=== PATIENT | male | born 1935 | race Caucasian/White ===

== ENCOUNTER → 2018-04-20 10:00 | Outpatient (CLI) | payer MEDICARE, SELFPAY ==
--- NOTE | 2018-04-20 10:07 | RAD_ITS ---
STUDY: X-RAY - LUMBAR SPINE REASON FOR EXAM: Male, 83 years old. Chronic low back pain. The pain radiates down both lower extremities. TECHNIQUE: 5 view(s) of the lumbar spine were obtained including oblique views. COMPARISON: None FINDINGS: There is straightening of the normal lumbar lordosis. There is a mild levoscoliosis of the lumbar spine. There is a normal alignment of the vertebrae. There is multilevel endplate spondylosis of the lumbar vertebrae. There is multi-level degenerative disc disease with multi-level disc space narrowing. There is atherosclerotic calcification of the abdominal aorta without a demonstrated aneurysm. RAD/L/S Spine Min 4 Views IMPRESSION: Degenerative changes of the spine, as detailed above. Straightening of the normal lumbar lordosis. Electronically Signed: Rodrigo Rivero MD at 11:02 EST Tel [phone], Service support ,
== END ==
PROVIDERS: Family Provider Nurse Practitioner; PCP Nurse Practitioner; Referring Provider Nurse Practitioner; Visit Provider Nurse Practitioner
DX: M51.16 Intervertebral disc disorders with radiculopathy, lumbar region (principal); M47.896 Other spondylosis, lumbar region; M48.061 Spinal stenosis, lumbar region without neurogenic claudication
CPT/HCPCS: 72110

== ENCOUNTER 2018-04-22 10:34 | Outpatient (RCR) | payer MEDICARE, SELFPAY ==
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
--- NOTE | 2018-08-05 16:20 | HP.PT.NRP ---
HP - Discharge Summary (1) - Patient Information UZAIR GIRON was seen in my office for initial evaluation on 04/22/18. The following Plan of Care was established for this patient: Initial Frequency: 2-3x /Week Initial Duration: 4-6 Weeks - Anticipated Interventions Patient/Client Instruction: Educate patient on: Condition, Plan of Care, Risk Factors, Benefits of Fitness Program For the Purpose of:: To improve self management Therapeutic Exercise to Include: Strength training, Body mechanics, Postural training, Flexibilty training, Gait and locomotor training, Active ROM, Dynamic Lumbar Stabilization For the Purpose of:: To decrease pain, To increase ROM, To improve muscle performance and motor function, To increase tolerance to activity/condition/position, To improve ability of physical actions for home/community/work/leisure, To improve gait and locomotor functions This patient was last seen in our office 04/22/18. Pertinent comments regarding their Physical therapy will appear below: This patient has not returned to Physical Therapy and is appropriate to return to MD for further follow-up as needed. At this point I will be discontinuing this patient from physical therapy. I would be happy to see this patient again in the future if found appropriate by the physician. Thank you! Keshia Estevez, PT, Cert MDT
== END 2018-04-22 19:00 | disposition home or self-care (01) ==
LOC: PT 10:34
PROVIDERS: Family Provider Nurse Practitioner; PCP Nurse Practitioner; Referring Provider Nurse Practitioner Gerontology; Visit Provider Nurse Practitioner Gerontology
DX: M54.31 Sciatica, right side (principal); M54.9 Dorsalgia, unspecified
CPT/HCPCS: 97162

== ENCOUNTER → 2018-07-19 11:49 | Outpatient (CLI) | payer MEDICARE, SELFPAY ==
[2013-10-22 17:37] VITALS: BMI 27.9
--- NOTE | 2018-07-19 11:56 | RAD_ITS ---
STUDY: X-RAY CHEST REASON FOR EXAM: Male, 83 years old. Dyspnea. Shortness of breath. TECHNIQUE: PA and lateral views of the chest. COMPARISON: None. FINDINGS: Mild deviation of the trachea towards the left side of the midline. This may represent changes secondary to enlarged right lobe of the thyroid. Small bilateral pleural effusions left greater than right with bibasilar atelectasis and/or infiltrates. Follow-up is recommended. Mild vascular congestion. Normal size heart. Normal mediastinum and kiarra. Normal visualized pulmonary arteries. Normal visualized aortic arch and descending thoracic aorta. There are diffuse degenerative changes of the visualized thoracic spine. Normal visualized ribs, clavicles, and shoulders. There is no demonstrated abnormality of the visualized soft tissue structures of the upper abdomen. RAD/Chest PA and Lateral IMPRESSION: Small bilateral pleural effusions with bibasilar infiltration and/or atelectasis worse on the left side. Mild vascular congestion. Follow-up is recommended. Electronically Signed: Rodrigo Rivero MD at 13:23 EST , Service support ,
== END ==
PROVIDERS: Family Provider Nurse Practitioner; PCP Nurse Practitioner; Referring Provider Internal Medicine; Visit Provider Internal Medicine
DX: J90 Pleural effusion, not elsewhere classified (principal); R91.8 Other nonspecific abnormal finding of lung field; R06.02 Shortness of breath
CPT/HCPCS: 71046

== ENCOUNTER → 2018-07-25 08:40 | Outpatient (CLI) | payer MEDICARE, SELFPAY ==
[2013-10-22 17:37] VITALS: BMI 27.9
--- NOTE | 2018-07-25 08:44 | ECHOD_ITS ---
Reason For Study: SOB Procedure This was a 2D Doppler, Color Flow transthoracic echocardiogram. Myocardial strain analysis was performed in this exam to aid in the assessment of cardiac function. Exam performed in department. Left Ventricle Normal LV size. Sigmoid septum. Left ventricular systolic function is normal. The estimated ejection fraction is 60 %. Stage 1 diastolic dysfunction. No regional wall motion abnormalities noted. Right Ventricle Normal RV size. Normal systolic function. Atria Normal left atrium. Normal right atrium. Hypermobile atrial septum. Mitral Valve Normal mitral valve. Tricuspid Valve Normal tricuspid valve. Aortic Valve Trisinus/trileaflet aortic valve. Mild focal aortic valve calcification. Pulmonic Valve Normal pulmonic valve. Great Vessels Normal aortic root. The pulmonary artery is normal size. Normal inferior vena cava. Pericardium/Pleural No pericardial effusion. Medication Performed a rapid injection of agitated mix of 9 cc saline and 1cc air to assess for atrial septal defect. MMode/2D Measurements & Calculations LVIDd: 3.8 cm IVSd: 1.5 cm Ao root diam: 3.2 cm LVIDs: 2.6 cm LVPWd: 1.1 cm RVDd: 4.0 cm FS: 32.2 % LAV(MOD-bp): 42.4 ml LVAd ap4: 22.7 cm2 SV(MOD-sp4): 39.2 ml LAV(MOD-bp) Indexed: 21.8 ml/m2 EDV(MOD-sp4): 54.5 ml LAV(MOD-sp2): 49.2 ml EDV(sp4-el): 54.8 ml LAV(MOD-sp4): 34.8 ml LVAs ap4: 10.3 cm2 ESV(MOD-sp4): 15.3 ml ESV(sp4-el): 13.9 ml EF(MOD-sp4): 71.9 % EF(sp4-el): 74.6 % SV(sp4-el): 40.9 ml LA A4 area: 16.1 cm2 LA dimension(2D): 3.4 cm RA A4 area: 13.6 cm2 Doppler Measurements & Calculations MV E max chas: 66.9 cm/sec Lat Peak E' Chas: 5.9 cm/sec Med Peak E' Chas: 4.3 cm/sec MV A max chas: 104.6 cm/sec E/E' lat: 11.3 E/E' med: 15.5 MV E/A: 0.64 Ao V2 max: 172.9 cm/sec LV V1 max: 129.1 cm/sec PA V2 max: 98.5 cm/sec Ao max P.0 mmHg LV V1 max P.7 mmHg Ao V2 mean: 136.3 cm/sec Ao mean P.9 mmHg Ao V2 VTI: 35.5 cm PI end-d chas: 135.2 cm/sec TR max chas: 297.1 cm/sec TR max P.3 mmHg Interpretation Summary Hypermobile atrial septum. Normal LV size. Sigmoid septum. Left ventricular systolic function is normal. The estimated ejection fraction is 60 %. Stage 1 diastolic dysfunction. The global longitudinal strain is normal. The global longitudinal strain = -20.2 % (normal). Ordering Physician: Whit Hodges Referring Physician: Whit Hodges Performed By: Sudha Drake, ANDREW, RVT
--- NOTE | 2018-07-25 09:35 | RAD_ITS ---
STUDY: X-RAY CHEST REASON FOR EXAM: Male, 83 years old. Increasing shortness of breath. TECHNIQUE: PA and lateral views of the chest. COMPARISON: Comparison is made with prior study dated July 19, 2018. FINDINGS: The previously seen indentation along the right side of the trachea is not seen at this time. This may have been positional in nature. Stable left pleural effusion with underlying infiltration and/or atelectasis. Stable small right pleural effusion with underlying infiltration and/or atelectasis. Normal size heart. Normal mediastinum and kiarra. Normal visualized pulmonary arteries. There is atherosclerotic tortuosity of the aortic arch and descending thoracic aorta. There are diffuse degenerative changes of the visualized thoracic spine. Normal visualized ribs, clavicles, and shoulders. There is no demonstrated abnormality of the visualized soft tissue structures of the upper abdomen. RAD/Chest PA and Lateral IMPRESSION: Stable bilateral pleural effusions with underlying infiltration and/or atelectasis worse on the left side. Electronically Signed: Rodrigo Rivero MD at 10:19 EST , Service support ,
== END ==
PROVIDERS: Family Provider Nurse Practitioner; PCP Nurse Practitioner; Referring Provider Internal Medicine; Visit Provider Internal Medicine
DX: R06.02 Shortness of breath (principal)
CPT/HCPCS: 71046; 93306; A4216

== ENCOUNTER → 2018-08-16 11:53 | Outpatient (CLI) | payer MEDICARE, SELFPAY ==
--- NOTE | 2018-08-16 12:30 | RAD_ITS ---
STUDY: X-RAY CHEST REASON FOR EXAM: Male, 83 years old. Status post right thoracentesis. TECHNIQUE: Portable inspiration and expiration views. COMPARISON: Comparison is made with prior study dated July 25, 2018. FINDINGS: The patient is status post right thoracentesis. There is no evidence of pneumothorax. Mild residual blunting of the right phrenic angle with increased markings at the right base suggestive of atelectasis. Small left pleural effusion with underlying infiltration. RAD/Chest Insp/Exp 2 View IMPRESSION: Status post right thoracentesis. There is no evidence of pneumothorax. Electronically Signed: Rodrigo Rivero, at 13:45 EST , Service support ,
--- NOTE | 2018-08-16 12:31 | US_ITS ---
PROCEDURE: ULTRASOUND GUIDED THORACENTESIS. DATE: August 16, 2018.. INDICATION: Male, 83 years old. Right pleural effusion. PHYSICIAN: Rodrigo Rivero M.D. PROCEDURE: The risks, benefits, and alternatives to the procedure were explained to the patient. The specific risks of bleeding, infection, and pneumothorax requiring chest tube insertion were discussed and accepted. Written informed consent was obtained. Ultrasonographic evaluation of the right lower pleural space was carried out. An adequate pocket was identified. The patient was placed in the sitting, upright position. The overlying skin was prepped and draped in sterile fashion. 1% lidocaine was administered subcutaneously for local anesthesia. Under ultrasound guidance, a 5 Salvadorean thoracentesis needle/catheter system was advanced into the right posterior lower pleural fluid collection. Approximately 950 mL of thick nafisa-colored fluid was drained. The catheter was removed, and a sterile dressing was applied. The patient tolerated the procedure well. A chest x-ray was ordered. US/Thoracentesis W US IMPRESSION: Ultrasound-guided right thoracentesis. Electronically Signed: Rodrigo Rivero, at 14:09 EST , Service support ,
[2018-08-16 12:37] LABS: International Normalized Ratio 1.2; Prothrombin Time (Protime)PT. 14.6 SECONDS (11.7-14.9)
[2018-08-16 14:49] VITALS: BP 113/40; BP 113/58; BP 114/47; BP 139/61; PULSE 71; PULSE 75; PULSE 80; PULSE 81; RESP 16; RESP 18; O2SAT 94; O2SAT 95
== END ==
PROVIDERS: Family Provider Nurse Practitioner; PCP Nurse Practitioner; Referring Provider Internal Medicine Hematology & Oncology; Visit Provider Internal Medicine Hematology & Oncology
DX: J90 Pleural effusion, not elsewhere classified (principal); C85.90 Non-Hodgkin lymphoma, unspecified, unspecified site
CPT/HCPCS: 32555; 36415; 71046; 85610

== ENCOUNTER 2019-02-28 15:29 | Inpatient (IN) | payer MEDICARE, SELFPAY ==
[2019-02-28 15:29] VITALS: BP 125/68; PULSE 91; RESP 16; TEMP 37.7; O2SAT 94; BMI 27.1
--- NOTE | 2019-02-28 15:36 | RAD_ITS ---
STUDY: X-RAY - LEFT WRIST REASON FOR EXAM: Male, 83 years old. Cellulitis. Pain. TECHNIQUE: 3 view(s) of the wrist were obtained. COMPARISON: None. FINDINGS: There is generalized osteopenia. Normal visualized distal radius and ulna. There is degenerative arthrosis of the radiocarpal articulation. Normal distal radioulnar articulation. Normal carpal bones. There is degenerative arthrosis of the carpal articulations. There is degenerative arthrosis of the carpometacarpal articulation of the thumb. Normal second through fifth carpometacarpal articulations. There is a healed fracture of the third metacarpal. Otherwise normal visualized metacarpal bones. The soft tissue structures are unremarkable. There is generalized soft tissue swelling over the wrist and base of the hand. RAD/Wrist min 3 Views IMPRESSION: 1. Degenerative changes without evidence of acute fracture, dislocation or destructive osseous pathology. 2. Diffuse soft tissue swelling over the wrist and base of the hand. 3. Generalized osteopenia. 4. Healed fracture of the third metacarpal. Electronically Signed: Magno Martinez DO at 16:21 EDT Tel [phone], Service support ,
--- NOTE | 2019-02-28 15:37 | ED.DCSUM_ITS ---
History of Present Illness Chief Complaint: Cellulitis Informant: Patient Onset: Days Context: Gradual Onset Timing: Continuous Current Severity: Moderate Maximum Severity: Moderate Narrative: The patient presents to the emergency department with cellulitis of his left arm. The patient had a mechanical fall on . He was wearing a watch on his left wrist. He fell in the grass and suffered an abrasion to the wrist. Over the past 24 hours, the area has gotten more swollen, red, and more painful. He does not think he had a fever. He was actually seen at his primary care office and sent over for further evaluation. The patient does have a history of lymphoma and is on Velcade and Rituxan. He does follow with Dr. Juares. He does get treatment 3 times a month. He denies any other systemic symptoms. He has not taken anything for it. When he fell, he did not strike his head or lose consciousness. Prior similar symptoms: No Recent Illness/Hospitalization: No Past Medical History - Allergies and Home Meds Allergies/Adverse Reactions: Allergies No Known Allergies Allergy (Verified 10/22/13 17:38) Primary Care Physician: Jessica Collins NP-C [Primary Care Provider] - Prior records reviewed: Yes Past Medical History: - - Lymphoma, MGUS Smoking Status: Unknown if ever smoked Review of Systems General: Denies: Chills, Fever, Sweats Eyes: Denies: Visual changes - bilaterally, Diplopia ENT: Denies: Rhinorrhea, Sore throat Cardiovascular: Denies: Chest pain, Palpitations Respiratory: Denies: Dyspnea, Cough, Dyspnea on exertion Gastrointestinal: Denies: Abdominal pain, Nausea, Vomiting, Diarrhea, Melena, Hematochezia Genitourinary: Denies: Dysuria, Hematuria, Frequency Musculoskeletal: Denies: Back pain, Extremity Pain Skin: Denies: Rash, Wounds Neurological: Denies: Headache, Weakness, Numbness Physical Exam Vital Signs/Narrative: Vital Signs Temp Pulse Resp BP Pulse Ox 02/28/19 15:29 100 F H 91 16 125/68 H 94 Inital Vital Signs reviewed: Yes General: Well nourished, Well developed, No Acute Distress Head: Normocephalic, Atraumatic Eyes: Perrl, EOMI ENT: Moist mucous membranes, No rhinorrhea Neck: Supple, Nontender Cardiovascular: Regular rate, Regular rhythm, No murmurs Respiratory: No distress, CTA bilaterally, Chest nontender Abdomen: Soft, Nontender, Nondistended, Normal bowel sounds Back: Nontender, Normal Inspection Extremities: Tenderness, Edema - Patient has edema, erythema, and cellulitis on the dorsum of the left wrist with some skin breakdown. There is lymphangitic streak into the axilla. There is no crepitus. Skin: Normal color, No rash Neurological: Alert, Oriented x3, Cranial nerves II-XII grossly intact, Normal Strength, Normal Sensation Psychological: Normal affect, Normal Mood Diagnostic/Tx/Re-eval Clinical Impression(s) from Imaging Studies Wrist X-Ray 02/28/19 15:36 IMPRESSION: 1. Degenerative changes without evidence of acute fracture, dislocation or destructive osseous pathology. 2. Diffuse soft tissue swelling over the wrist and base of the hand. 3. Generalized osteopenia. 4. Healed fracture of the third metacarpal. Electronically Signed: Magno Martinez DO at 16:21 EDT Tel [phone], Service support , Abnormal Lab Results 02/28/19 02/28/19 02/28/19 15:44 15:44 15:44 WBC 16.3 H RBC 4.31 L Hgb 12.8 L Hct 41.0 MCV 95.1 H MCH 29.7 MCHC 31.2 L RDW Std Deviation 52.5 H RDW Coeff of So 14.8 H Plt Count 182 MPV 10.5 Immature Gran % (Auto) 0.400 Neut % (Auto) 81.1 H Lymph % (Auto) 8.7 L Victoria % (Auto) 9.5 Eos % (Auto) 0.1 Baso % (Auto) 0.2 Absolute Neuts (auto) 13.2 H Absolute Lymphs (auto) 1.42 Nucleated RBC % 0 PT 15.6 H INR 1.3 Sodium 134 L Potassium 4.2 Chloride 102 Carbon Dioxide 29.0 Anion Gap 3 L BUN 21 H Creatinine 1.52 H Estim Creat Clear Calc 38.11 Est GFR (MDRD) Af Amer 57 L Est GFR (MDRD) Non-Af 47 L BUN/Creatinine Ratio 13.8 Glucose 108 H Lactic Acid Calcium 8.7 Total Bilirubin 1.20 H AST 10 L ALT 19 Alkaline Phosphatase 52 Total Protein 7.4 Albumin 2.8 L Globulin 4.6 H Albumin/Globulin Ratio 0.6 L 02/28/19 15:44 WBC RBC Hgb Hct MCV MCH MCHC RDW Std Deviation RDW Coeff of So Plt Count MPV Immature Gran % (Auto) Neut % (Auto) Lymph % (Auto) Victoria % (Auto) Eos % (Auto) Baso % (Auto) Absolute Neuts (auto) Absolute Lymphs (auto) Nucleated RBC % PT INR Sodium Potassium Chloride Carbon Dioxide Anion Gap BUN Creatinine Estim Creat Clear Calc Est GFR (MDRD) Af Amer Est GFR (MDRD) Non-Af BUN/Creatinine Ratio Glucose Lactic Acid Cancelled Calcium Total Bilirubin AST ALT Alkaline Phosphatase Total Protein Albumin Globulin Albumin/Globulin Ratio - Medical Decision Making The patient presents with cellulitis of the dorsum of the left wrist with lymphangitic streaking. He does have a history of immunosuppression and is on chemotherapy for his lymphoma. Metabolic work-up was pursued. Patient does have a leukocytosis and a T-max of 100. However, he is not tachycardic or tachypneic. Blood cultures were obtained. The patient will be started on broad-spectrum antibiotics. Even his symptoms and lymphangitic spread, I do feel that he is going to benefit from admission. The patient was discussed with the hospitalist. Impression 1. Left hand and wrist cellulitis with lymphangitic streak ED Disposition - Plan for ED Patient: Referrals: Jessica Collins, [employer]-C [Primary Care Provider] -
[2019-02-28] MEDS: 0.9% Normal Saline 1,000 ML 1000 ML IV (15:52)
[2019-02-28 16:05] LABS: Absolute Lymphocyte Count 1.42 X10^3/uL (0.83-4.51); Absolute Neutrophil Count 13.2 X10^3/uL (2.0-7.7); Basophil# 0.03 X10^3/uL; Basophil% 0.2 % (0-1); Eosinophil# 0.02 X10^3/uL; Eosinophils% 0.1 % (0-5); Hemoglobin 12.8 g/dL (13.0-16.5); Lymphocyte # 1.42 X10^3/ul (4.0); Lymphocyte % 8.7 % (19-41); Mean Corp Hgb Conc 31.2 g/dL (32-36); Mean Corpuscular Hgb 29.7 pg (27.0-32.0); Mean Corpuscular Volume 95.1 fL (80-94); Mean Platelet Vol. 10.5 fl (6.2-12.0); Monocyte# 1.54 X10^3/uL; Monocyte% 9.5 % (0-10); NRBC Flagged by Analyzer 0 % (0-5); Neutrophil # 13.19 X10^3/uL (2.7-7.7); Neutrophil % 81.1 % (47-70); POSITIVE DIFFERENTIAL YES; Platelet Count 182 K/mm3 (150-450); RBC Distribution Width CV 14.8 % (11.6-14.6); RBC Distribution Width SD 52.5 fl (35.1-43.9); Red Blood Count 4.31 M/mm3 (4.6-6.2); White Blood Count 16.3 K/mm3 (4.4-11.0)
[2019-02-28 16:09] LABS: Differential Indicated SCAN CRITERIA MET
--- NOTE | 2019-02-28 16:09 | NURSING ---
NEEDS REDRAW ON LACTIC ACID. THEY WILL REPRINT LABELS
[2019-02-28 16:12] LABS: International Normalized Ratio 1.3; Prothrombin Time (Protime)PT. 15.6 SECONDS (11.7-14.9)
[2019-02-28 16:20] LABS: ALB/GLOB Ratio 0.6 RATIO (0.9-2.4); AST(SGOT) 10 U/L (15-37); Alanine Aminotransfer ALT/SGPT 19 U/L (16-61); Albumin, Serum 2.8 g/dL (3.2-5.0); Alkaline Phosphatase 52 U/L (45-117); Anion Gap 3 (5-15); BUN 21 mg/dL (7-18); BUN/Creat Ratio 13.8 RATIO (10-20); Calcium,Total 8.7 mg/dL (8.5-10.1); Chloride 102 mmol/L (98-107); Creatinine, Serum 1.52 mg/dL (0.70-1.30); EST Glomerular Filtration Rate 47 mL/min (>60); Est Glom Filt Rate - Afr Amer 57 mL/min (>60); Estimated Creatinine Clearance 38.11 ml/min; Globulin 4.6 g/dL (2.2-4.2); Glucose 108 mg/dL (74-106); Potassium 4.2 mmol/L (3.5-5.1); Protein, Total 7.4 g/dL (6.4-8.2); Sodium Level 134 mmol/L (136-145)
[2019-02-28 16:23] VITALS: BMI 27.2
[2019-02-28] MEDS: Ceftriaxone 1 GM/50 ML BAG IV (16:37)
[2019-02-28 16:38] LABS: Differential Comment SCANNED
--- NOTE | 2019-02-28 16:38 | NURSING ---
MED SURG CELLULITIS LT ARM JOÃO OBS
--- NOTE | 2019-02-28 16:53 | HP.PCM_ITS ---
Problem List (1) Lymphoma Status: Acute (2) Cellulitis of arm, left Status: Acute History of Present Illness Date of Admission: 02/28/19 Chief Complaint: Right arm redness and swelling The patient is a 83 year old M with a history of lymphoma presents after a fall on . He was outside and fell on his left side without loss of consciousness, the fall was mechanical, and he landed on his left wrist and was wearing a watch at the time. The watch caused an abrasion but he did not think anything of it, and he treated it locally. On Wednesday he noticed some redness and then today he noticed some significant swelling with spreading of the redness up into his left armpit. He went to his PCP who recommended he come into the ER. In the ER he was found to have a leukocytosis of 16 as well as a temperature of 100, without any signs of sepsis. Currently lactate is pending. An x-ray of the left wrist was negative for any fracture or signs of osteomyelitis. He was given a dose of Rocephin and vancomycin in the ER. Past Medical History Allergies No Known Allergies Allergy (Verified 10/22/13 17:38) Home Medications: Ambulatory Orders Medication Instructions Recorded Acyclovir [Zovirax] 200 po.syringe PO BID 02/28/19 Cholecalciferol (Vitamin D3) 2,000 unit PO DAILY 02/28/19 [Vitamin D3] Dexamethasone 20 mg PO PRN 02/28/19 Finasteride 5 mg PO DAILY 02/28/19 Furosemide [Lasix] 40 mg PO DAILY 02/28/19 Losartan Potassium 100 mg PO DAILY 02/28/19 Melatonin 10 mg PO QHS PRN PRN 02/28/19 Tamsulosin HCl 0.4 mg PO DAILY 02/28/19 Surgical History: - - Back surgery Smoking Status: Former smoker Tobacco Use: Cigarettes Alcohol: None Drugs: None - *Family History Paternal History Items: Cancer Review of Systems Constitutional: Denies: Chills, Fever, Weight Change HEENT: Denies: Head Aches, Sinus Congestion, Sinus Drainage Cardiovascular: Denies: Chest Pain, Palpitations Respiratory: Denies: Cough, Shortness of breath at rest, Sputum production Gastrointestinal: Denies: Abdominal Pain, Nausea, Vomiting Genitourinary: Denies: Dysuria Musculoskeletal: Denies: Joint Pain, Joint Tenderness Skin: Reports: Wounds - 2 wounds on his left wrist with no purulent drainage but surrounding erythema with streaking up into his left axilla. Denies: Rash Neurological: Denies: Numbness, Tingling, Focal weakness Psychiatric: Denies: Anxiety, Depression Hematologic/ Lymphatic: Denies: Easy Bruising, Easy Bleeding VTE Information - Inpt Only VTE Present on Admission: No Patient Problems: Active and Suspected Problems Lymphoma (Acute) Cellulitis of arm, left (Acute) - Physical Exam General: Alert, Oriented x3, Cooperative, No apparent distress HEENT: Atraumatic, PERRLA, EOMI, Normocephalic Oral: Moist Mucosa Neck: Supple, No JVD Lungs: Clear to auscultation, Normal air movement, No rhonchi, No wheeze, No rales Cardiovascular: Regular rate, Regular Rhythm, Normal S1, Normal S2, No murmurs Abdomen: Soft, Non Tender, Non-Distended, No Hepato-splenomegaly Extremities: No edema, Capillary Refill Less than 3 Seconds Skin: Ulcer/ Wound - 2 wounds on his left dorsal wrist with surrounding erythema and swelling. There appears to be spread of the erythema up into his left axilla Neurological: Neuro grossly intact, Sensory exam intact to light touch and pain Psych/Mental Status: Normal Affect, Appropriate Vital Signs Temp Pulse Resp BP Pulse Ox 100 F H 91 16 125/68 H 94 02/28/19 15:29 02/28/19 15:29 02/28/19 15:29 02/28/19 15:29 02/28/19 15:29 Weight: 184 lb Body Mass Index (BMI) 27.1 Intake and Output for Last 24 Hours 02/26/19 02/27/19 02/28/19 23:59 23:59 23:59 Intake Total 766.67 / 766.67 Balance 766.67 / 766.67 Laboratory Tests Past 24 Hrs 02/28/19 02/28/19 02/28/19 15:44 15:44 15:44 WBC 16.3 H RBC 4.31 L Hgb 12.8 L Hct 41.0 MCV 95.1 H MCH 29.7 MCHC 31.2 L RDW Std Deviation 52.5 H RDW Coeff of So 14.8 H Plt Count 182 MPV 10.5 Immature Gran % (Auto) 0.400 Neut % (Auto) 81.1 H Lymph % (Auto) 8.7 L [place] % (Auto) 9.5 Eos % (Auto) 0.1 Baso % (Auto) 0.2 Absolute Neuts (auto) 13.2 H Absolute Lymphs (auto) 1.42 Nucleated RBC % 0 Differential Comment SCANNED Diff Path Review October foll PT 15.6 H INR 1.3 Sodium 134 L Potassium 4.2 Chloride 102 Carbon Dioxide 29.0 Anion Gap 3 L BUN 21 H Creatinine 1.52 H Estim Creat Clear Calc 38.11 Est GFR (MDRD) Af Amer 57 L Est GFR (MDRD) Non-Af 47 L BUN/Creatinine Ratio 13.8 Glucose 108 H Lactic Acid Calcium 8.7 Total Bilirubin 1.20 H AST 10 L ALT 19 Alkaline Phosphatase 52 Total Protein 7.4 Albumin 2.8 L Globulin 4.6 H Albumin/Globulin Ratio 0.6 L 02/28/19 02/28/19 15:44 16:20 WBC RBC Hgb Hct MCV MCH MCHC RDW Std Deviation RDW Coeff of So Plt Count MPV Immature Gran % (Auto) Neut % (Auto) Lymph % (Auto) [place] % (Auto) Eos % (Auto) Baso % (Auto) Absolute Neuts (auto) Absolute Lymphs (auto) Nucleated RBC % Differential Comment Diff Path Review PT INR Sodium Potassium Chloride Carbon Dioxide Anion Gap BUN Creatinine Estim Creat Clear Calc Est GFR (MDRD) Af Amer Est GFR (MDRD) Non-Af BUN/Creatinine Ratio Glucose Lactic Acid Cancelled Pending Calcium Total Bilirubin AST ALT Alkaline Phosphatase Total Protein Albumin Globulin Albumin/Globulin Ratio Assessment/Plan All Active Problems Lymphoma (Acute) Cellulitis of arm, left (Acute) 1. Cellulitis of the left arm/AWILDA -He received vancomycin and Rocephin in the ER -We will proceed with gentle IV fluids at 75 as well as Ancef 2 g IV 3 times daily -His baseline creatinine function from labs on January 20 was 1.22, and currently he is 1.52 -We will continue to monitor, blood cultures are pending 2. History of lymphoma -Currently receiving treatment at the [facility] -We will continue to monitor blood counts and continue with antibiotics -Continue with his twice daily acyclovir 3. Hypertension -Continue with losartan -Pressures a little bit elevated in the ER this is likely secondary to discomfort in his acute illness we will monitor -We will hold his Lasix for ankle edema while receiving IV fluids 4. BPH -Stable -Continue with finasteride and Flomax DVT: Heparin Code Visit OBSV E&M: 94327 Initial observation care L3
[2019-02-28 17:06] LABS: Lactic Acid 1.3 mmol/L (0.4-2.0)
[2019-02-28 17:17] VITALS: BMI 27.3
[2019-02-28 17:21] VITALS: BP 144/56; PULSE 77; RESP 18; TEMP 38.1; O2SAT 94
[2019-02-28 20:20] VITALS: BP 136/63; PULSE 81; RESP 16; TEMP 39; O2SAT 93
[2019-02-28] MEDS: Acetaminophen 325 MG Tablet 650 MG PO (20:39)
[2019-02-28] MEDS: Cefazolin 2 GM in 0.9% Normal Saline 100 ML IV (21:26)
[2019-02-28] MEDS: Heparin Injection (Vial) 5,000 UNIT/ML VIAL 5000 UNIT SC (21:29)
[2019-02-28] MEDS: Acyclovir 200 MG Capsule PO (21:30)
[2019-02-28 23:10] VITALS: TEMP 37.1
[2019-03-01] MEDS: 0.9% Normal Saline 1,000 ML 75 ML IV (01:57)
[2019-03-01 02:55] VITALS: BP 145/75; PULSE 77; RESP 16; TEMP 37.4; O2SAT 93
--- NOTE | 2019-03-01 04:29 | PCM.PN.BLA ---
Progress Note With preliminary blood cultures showing gram-negative rods will change antibiotic from cefazolin to Zosyn renally dosed.
[2019-03-01] MEDS: Acetaminophen 325 MG Tablet 650 MG PO ×2 (05:40→15:16)
[2019-03-01 05:44] LABS: Absolute Lymphocyte Count 1.03 X10^3/uL (0.83-4.51); Absolute Neutrophil Count 10.1 X10^3/uL (2.0-7.7); Basophil# 0.03 X10^3/uL; Basophil% 0.2 % (0-1); Eosinophil# 0.05 X10^3/uL; Eosinophils% 0.4 % (0-5); Hematocrit 37.3 % (40-54); Hemoglobin 11.9 g/dL (13.0-16.5); Lymphocyte # 1.03 X10^3/ul (4.0); Lymphocyte % 8.2 % (19-41); Mean Corp Hgb Conc 31.9 g/dL (32-36); Mean Corpuscular Hgb 30.4 pg (27.0-32.0); Mean Corpuscular Volume 95.4 fL (80-94); Mean Platelet Vol. 10.6 fl (6.2-12.0); Monocyte# 1.29 X10^3/uL; Monocyte% 10.2 % (0-10); NRBC Flagged by Analyzer 0 % (0-5); Neutrophil # 10.14 X10^3/uL (2.7-7.7); Neutrophil % 80.5 % (47-70); Platelet Count 167 K/mm3 (150-450); RBC Distribution Width CV 14.9 % (11.6-14.6); RBC Distribution Width SD 53.1 fl (35.1-43.9); Red Blood Count 3.91 M/mm3 (4.6-6.2); White Blood Count 12.6 K/mm3 (4.4-11.0)
[2019-03-01] MEDS: Piperacil/Tazobactam 3.375 GM Q8 PREMIX IV (05:44)
[2019-03-01 06:01] LABS: Anion Gap 8 (5-15); BUN 18 mg/dL (7-18); Calcium,Total 8.3 mg/dL (8.5-10.1); Chloride 108 mmol/L (98-107); EST Glomerular Filtration Rate 62 mL/min (>60); Est Glom Filt Rate - Afr Amer 75 mL/min (>60); Estimated Creatinine Clearance 48.28 ml/min; Glucose 98 mg/dL (74-106); Potassium 3.9 mmol/L (3.5-5.1); Sodium Level 141 mmol/L (136-145)
[2019-03-01 06:59] VITALS: TEMP 37.4
[2019-03-01] MEDS: Tamsulosin HCl 0.4 MG Capsule PO (08:00)
--- NOTE | 2019-03-01 09:16 | NURSING ---
wound photo: left wrist
[2019-03-01 09:45] VITALS: BP 109/64; PULSE 84; RESP 18; TEMP 36.7; O2SAT 95
--- NOTE | 2019-03-01 09:47 | CASEMGMT ---
Social Work Note Per family sociologist questions, pt hasn't completed HCPOA or LW and denied wanting information. Maria Dolores Hatfield VP MARKETING, CITY MANAGER
--- NOTE | 2019-03-01 09:47 | CASEMGMT ---
As per admitting RN, pt has no LW/POA and declined any information in regard to advance directives. LATRICIA Major
[2019-03-01] MEDS: Finasteride 5 MG Tablet PO (09:52)
[2019-03-01] MEDS: Losartan Potassium 100 MG Tablet PO (09:52)
[2019-03-01] MEDS: Acyclovir 200 MG Capsule PO ×2 (09:52→21:42)
[2019-03-01] MEDS: Heparin Injection (Vial) 5,000 UNIT/ML VIAL 5000 UNIT SC ×2 (09:54→21:42)
[2019-03-01 11:03] VITALS: PULSE 80
--- NOTE | 2019-03-01 11:15 | CASEMGMT ---
RN CM SLUBBER MACHINE OPERATOR CM to room to meet with patient for initial transition planning/care coordination assessment. RADHA TRAN introduced self and role at [facility]. Pt voices understanding and consents to assessment at this time. Pt resting in bed in no distress at this time. Pt is A/O at this time and answers all questions appropriately. Care providers, pharmacy, and demographics verified/updated at this time. PCP: Jessica Collins Specialists: [facility], Equipment Service Lead in [place]--states does not remember the doctor's name Preferred Pharmacy: [facility] Insurance: [employer] Prescription Benefit: Yes Living Will/HPOA: does not have LW or HCPOA . Interested in more information but states does not want to talk with SW at this time to complete paperwork. Provided information on advanced directives and given Social Service rac card with number to call if chooses in the future to utilize [facility] social work for advanced directive completion. Educated patient that, if patient so chooses, can come back to [facility] and meet with a SW as an outpatient to complete health care advanced directives. Patient expresses understanding. LNOK: Son, Jet Unger. States he does not want to add his information to demographics/contact list d/t He has cancer and he's going through so much right now himself. Living Arrangements: Lives with his girlfriend/significant other, Genesis Núñez. States he is independent with ADL's but she does the meals, laundry, and bills. Transportation: Pt states drives self and states no transportation concerns at this time. States Genesis drives also. DME: Denies using any DME and denies needs. HHC/SNF: No history of either. Denies needs and no needs identified. States has been to [facility] in the past but does not feel that he needs OP therapy at this time either. He was made aware, if in the future, he decides he would like OP therapy, to discuss this with his PCP. Pt voices understanding. Pt wishes to return home and states has no concerns with going home at time of discharge. 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 CM to follow for any discharge planning/needs. Pt voices no further concerns/needs at this time. Advised pt to ask for CM if any further questions/concerns/needs arise. Voices understanding. PLAN: Home w/support of significant other and discharge plans in place. Lester BSN RN CM
--- NOTE | 2019-03-01 12:21 | PCM.PROGNOTE ---
<Milena Joseph - Last Filed: 03/01/19 12:42> Patient Problems: Active and Suspected Problems Cellulitis of arm, left (Acute) Subjective: Patient seen and examined. Denies left upper extremity pain. Continues to have redness, warmth. Denies other current symptoms. - Physical Exam General: Alert, Oriented x3, Cooperative HEENT: Atraumatic, PERRLA, EOMI, Normocephalic Neck: Supple, No JVD, Negative Carotid Bruits Lungs: Clear to auscultation, Normal air movement Cardiovascular: Regular rate, Regular Rhythm, Normal S1, Normal S2, No murmurs Abdomen: Bowel Sounds Present, Soft, Non Tender, Non-Distended Extremities: No clubbing, No cyanosis, Capillary Refill Less than 3 Seconds, Edema - LUE Skin: - - Left upper extremity redness and warmth extending from hand to mid bicep area, abrasions left wrist/forearm area. No evidence of abscess or hematoma. Musculoskeletal: No Tenderness to Palpation of Joints or Extremities Neurological: Cranial nerves II-XII grossly intact, Neuro grossly intact Psych/Mental Status: Normal Affect, Appropriate Vital Signs Temp Pulse Resp BP Pulse Ox 98.0 F 80 18 109/64 95 03/01/19 09:45 03/01/19 11:03 03/01/19 09:45 03/01/19 09:45 03/01/19 09:45 Oxygen Delivery Method Room Air Weight: 185 lb 0.014 oz Body Mass Index (BMI) 27.3 Intake and Output for Last 24 Hours 02/27/19 02/28/19 03/01/19 23:59 23:59 23:59 Intake Total 1202.92 / 1452.92 877.08 / 877.08 Balance 1202.92 / 1452.92 877.08 / 877.08 Microbiology Past 72 Hours 02/28/19 15:44 Blood Culture - Preliminary Blood Culture (Wb) - Anticubital Right 02/28/19 15:49 Blood Culture - Preliminary Blood Culture (Wb) - Right Hand Laboratory Tests Past 24 Hrs 02/28/19 02/28/19 02/28/19 15:44 15:44 15:44 WBC 16.3 H RBC 4.31 L Hgb 12.8 L Hct 41.0 MCV 95.1 H MCH 29.7 MCHC 31.2 L RDW Std Deviation 52.5 H RDW Coeff of So 14.8 H Plt Count 182 MPV 10.5 Immature Gran % (Auto) 0.400 Neut % (Auto) 81.1 H Lymph % (Auto) 8.7 L [place] % (Auto) 9.5 Eos % (Auto) 0.1 Baso % (Auto) 0.2 Absolute Neuts (auto) 13.2 H Absolute Lymphs (auto) 1.42 Nucleated RBC % 0 Differential Comment SCANNED Diff Path Review May foll PT 15.6 H INR 1.3 Sodium 134 L Potassium 4.2 Chloride 102 Carbon Dioxide 29.0 Anion Gap 3 L BUN 21 H Creatinine 1.52 H Estim Creat Clear Calc 38.11 Est GFR (MDRD) Af Amer 57 L Est GFR (MDRD) Non-Af 47 L BUN/Creatinine Ratio 13.8 Glucose 108 H Lactic Acid Calcium 8.7 Total Bilirubin 1.20 H AST 10 L ALT 19 Alkaline Phosphatase 52 Total Protein 7.4 Albumin 2.8 L Globulin 4.6 H Albumin/Globulin Ratio 0.6 L 02/28/19 02/28/19 03/01/19 15:44 16:20 05:16 WBC 12.6 H RBC 3.91 L Hgb 11.9 L Hct 37.3 L MCV 95.4 H MCH 30.4 MCHC 31.9 L RDW Std Deviation 53.1 H RDW Coeff of So 14.9 H Plt Count 167 MPV 10.6 Immature Gran % (Auto) 0.500 Neut % (Auto) 80.5 H Lymph % (Auto) 8.2 L [place] % (Auto) 10.2 H Eos % (Auto) 0.4 Baso % (Auto) 0.2 Absolute Neuts (auto) 10.1 H Absolute Lymphs (auto) 1.03 Nucleated RBC % 0 Differential Comment Diff Path Review PT INR Sodium Potassium Chloride Carbon Dioxide Anion Gap BUN Creatinine Estim Creat Clear Calc Est GFR (MDRD) Af Amer Est GFR (MDRD) Non-Af BUN/Creatinine Ratio Glucose Lactic Acid Cancelled 1.3 Calcium Total Bilirubin AST ALT Alkaline Phosphatase Total Protein Albumin Globulin Albumin/Globulin Ratio 03/01/19 05:16 WBC RBC Hgb Hct MCV MCH MCHC RDW Std Deviation RDW Coeff of So Plt Count MPV Immature Gran % (Auto) Neut % (Auto) Lymph % (Auto) [place] % (Auto) Eos % (Auto) Baso % (Auto) Absolute Neuts (auto) Absolute Lymphs (auto) Nucleated RBC % Differential Comment Diff Path Review PT INR Sodium 141 Potassium 3.9 Chloride 108 H Carbon Dioxide 25.0 Anion Gap 8 BUN 18 Creatinine 1.20 Estim Creat Clear Calc 48.28 Est GFR (MDRD) Af Amer 75 Est GFR (MDRD) Non-Af 62 BUN/Creatinine Ratio 15.0 Glucose 98 Lactic Acid Calcium 8.3 L Total Bilirubin AST ALT Alkaline Phosphatase Total Protein Albumin Globulin Albumin/Globulin Ratio Medical Necessity - Tobacco Use Smoking Status: Former smoker Tobacco Use: Cigarettes Assessment/Plan All Active Problems Cellulitis of arm, left (Acute) 1. Acute sepsis secondary to left upper extremity cellulitis with associated GNR bacteremia-wound RN consult. IV Zosyn. ID consult. Repeat blood cultures in a.m. PRN pain regimen. 2. Acute kidney injury-resolved with IV fluids. 3. Recent mechanical fall, prior to admission, resulting in left wrist abrasions/cellulitis- PT/OT. Fall precautions. 4. Lymphoma-following with Dr. Barraza. Alden. 5. Hypertension-stable, continue home losartan regimen. Lasix on hold. 6. BPH-continue home Flomax, finasteride regimen. DVT prophylaxis-heparin subcu This patient was seen by GEORGIE Gill under the supervision of Dr. Bacon. <Cele Bacon E - Last Filed: 03/01/19 13:04> - Physical Exam Vital Signs Temp Pulse Resp BP Pulse Ox 98.0 F 80 18 109/64 95 03/01/19 09:45 03/01/19 11:03 03/01/19 09:45 03/01/19 09:45 03/01/19 09:45 Oxygen Delivery Method Room Air Weight: 185 lb 0.014 oz Body Mass Index (BMI) 27.3 Intake and Output for Last 24 Hours 02/27/19 02/28/19 03/01/19 23:59 23:59 23:59 Intake Total 1202.92 / 1452.92 877.08 / 877.08 Balance 1202.92 / 1452.92 877.08 / 877.08 Microbiology Past 72 Hours 02/28/19 15:44 Blood Culture - Preliminary Blood Culture (Wb) - Anticubital Right 02/28/19 15:49 Blood Culture - Preliminary Blood Culture (Wb) - Right Hand Laboratory Tests Past 24 Hrs 02/28/19 02/28/19 02/28/19 15:44 15:44 15:44 WBC 16.3 H RBC 4.31 L Hgb 12.8 L Hct 41.0 MCV 95.1 H MCH 29.7 MCHC 31.2 L RDW Std Deviation 52.5 H RDW Coeff of So 14.8 H Plt Count 182 MPV 10.5 Immature Gran % (Auto) 0.400 Neut % (Auto) 81.1 H Lymph % (Auto) 8.7 L [place] % (Auto) 9.5 Eos % (Auto) 0.1 Baso % (Auto) 0.2 Absolute Neuts (auto) 13.2 H Absolute Lymphs (auto) 1.42 Nucleated RBC % 0 Differential Comment SCANNED Diff Path Review May foll PT 15.6 H INR 1.3 Sodium 134 L Potassium 4.2 Chloride 102 Carbon Dioxide 29.0 Anion Gap 3 L BUN 21 H Creatinine 1.52 H Estim Creat Clear Calc 38.11 Est GFR (MDRD) Af Amer 57 L Est GFR (MDRD) Non-Af 47 L BUN/Creatinine Ratio 13.8 Glucose 108 H Lactic Acid Calcium 8.7 Total Bilirubin 1.20 H AST 10 L ALT 19 Alkaline Phosphatase 52 Total Protein 7.4 Albumin 2.8 L Globulin 4.6 H Albumin/Globulin Ratio 0.6 L 02/28/19 02/28/19 03/01/19 15:44 16:20 05:16 WBC 12.6 H RBC 3.91 L Hgb 11.9 L Hct 37.3 L MCV 95.4 H MCH 30.4 MCHC 31.9 L RDW Std Deviation 53.1 H RDW Coeff of So 14.9 H Plt Count 167 MPV 10.6 Immature Gran % (Auto) 0.500 Neut % (Auto) 80.5 H Lymph % (Auto) 8.2 L [place] % (Auto) 10.2 H Eos % (Auto) 0.4 Baso % (Auto) 0.2 Absolute Neuts (auto) 10.1 H Absolute Lymphs (auto) 1.03 Nucleated RBC % 0 Differential Comment Diff Path Review PT INR Sodium Potassium Chloride Carbon Dioxide Anion Gap BUN Creatinine Estim Creat Clear Calc Est GFR (MDRD) Af Amer Est GFR (MDRD) Non-Af BUN/Creatinine Ratio Glucose Lactic Acid Cancelled 1.3 Calcium Total Bilirubin AST ALT Alkaline Phosphatase Total Protein Albumin Globulin Albumin/Globulin Ratio 03/01/19 05:16 WBC RBC Hgb Hct MCV MCH MCHC RDW Std Deviation RDW Coeff of So Plt Count MPV Immature Gran % (Auto) Neut % (Auto) Lymph % (Auto) [place] % (Auto) Eos % (Auto) Baso % (Auto) Absolute Neuts (auto) Absolute Lymphs (auto) Nucleated RBC % Differential Comment Diff Path Review PT INR Sodium 141 Potassium 3.9 Chloride 108 H Carbon Dioxide 25.0 Anion Gap 8 BUN 18 Creatinine 1.20 Estim Creat Clear Calc 48.28 Est GFR (MDRD) Af Amer 75 Est GFR (MDRD) Non-Af 62 BUN/Creatinine Ratio 15.0 Glucose 98 Lactic Acid Calcium 8.3 L Total Bilirubin AST ALT Alkaline Phosphatase Total Protein Albumin Globulin Albumin/Globulin Ratio Assessment/Plan Hospitalist note: I am seeing this patient in conjunction with Milena Joseph. I independently seen and examined the patient. Progress note above, laboratory data and imaging studies reviewed and I concur with the above treatment plan. Patient denies any symptoms today. Denied left upper extremity pain. Denies fever chills. Denies chest pain or shortness of breath. Maximum temperature overnight was 99.4. Other vital signs are stable. - Physical Exam General: Alert, Oriented x3, Cooperative, No apparent distress. HEENT: Atraumatic, PERRLA, EOMI. Neck: Supple, No JVD, Negative Carotid Bruits, Trachea Midline, Thyroid Normal. Lungs: Clear to auscultation, Normal air movement, No rhonchi, No wheeze, No rales. Cardiovascular: Regular rate, Regular Rhythm, Normal S1, Normal S2, PMI Normal. Abdomen: Bowel Sounds Present, Soft, Non Tender, Non-Distended, No Hepato-splenomegaly. Extremities: No clubbing, No cyanosis, No edema. Left forearm: Swelling and erythema around mid left forearm extending down to the left wrist, hot to palpation. Skin: No rashes, No breakdown Neurological: Cranial nerves are intact, neuro grossly intact Vital Signs are stable. Assessment and plan: #1 acute left forearm/wrist cellulitis/sepsis: Patient is on IV Zosyn. Maximum temperature overnight was 99.4 Fahrenheit, other vital signs are stable. White blood cell count is trending down. Blood culture revealed gram-negative rods on 2 bottles. Plan to continue same treatment. #2 gram-negative bacteremia: Probable source is the left forearm cellulitis as patient had a skin abrasion and then he started having cellulitis. He is on IV Zosyn as above, plan as above. #3 acute kidney injury: Secondary to infection and sepsis. Patient is on IV fluids. On admission, creatinine 1.52, came down to 1.2 today, improving. #4 other chronic medical problems: Stable, continue current medications as above. This note was generated with [employer] dictation software. It may contain incorrect words, spelling, and punctuation that were not noted in checking the note before signing. Code Visit Inpatient E&M: 78762 Subs Hosp L2
[2019-03-01 14:00] LABS: Pathologist Review Reviewed
--- NOTE | 2019-03-01 15:04 | PCM.HP.ID ---
Problem List (1) Bacteremia due to Gram-negative bacteria Status: Acute Reason for Consult: (+) bcx Consulted by: Dr. Bacon History of Present Illness: The patient is a 83 year old M with lymphoma, on chemo, next round to start in next 1-2 weeks, presented with LUE redness, pain, serous drainage after fall on 02/23/19. Arm got cut by his watch. He cleaned it off, did not seek medical care. Arm worsened, developed fever and chills. Came to ED, given vanc/ceftriaxone, changed to cefazolin, then to zosyn. Bcx x2 with GNR. Fever to 102.2. Feeling better today, able to move arm better. Full ROS performed and neg except as noted above. - Medical History Past Medical History (Chronic Problems): Chronic Problems Benign prostatic hyperplasia (Chronic) Hypertension (Chronic) Lymphoma (Chronic) Allergies/Adverse Reactions: Allergies No Known Allergies Allergy (Verified 10/22/13 17:38) Home Medications: Ambulatory Orders Medication Instructions Recorded Acyclovir [Zovirax] 200 po.syringe PO BID 02/28/19 Cholecalciferol (Vitamin D3) 2,000 unit PO DAILY 02/28/19 [Vitamin D3] Dexamethasone 20 mg PO PRN PRN 02/28/19 Finasteride 5 mg PO DAILY 02/28/19 Furosemide [Lasix] 40 mg PO DAILY 02/28/19 Losartan Potassium 100 mg PO DAILY 02/28/19 Melatonin 10 mg PO QHS PRN PRN 02/28/19 Tamsulosin HCl 0.4 mg PO DAILY 02/28/19 - Social History SMOKING STATUS:: Former smoker Vital Signs Temp Pulse Resp BP Pulse Ox 98.0 F 80 18 109/64 95 03/01/19 09:45 03/01/19 11:03 03/01/19 09:45 03/01/19 09:45 03/01/19 09:45 Oxygen Delivery Method Room Air Weight: 83.915 kg Body Mass Index (BMI) 27.3 Microbiology Past 72 Hours 02/28/19 15:44 Blood Culture - Preliminary Blood Culture (Wb) - Anticubital Right 02/28/19 15:49 Blood Culture - Preliminary Blood Culture (Wb) - Right Hand Laboratory Tests Past 24 Hrs 02/28/19 02/28/19 02/28/19 15:44 15:44 15:44 WBC 16.3 H RBC 4.31 L Hgb 12.8 L Hct 41.0 MCV 95.1 H MCH 29.7 MCHC 31.2 L RDW Std Deviation 52.5 H RDW Coeff of So 14.8 H Plt Count 182 MPV 10.5 Immature Gran % (Auto) 0.400 Neut % (Auto) 81.1 H Lymph % (Auto) 8.7 L [place] % (Auto) 9.5 Eos % (Auto) 0.1 Baso % (Auto) 0.2 Absolute Neuts (auto) 13.2 H Absolute Lymphs (auto) 1.42 Nucleated RBC % 0 Differential Comment SCANNED Diff Path Review Reviewed PT 15.6 H INR 1.3 Sodium 134 L Potassium 4.2 Chloride 102 Carbon Dioxide 29.0 Anion Gap 3 L BUN 21 H Creatinine 1.52 H Estim Creat Clear Calc 38.11 Est GFR (MDRD) Af Amer 57 L Est GFR (MDRD) Non-Af 47 L BUN/Creatinine Ratio 13.8 Glucose 108 H Lactic Acid Calcium 8.7 Total Bilirubin 1.20 H AST 10 L ALT 19 Alkaline Phosphatase 52 Total Protein 7.4 Albumin 2.8 L Globulin 4.6 H Albumin/Globulin Ratio 0.6 L 02/28/19 02/28/19 03/01/19 15:44 16:20 05:16 WBC 12.6 H RBC 3.91 L Hgb 11.9 L Hct 37.3 L MCV 95.4 H MCH 30.4 MCHC 31.9 L RDW Std Deviation 53.1 H RDW Coeff of So 14.9 H Plt Count 167 MPV 10.6 Immature Gran % (Auto) 0.500 Neut % (Auto) 80.5 H Lymph % (Auto) 8.2 L [place] % (Auto) 10.2 H Eos % (Auto) 0.4 Baso % (Auto) 0.2 Absolute Neuts (auto) 10.1 H Absolute Lymphs (auto) 1.03 Nucleated RBC % 0 Differential Comment Diff Path Review PT INR Sodium Potassium Chloride Carbon Dioxide Anion Gap BUN Creatinine Estim Creat Clear Calc Est GFR (MDRD) Af Amer Est GFR (MDRD) Non-Af BUN/Creatinine Ratio Glucose Lactic Acid Cancelled 1.3 Calcium Total Bilirubin AST ALT Alkaline Phosphatase Total Protein Albumin Globulin Albumin/Globulin Ratio 03/01/19 05:16 WBC RBC Hgb Hct MCV MCH MCHC RDW Std Deviation RDW Coeff of So Plt Count MPV Immature Gran % (Auto) Neut % (Auto) Lymph % (Auto) [place] % (Auto) Eos % (Auto) Baso % (Auto) Absolute Neuts (auto) Absolute Lymphs (auto) Nucleated RBC % Differential Comment Diff Path Review PT INR Sodium 141 Potassium 3.9 Chloride 108 H Carbon Dioxide 25.0 Anion Gap 8 BUN 18 Creatinine 1.20 Estim Creat Clear Calc 48.28 Est GFR (MDRD) Af Amer 75 Est GFR (MDRD) Non-Af 62 BUN/Creatinine Ratio 15.0 Glucose 98 Lactic Acid Calcium 8.3 L Total Bilirubin AST ALT Alkaline Phosphatase Total Protein Albumin Globulin Albumin/Globulin Ratio - Other Studies Radiology: [] reviewed Other Studies: [] Route of nutrition/ use of supplements: [] Nutritional Intake: [] IV Site: [] Valentino Catheter: [] - Physical Exam General: Alert, Oriented x3, Cooperative, No apparent distress HEENT: Atraumatic, PERRLA, EOMI Neck: Supple, No Nodes Lungs: Clear to auscultation, Normal air movement Cardiovascular: Regular rate, Regular Rhythm Abdomen: Soft, Non Tender, Non-Distended Extremities: - - Some L forearm swelling Skin: Ulcer/ Wound - reviewed photos L forearm IV Site: Peripheral, without redness Neurological: Cranial nerves II-XII grossly intact - Assessment/Plan Antibiotics: [] Assessment/Plan: [] Active and Suspected Problems Cellulitis of arm, left (Acute) sepsis due to GNR bacteremia from LUE infection - cont zosyn. Wbc and fever improved. Arm feeling better. Will follow, thank you, d/w primary team.
[2019-03-01 15:11] VITALS: BP 101/55; PULSE 85; RESP 18; TEMP 38.3; O2SAT 93
--- NOTE | 2019-03-01 15:33 | CHAPLAIN ---
attempts made but patient was busy and then sleeping; left a calling card
[2019-03-01 17:00] VITALS: TEMP 37.4
[2019-03-02 02:16] VITALS: BP 119/59; PULSE 67; RESP 16; TEMP 37.7; O2SAT 94
[2019-03-02] MEDS: 0.9% Normal Saline 1,000 ML 75 ML IV ×2 (03:20→11:02)
[2019-03-02 05:43] LABS: Hematocrit 34.6 % (40-54); Hemoglobin 11.1 g/dL (13.0-16.5); Mean Corp Hgb Conc 32.1 g/dL (32-36); Mean Corpuscular Hgb 30.4 pg (27.0-32.0); Mean Corpuscular Volume 94.8 fL (80-94); Mean Platelet Vol. 10.4 fl (6.2-12.0); Platelet Count 163 K/mm3 (150-450); RBC Distribution Width CV 14.8 % (11.6-14.6); RBC Distribution Width SD 52.3 fl (35.1-43.9); Red Blood Count 3.65 M/mm3 (4.6-6.2); White Blood Count 7.2 K/mm3 (4.4-11.0)
[2019-03-02 09:00] VITALS: BP 148/83; PULSE 75; RESP 16; TEMP 37; O2SAT 96
--- NOTE | 2019-03-02 10:32 | PCM.PN.ID ---
Patient Problems: Active and Suspected Problems Bacteremia due to Gram-negative bacteria (Acute) Cellulitis of arm, left (Acute) Subjective: Feeling better, arm less sore and swollen. No fever, no n/v/d. - Physical Exam General: Alert, Cooperative, No apparent distress Lungs: Clear to auscultation, Normal air movement Cardiovascular: Regular rate, Regular Rhythm Abdomen: Soft, Non Tender, Non-Distended Skin: Ulcer/ Wound - L forearm less red and swollen Vital Signs Temp Pulse Resp BP Pulse Ox 99.9 F H 67 16 119/59 L 94 03/02/19 02:16 03/02/19 02:16 03/02/19 02:16 03/02/19 02:16 03/02/19 02:16 Oxygen Delivery Method Room Air Weight: 83.915 kg Body Mass Index (BMI) 27.3 Intake and Output for Last 24 Hours 02/28/19 03/01/19 03/02/19 23:59 23:59 23:59 Intake Total 1202.92 / 1452.92 1525.83 / 1525.83 565.83 / 565.83 Balance 1202.92 / 1452.92 1525.83 / 1525.83 565.83 / 565.83 Microbiology Past 72 Hours 02/28/19 15:49 Blood Culture - Preliminary Blood Culture (Wb) - Right Hand Gram negative lizbet 02/28/19 15:44 Blood Culture - Preliminary Blood Culture (Wb) - Anticubital Right Gram negative lizbet Laboratory Tests Past 24 Hrs 02/28/19 03/02/19 03/02/19 15:44 05:14 08:30 WBC 7.2 RBC 3.65 L Hgb 11.1 L Hct 34.6 L MCV 94.8 H MCH 30.4 MCHC 32.1 RDW Std Deviation 52.3 H RDW Coeff of So 14.8 H Plt Count 163 MPV 10.4 Diff Path Review Reviewed S.aureus Protein A PCR Pending MRSA (PCR) Pending Medical Necessity - Tobacco Use Smoking Status: Former smoker Tobacco Use: Cigarettes Route of nutrition/ use of supplements: [] Nutritional Intake: [] IV Site: [] Valentino Catheter: [] - Assessment/Plan Antibiotics: [] Assessment/Plan: [] Active and Suspected Problems Cellulitis of arm, left (Acute) sepsis due to GNR bacteremia from LUE infection - cont zosyn. Wbc and fever improved. Arm feeling better. Will follow
[2019-03-02] MEDS: Heparin Injection (Vial) 5,000 UNIT/ML VIAL 5000 UNIT SC ×2 (10:37→22:25)
[2019-03-02] MEDS: Losartan Potassium 100 MG Tablet PO (10:37)
[2019-03-02] MEDS: Tamsulosin HCl 0.4 MG Capsule PO (10:37)
[2019-03-02] MEDS: Acyclovir 200 MG Capsule PO ×2 (10:38→22:31)
[2019-03-02 10:39] LABS: M R Staph aureus DNA By PCR Negative (Negative); Probe Check PASS; Specimen Processing Control PASS; Staph aureus DNA By PCR NEGATIVE (Negative)
[2019-03-02] MEDS: Finasteride 5 MG Tablet PO (10:39)
--- NOTE | 2019-03-02 14:12 | PCM.PROGNOTE ---
<Jose Edgar - Last Filed: 03/02/19 14:12> Patient Problems: Active and Suspected Problems Bacteremia due to Gram-negative bacteria (Acute) Cellulitis of arm, left (Acute) Subjective: Pt overall improving. Feels some fatigue. Denies chills/sweats. Fever 100.9 yesterday afternoon. + Blood cultures. Pt fell and his watch drove into his skin. No cough/sob. No N/V/D. No MAYERS/dizziness/LH. - Physical Exam General: Alert, Oriented x3, Cooperative HEENT: Atraumatic, PERRLA, EOMI, Normocephalic Neck: Supple, No JVD, Negative Carotid Bruits Lungs: Clear to auscultation, Normal air movement Cardiovascular: Regular rate, No murmurs Abdomen: Bowel Sounds Present, Soft, Non Tender Extremities: No edema, Capillary Refill Less than 3 Seconds Skin: No rashes, No breakdown, - - erythema improved. Swelling decreased. no purulent drainage. Musculoskeletal: No Tenderness to Palpation of Joints or Extremities Neurological: Cranial nerves II-XII grossly intact Psych/Mental Status: Normal Affect, Appropriate, Alert and oriented to time, place, person, mood and affect Vital Signs Temp Pulse Resp BP Pulse Ox 98.6 F 75 16 148/83 H 96 03/02/19 09:00 03/02/19 09:00 03/02/19 09:00 03/02/19 09:00 03/02/19 09:00 Oxygen Delivery Method Room Air Weight: 185 lb 0.014 oz Body Mass Index (BMI) 27.3 Intake and Output for Last 24 Hours 02/28/19 03/01/19 03/02/19 23:59 23:59 23:59 Intake Total 1202.92 / 1452.92 1525.83 / 1525.83 617.08 / 617.08 Balance 1202.92 / 1452.92 1525.83 / 1525.83 617.08 / 617.08 Microbiology Past 72 Hours 03/02/19 08:30 Gram Stain - Final Wound - Wrist 02/28/19 15:49 Blood Culture - Preliminary Blood Culture (Wb) - Right Hand Gram negative lizbet 02/28/19 15:44 Blood Culture - Preliminary Blood Culture (Wb) - Anticubital Right Gram negative lizbet Laboratory Tests Past 24 Hrs 03/02/19 03/02/19 05:14 08:30 WBC 7.2 RBC 3.65 L Hgb 11.1 L Hct 34.6 L MCV 94.8 H MCH 30.4 MCHC 32.1 RDW Std Deviation 52.3 H RDW Coeff of So 14.8 H Plt Count 163 MPV 10.4 S.aureus Protein A PCR NEGATIVE MRSA (PCR) Negative Medical Necessity - Tobacco Use Smoking Status: Former smoker Tobacco Use: Cigarettes Assessment/Plan All Active Problems Bacteremia due to Gram-negative bacteria (Acute) Cellulitis of arm, left (Acute) 1. Sepsis, Bacteremia, cellulitis LLE - GNR on BlCx x2. ID following. Continue Zosyn. Repeat blood cultures today. Wound culture sent. MSSA/MRSA screen negative. Leukocytosis resolved. Wound care following. 2. AWILDA 2/2 sepsis - resolved. 3. Mechanical fall leading to injury - PTOT 4. Hx Lymphoma - pt of Dr. Barraza. 5. HTN - stable 6. BPH - flomax DVT ppx: heparin DC planning: PTOT. likely home no needs. plan to f/u wound center This patient was seen by Jose Edgar PA-C under the supervision of Dr. Bacon. <Cele Bacon E - Last Filed: 03/02/19 14:24> - Physical Exam Vital Signs Temp Pulse Resp BP Pulse Ox 98.6 F 75 16 148/83 H 96 03/02/19 09:00 03/02/19 09:00 03/02/19 09:00 03/02/19 09:00 03/02/19 09:00 Oxygen Delivery Method Room Air Weight: 185 lb 0.014 oz Body Mass Index (BMI) 27.3 Intake and Output for Last 24 Hours 02/28/19 03/01/19 03/02/19 23:59 23:59 23:59 Intake Total 1202.92 / 1452.92 1525.83 / 1525.83 617.08 / 617.08 Balance 1202.92 / 1452.92 1525.83 / 1525.83 617.08 / 617.08 Microbiology Past 72 Hours 03/02/19 08:30 Gram Stain - Final Wound - Wrist 02/28/19 15:49 Blood Culture - Preliminary Blood Culture (Wb) - Right Hand Gram negative lizbet 02/28/19 15:44 Blood Culture - Preliminary Blood Culture (Wb) - Anticubital Right Gram negative lizbet Laboratory Tests Past 24 Hrs 03/02/19 03/02/19 05:14 08:30 WBC 7.2 RBC 3.65 L Hgb 11.1 L Hct 34.6 L MCV 94.8 H MCH 30.4 MCHC 32.1 RDW Std Deviation 52.3 H RDW Coeff of So 14.8 H Plt Count 163 MPV 10.4 S.aureus Protein A PCR NEGATIVE MRSA (PCR) Negative Assessment/Plan Hospitalist note: I am seeing this patient in conjunction with Jose Edgar. I independently seen and examined the patient. Progress note above and laboratory data reviewed and I concur with the above treatment plan. Left hand and forearm swelling and erythema is improving, denies any pain. He has been having spikes of low-grade fever, other vital signs are stable. - Physical Exam General: Alert, Oriented x3, Cooperative, No apparent distress. HEENT: Atraumatic, PERRLA, EOMI. Neck: Supple, No JVD, Negative Carotid Bruits, Trachea Midline, Thyroid Normal. Lungs: Clear to auscultation, Normal air movement, No rhonchi, No wheeze, No rales. Cardiovascular: Regular rate, Regular Rhythm, Normal S1, Normal S2, PMI Normal. Abdomen: Bowel Sounds Present, Soft, Non Tender, Non-Distended, No Hepato-splenomegaly. Extremities: No clubbing, No cyanosis, No edema. Left forearm: Swelling and erythema around mid left forearm extending down to the left wrist, hot to palpation, improving. Skin: No rashes, No breakdown Neurological: Cranial nerves are intact, neuro grossly intact Vital Signs are stable. Assessment and plan: #1 acute left forearm/wrist cellulitis/sepsis: Remained on IV Zosyn. Maximum temperature overnight was 100.9 Fahrenheit, other vital signs are stable. White blood cell count is back to normal. Blood culture revealed gram-negative rods on 2 bottles. Infectious disease on the case. Plan to continue same treatment. #2 gram-negative bacteremia: Probable source is the left forearm cellulitis as patient had a skin abrasion and then he started having cellulitis. He is on IV Zosyn as above, infectious disease consulted. Plan to repeat blood culture. #3 acute kidney injury: Secondary to infection and sepsis. On admission, creatinine 1.52, came down to 1.2 today, improved. #4 other chronic medical problems: Stable, continue current medications as above. This note was generated with [employer] dictation software. It may contain incorrect words, spelling, and punctuation that were not noted in checking the note before signing. Code Visit Inpatient E&M: 13999 Subs Hosp L2
--- NOTE | 2019-03-02 14:58 | CHAPLAIN ---
Type of Pastoral Visit _x__ Initial Visit ___ Follow-up Visit ___ On-call Visit ___ General Patient Visit ___ Spiritual Assessment ___ Family Conference ___ Bereavement ___ Rapid Response ___ Code Blue ___ Other (describe below) Pastoral Care Referral From _x__ Patient ___ Family ___ Nurse ___ Physician ___ Clinical Nutritionist ___ Shoe Repair Supervisor ___ Other (describe below) Sacrament/Intervention _x__ Active listening ___ Anointing ___ Buddhist ___ Bereavement ___ Communion _x__ Awa exploration ___ _x__ Life review _x__ Prayer ___ Reconciliation ___ Sacrament of Sick _x__ Supportive presence ___ Wedding ___ Other (describe below) Pastoral Comments patient discussed his congregation situation and hopes/regrets;
[2019-03-02 15:00] VITALS: BP 124/71; PULSE 78; RESP 18; TEMP 36.8; O2SAT 96
[2019-03-02 21:00] VITALS: BP 137/82; PULSE 85; RESP 16; TEMP 37.6; O2SAT 92
[2019-03-03 02:48] VITALS: BP 127/63; PULSE 66; RESP 16; TEMP 37.2; O2SAT 94
[2019-03-03 07:40] LABS: Absolute Lymphocyte Count 0.87 X10^3/uL (0.83-4.51); Basophil# 0.03 X10^3/uL; Basophil% 0.6 % (0-1); Eosinophil# 0.21 X10^3/uL; Eosinophils% 4.4 % (0-5); Hematocrit 37.9 % (40-54); Hemoglobin 11.9 g/dL (13.0-16.5); Lymphocyte # 0.87 X10^3/ul (4.0); Lymphocyte % 18.4 % (19-41); Mean Corp Hgb Conc 31.4 g/dL (32-36); Mean Corpuscular Volume 95.5 fL (80-94); Mean Platelet Vol. 10.9 fl (6.2-12.0); Monocyte# 0.65 X10^3/uL; Monocyte% 13.7 % (0-10); NRBC Flagged by Analyzer 0 % (0-5); Neutrophil # 2.95 X10^3/uL (2.7-7.7); Neutrophil % 62.5 % (47-70); Platelet Count 236 K/mm3 (150-450); RBC Distribution Width CV 14.6 % (11.6-14.6); RBC Distribution Width SD 52.2 fl (35.1-43.9); Red Blood Count 3.97 M/mm3 (4.6-6.2); White Blood Count 4.7 K/mm3 (4.4-11.0)
[2019-03-03 07:51] LABS: Anion Gap 8 (5-15); BUN 20 mg/dL (7-18); BUN/Creat Ratio 16.5 RATIO (10-20); Calcium,Total 8.9 mg/dL (8.5-10.1); Chloride 110 mmol/L (98-107); Creatinine, Serum 1.21 mg/dL (0.70-1.30); EST Glomerular Filtration Rate 61 mL/min (>60); Est Glom Filt Rate - Afr Amer 74 mL/min (>60); Estimated Creatinine Clearance 47.88 ml/min; Glucose 83 mg/dL (74-106); Potassium 3.9 mmol/L (3.5-5.1); Sodium Level 142 mmol/L (136-145)
[2019-03-03 08:00] VITALS: PULSE 68; RESP 14; O2SAT 95
[2019-03-03 08:17] VITALS: BP 136/88; PULSE 68; RESP 14; TEMP 36.6; O2SAT 95
[2019-03-03] MEDS: Tamsulosin HCl 0.4 MG Capsule PO (08:27)
[2019-03-03] MEDS: Losartan Potassium 100 MG Tablet PO (10:08)
[2019-03-03] MEDS: Heparin Injection (Vial) 5,000 UNIT/ML VIAL 5000 UNIT SC (10:10)
[2019-03-03] MEDS: Finasteride 5 MG Tablet PO (10:11)
[2019-03-03] MEDS: Acyclovir 200 MG Capsule PO (10:12)
--- NOTE | 2019-03-03 10:54 | DCINST_ITS ---
- Discharge Diagnoses Current Active Problems: Current Active and Chronic Problems Bacteremia due to Gram-negative bacteria (Acute) Benign prostatic hyperplasia (Chronic) Hypertension (Chronic) Lymphoma (Chronic) Cellulitis of arm, left (Acute) You will use the following diet at home:: Cardiac Your food should be the consistency of: Regular Your liquids should be the consistency of: Regular/Thin Discharge Activity: Return to Normal Activity Allergies/Adverse Reactions: Allergies No Known Allergies Allergy (Verified 10/22/13 17:38) Medications to take at Discharge Acyclovir [Zovirax] 200 po.syringe PO BID 02/28/19 Cholecalciferol (Vitamin D3) [Vitamin D3] 2,000 unit PO DAILY 02/28/19 Dexamethasone 20 mg PO PRN PRN 02/28/19 Finasteride 5 mg PO DAILY 02/28/19 Furosemide [Lasix] 40 mg PO DAILY 02/28/19 Losartan Potassium 100 mg PO DAILY 02/28/19 Melatonin 10 mg PO QHS PRN PRN 02/28/19 Tamsulosin HCl 0.4 mg PO DAILY 02/28/19 Acetaminophen [Tylenol Tablet] 650 mg PO Q6H PRN PRN tablet 03/03/19 Ciprofloxacin [Cipro] 500 mg PO BID #20 tab 03/03/19 The following prescriptions were given: Ciprofloxacin [Cipro] 500 mg PO BID #20 tab Transmission Status: Pending to [facility] Primary Care Physician: Jessica Collins NP-C [Primary Care Provider] - Please follow up with your Primary Care Physician in: 1-2 weeks Test Results: Test results from this visit will be discussed in further detail at your follow- up appointment, if applicable. Proposed Discharge Date: 03/03/19
--- NOTE | 2019-03-03 11:10 | PN.ID_ITS ---
Patient Problems: Active and Suspected Problems Bacteremia due to Gram-negative bacteria (Acute) Cellulitis of arm, left (Acute) Subjective: Feeling good, no fever, wrist much less sore - Physical Exam General: Alert, Cooperative, No apparent distress Lungs: Clear to auscultation, Normal air movement Cardiovascular: Regular rate, Regular Rhythm Abdomen: Soft, Non Tender, Non-Distended Skin: Ulcer/ Wound - much improved L wrist pain and swelling and redness Vital Signs Temp Pulse Resp BP Pulse Ox 98 F 68 14 136/88 H 95 03/03/19 08:17 03/03/19 08:17 03/03/19 08:17 03/03/19 08:17 03/03/19 08:17 Oxygen Delivery Method Room Air Weight: 83.915 kg Body Mass Index (BMI) 27.3 Intake and Output for Last 24 Hours 03/01/19 03/02/19 03/03/19 23:59 23:59 23:59 Intake Total 1525.83 / 1525.83 929.58 / 929.58 450 / 450 Balance 1525.83 / 1525.83 929.58 / 929.58 450 / 450 Microbiology Past 72 Hours 02/28/19 15:49 Blood Culture - Final Blood Culture (Wb) - Right Hand Gram negative lizbet 02/28/19 15:44 Blood Culture - Final Blood Culture (Wb) - Anticubital Right Enterobacter cloacae complex 03/02/19 08:30 Gram Stain - Final Wound - Wrist Laboratory Tests Past 24 Hrs 03/03/19 03/03/19 06:08 06:08 WBC 4.7 RBC 3.97 L Hgb 11.9 L Hct 37.9 L MCV 95.5 H MCH 30.0 MCHC 31.4 L RDW Std Deviation 52.2 H RDW Coeff of So 14.6 Plt Count 236 MPV 10.9 Immature Gran % (Auto) 0.400 Neut % (Auto) 62.5 Lymph % (Auto) 18.4 L [place] % (Auto) 13.7 H Eos % (Auto) 4.4 Baso % (Auto) 0.6 Absolute Neuts (auto) 3.0 Absolute Lymphs (auto) 0.87 Nucleated RBC % 0 Sodium 142 Potassium 3.9 Chloride 110 H Carbon Dioxide 24.0 Anion Gap 8 BUN 20 H Creatinine 1.21 Estim Creat Clear Calc 47.88 Est GFR (MDRD) Af Amer 74 Est GFR (MDRD) Non-Af 61 BUN/Creatinine Ratio 16.5 Glucose 83 Calcium 8.9 Medical Necessity - Tobacco Use Smoking Status: Former smoker Tobacco Use: Cigarettes Route of nutrition/ use of supplements: [] Nutritional Intake: [] IV Site: [] Valentino Catheter: [] - Assessment/Plan Antibiotics: [] Assessment/Plan: [] Active and Suspected Problems Cellulitis of arm, left (Acute) sepsis due to enterobacter bacteremia from LUE infection - On zosyn. Wbc and fever improved. Arm feeling better. Ok for d/c home on cipro for 7-10 more days. Will follow. ID followup prn, d/w primary team.
--- NOTE | 2019-03-03 13:00 | DS.PCM_ITS ---
<Jose Edgar - Last Filed: 03/03/19 13:00> Discharge Date and Diagnosis Date of Admission: 02/28/19 Date of Discharge: 03/03/19 - Primary Discharge Diagnosis Active and Suspected Problems Bacteremia due to Enterococcus cloacae Cellulitis of arm, left (Acute) AWILDA 2/2 sepsis Lymphoma HTN BPH - Secondary Discharge Diagnosis Chronic Problems Benign prostatic hyperplasia (Chronic) Hypertension (Chronic) Lymphoma (Chronic) Hospital Course and Treatment Imaging Results: IMAGING: RAD/Wrist min 3 Views IMPRESSION: 1. Degenerative changes without evidence of acute fracture, dislocation or destructive osseous pathology. 2. Diffuse soft tissue swelling over the wrist and base of the hand. 3. Generalized osteopenia. 4. Healed fracture of the third metacarpal. Consultations 02/28/19 17:16 Consult: Onc/Wound/staffing account manager Routine Comment: Reason for Consult:: Left wrist wound Operations: None Procedures: None Summary of Care Provided: Hospital Course: The patient is a 83 year old M with pmhx of lymphoma, htn, and bph, who presented to the ER with c/o right hand redness and swelling. This occurred after a mechanical fall onto his wrist. He was wearing a watch it dug into his skin leaving a wound. After this it became red and swollen surrounding the wound, and with erythema spreading up the arm. His hand became swollen and his ROM was limited. In the ER he had fever and leukocytosis. He was given vanc and rocephin initially and transitioned to cefazolin and vancomycin. He was admitted to the med surge unit. His blood cultures were positive with Enterococcus cloacae, which was resistant to cefazolin. Wound culture also shows GNR at this time. Xray did not suggest underlying osteomyelitis. ID was consulted. Repeat cultures were drawn. MRSA/MSSA screen was negative. His fever/leukocytosis/and AWILDA resolved. His erythema, swelling, and ROM responded very well to abx. He was transitioned to PO cipro. As he has had 4 days of therapy here, he will have 10 more days of cipro. He was discharged home in stable condition. He will need to follow up with his PCP in 1-2 weeks. Repeat blood culture is pending at this time. This patient was seen by Jose Edagr PA-C under the supervision of Dr. Bacon. [] - Physical Exam General: Alert, Oriented x3, Cooperative HEENT: Atraumatic, PERRLA, EOMI, Normocephalic Neck: Supple, No JVD, Negative Carotid Bruits Lungs: Clear to auscultation, Normal air movement Cardiovascular: Regular rate, No murmurs Abdomen: Bowel Sounds Present, Soft, Non Tender Extremities: No edema, Capillary Refill Less than 3 Seconds, - - ROM improved. erythema improved. nontender today. Skin: No rashes, No breakdown Musculoskeletal: No Tenderness to Palpation of Joints or Extremities Neurological: Cranial nerves II-XII grossly intact Psych/Mental Status: Normal Affect, Appropriate, Alert and oriented to time, place, person, mood and affect Vital Signs Temp Pulse Resp BP Pulse Ox 98 F 68 14 136/88 H 95 03/03/19 08:17 03/03/19 08:17 03/03/19 08:17 03/03/19 08:17 03/03/19 08:17 Oxygen Delivery Method Room Air Weight: 185 lb 0.014 oz Body Mass Index (BMI) 27.3 Intake and Output for Last 24 Hours 03/01/19 03/02/19 03/03/19 23:59 23:59 23:59 Intake Total 1525.83 / 1525.83 929.58 / 929.58 1000 / 1000 Balance 1525.83 / 1525.83 929.58 / 929.58 1000 / 1000 Microbiology Past 72 Hours 03/02/19 08:30 Gram Stain - Final Wound - Wrist Wound Culture - Preliminary Gram negative lizbet 02/28/19 15:49 Blood Culture - Final Blood Culture (Wb) - Right Hand Gram negative lizbet 02/28/19 15:44 Blood Culture - Final Blood Culture (Wb) - Anticubital Right Enterobacter cloacae complex Laboratory Tests Past 24 Hrs 03/03/19 03/03/19 06:08 06:08 WBC 4.7 RBC 3.97 L Hgb 11.9 L Hct 37.9 L MCV 95.5 H MCH 30.0 MCHC 31.4 L RDW Std Deviation 52.2 H RDW Coeff of So 14.6 Plt Count 236 MPV 10.9 Immature Gran % (Auto) 0.400 Neut % (Auto) 62.5 Lymph % (Auto) 18.4 L [place] % (Auto) 13.7 H Eos % (Auto) 4.4 Baso % (Auto) 0.6 Absolute Neuts (auto) 3.0 Absolute Lymphs (auto) 0.87 Nucleated RBC % 0 Sodium 142 Potassium 3.9 Chloride 110 H Carbon Dioxide 24.0 Anion Gap 8 BUN 20 H Creatinine 1.21 Estim Creat Clear Calc 47.88 Est GFR (MDRD) Af Amer 74 Est GFR (MDRD) Non-Af 61 BUN/Creatinine Ratio 16.5 Glucose 83 Calcium 8.9 Discharge Diet: Low fat/ Low Cholesterol, 2000 mg Sodium Diet Discharge Activity: Return to Normal Activity Home Medications: Medications to take at Discharge Acyclovir [Zovirax] 200 po.syringe PO BID 02/28/19 Cholecalciferol (Vitamin D3) [Vitamin D3] 2,000 unit PO DAILY 02/28/19 Dexamethasone 20 mg PO PRN PRN 02/28/19 Finasteride 5 mg PO DAILY 02/28/19 Furosemide [Lasix] 40 mg PO DAILY 02/28/19 Losartan Potassium 100 mg PO DAILY 02/28/19 Melatonin 10 mg PO QHS PRN PRN 02/28/19 Tamsulosin HCl 0.4 mg PO DAILY 02/28/19 Acetaminophen [Tylenol Tablet] 650 mg PO Q6H PRN PRN tab 03/03/19 Ciprofloxacin [Cipro] 500 mg PO BID #20 tab 03/03/19 Following Prescrptions Were Given to Patient: Ciprofloxacin [Cipro] 500 mg PO BID #20 tab Transmission Status: Received by [email or web address][id number] Primary Care Physician: Jessica Collins NP-C [Primary Care Provider] - Please follow up with your Primary Care Physician in: 1-2 weeks Disposition: Home Minutes spent on discharge:: 35 Patient Condition:: Stable Medical Necessity - Tobacco Use Smoking Status: Former smoker Tobacco Use: Cigarettes Meaningful Use Info Meaningful Use Diagnoses (Choose all that apply): None applicable <Cele Bacon E - Last Filed: 03/03/19 14:49> Discharge Date and Diagnosis - Secondary Discharge Diagnosis Chronic Problems Benign prostatic hyperplasia (Chronic) Hypertension (Chronic) Lymphoma (Chronic) Hospital Course and Treatment Consultations 02/28/19 17:16 Consult: Onc/Wound/staffing account manager Routine Comment: Reason for Consult:: Left wrist wound Summary of Care Provided: Hospitalist note: Discharge summary above reviewed and I concur with the above discharge and treatment plan. Patient admitted for left forearm swelling and erythema after patient had skin abrasion due to mechanical fall few days before this presentation. He was found to have acute left forearm cellulitis with sepsis. X-ray of the left wrist revealed soft tissue swelling without evidence of acute fractures, revealed healed fracture of the third metacarpal. Patient was treated with IV Zosyn. He did have fever during this hospital stay and his white blood cell count was elevated but with IV antibiotic therapy, and return back to normal. His blood culture revealed gram-negative rods consistent with bacteremia and source is the left forearm cellulitis. With IV Zosyn, swelling and erythema of the left forearm improved. Patient remained afebrile for 24 hours and his white blood cell count returned back to normal. Repeat blood culture was done and was negative up to the time of discharge and finding was pending. Infectious disease consulted and recommended to continue IV Zosyn while in the hospital. Patient discharged home in a stable medical condition, discharged on ciprofloxacin 500 mg p.o. twice daily for 10 days of treatment to complete total of 14 days of treatment, recommended from with PCP in 1 to 2 weeks. - Physical Exam General: Alert, Oriented x3, Cooperative, No apparent distress. HEENT: Atraumatic, PERRLA, EOMI. Neck: Supple, No JVD, Negative Carotid Bruits, Trachea Midline, Thyroid Normal. Lungs: Clear to auscultation, Normal air movement, No rhonchi, No wheeze, No rales. Cardiovascular: Regular rate, Regular Rhythm, Normal S1, Normal S2, PMI Normal. Abdomen: Bowel Sounds Present, Soft, Non Tender, Non-Distended, No Hepato- splenomegaly. Extremities: No clubbing, No cyanosis, No edema. Erythema and swelling of the right forearm improved. Skin: No rashes, No breakdown Neurological: Neuro grossly intact Vital Signs are stable. This note was generated with [employer] dictation software. It may contain incorrect words, spelling, and punctuation that were not noted in checking the note before signing. - Physical Exam Vital Signs Temp Pulse Resp BP Pulse Ox 98.5 F 72 16 139/73 H 93 03/03/19 14:01 03/03/19 14:01 03/03/19 14:01 03/03/19 14:01 03/03/19 14:01 Oxygen Delivery Method Room Air Weight: 185 lb 0.014 oz Body Mass Index (BMI) 27.3 Intake and Output for Last 24 Hours 03/01/19 03/02/19 03/03/19 23:59 23:59 23:59 Intake Total 1525.83 / 1525.83 929.58 / 929.58 1000 / 1000 Balance 1525.83 / 1525.83 929.58 / 929.58 1000 / 1000 Microbiology Past 72 Hours 03/02/19 08:30 Gram Stain - Final Wound - Wrist Wound Culture - Preliminary Gram negative lizbet 02/28/19 15:49 Blood Culture - Final Blood Culture (Wb) - Right Hand Gram negative lizbet 02/28/19 15:44 Blood Culture - Final Blood Culture (Wb) - Anticubital Right Enterobacter cloacae complex Laboratory Tests Past 24 Hrs 03/03/19 03/03/19 06:08 06:08 WBC 4.7 RBC 3.97 L Hgb 11.9 L Hct 37.9 L MCV 95.5 H MCH 30.0 MCHC 31.4 L RDW Std Deviation 52.2 H RDW Coeff of So 14.6 Plt Count 236 MPV 10.9 Immature Gran % (Auto) 0.400 Neut % (Auto) 62.5 Lymph % (Auto) 18.4 L [place] % (Auto) 13.7 H Eos % (Auto) 4.4 Baso % (Auto) 0.6 Absolute Neuts (auto) 3.0 Absolute Lymphs (auto) 0.87 Nucleated RBC % 0 Sodium 142 Potassium 3.9 Chloride 110 H Carbon Dioxide 24.0 Anion Gap 8 BUN 20 H Creatinine 1.21 Estim Creat Clear Calc 47.88 Est GFR (MDRD) Af Amer 74 Est GFR (MDRD) Non-Af 61 BUN/Creatinine Ratio 16.5 Glucose 83 Calcium 8.9 Disposition: Home Minutes spent on discharge:: 32 Patient Condition:: Stable Meaningful Use Info Meaningful Use Diagnoses (Choose all that apply): None applicable Code Visit Inpatient E&M: 46959 Disch Hosp
[2019-03-03 14:01] VITALS: BP 139/73; PULSE 72; RESP 16; TEMP 36.9; O2SAT 93
--- NOTE | 2019-03-07 13:41 | CASEMGMT ---
Case Management DC F/u Call: DC Date: 03/03/19 DC Diagnosis: Bacteremia due to Enterococcus cloacae, Cellulitis of arm, left (Acute), AWILDA 2/2 sepsis, Lymphoma, HTN, BPH DC Disposition: Home LACE/Strata: 04/16 Called patient home number listed on Demographics, no answer and Voice Msg was not identifiable to patient. Therefore, no VM was left. SARA Daniels
== END 2019-03-03 14:25 | disposition home or self-care (01) | DRG 872 ==
LOC: ED 15:54 → MS3 17:00
PROVIDERS: Nurse Practitioner Family; Physician Assistant; Admitting Provider Family Medicine; Emergency Provider Emergency Medicine; Family Provider Nurse Practitioner; PCP Nurse Practitioner; Referring Provider Family Medicine; Visit Provider Hospitalist
DX: A41.59 Other Gram-negative sepsis (principal); L03.114 Cellulitis of left upper limb; C85.90 Non-Hodgkin lymphoma, unspecified, unspecified site; N17.9 Acute kidney failure, unspecified; B95.2 Enterococcus as the cause of diseases classified elsewhere; I10 Essential (primary) hypertension; N40.0 Benign prostatic hyperplasia without lower urinary tract symptoms; S60.812A Abrasion of left wrist, initial encounter; W18.30XA Fall on same level, unspecified, initial encounter; Z79.899 Other long term (current) drug therapy; Z87.891 Personal history of nicotine dependence
CPT/HCPCS: 36415; 73110; 80048; 80053; 83605; 85025; 85027; 85610; 87040; 87070; 87077; 87186; 87205; 87640; 97802; 99285; J7030; A4216

== ENCOUNTER 2020-01-17 15:33 | Emergency (ER) | payer MEDICARE, SELFPAY ==
[2020-01-17 15:35] VITALS: BP 146/65; PULSE 42; RESP 24; TEMP 36.8; O2SAT 94; BMI 31.8
[2020-01-17 15:43] VITALS: O2SAT 95
--- NOTE | 2020-01-17 16:08 | CT_ITS ---
STUDY: CT BRAIN WITHOUT CONTRAST REASON FOR EXAM: Male, 84 years old. FALL YESTERDAY, HEAD AND NECK PAIN RADIATION DOSAGE (If Supplied By Facility): CTDIvol = ( 44.99 ) mGy, DLP = ( 796.11 ) mGycm TECHNIQUE: Transaxial CT imaging of the brain was performed without administration of intravenous contrast material. Individualized dose optimization techniques were used for this CT. COMPARISON: No relevant priors. FINDINGS: Normal soft tissue structures. There is a fracture through the visualized C1 anterior arch right and midline. There is mild cerebral atrophy with widening of the extra-axial spaces and ventricular dilatation. There are areas of decreased attenuation within the white matter tracts of the supratentorial brain, consistent with microvascular disease changes. Normal basal ganglia and thalami. Normal brainstem. Normal cerebellum. There is no intracranial hemorrhage. There are no findings of an acute ischemic infarction. Normal visualized paranasal sinuses. CT/Brain/Head without Contrast IMPRESSION: Chronic involutional changes of the brain. Small vessel ischemia. Fracture of the visualized C1 anterior arch right of midline, please note there is a separate dedicated CT report of the cervical spine. Electronically Signed: Kait Simmons MD at 17:09 EDT Tel , Service support ,
--- NOTE | 2020-01-17 16:09 | EKG12_ITS ---
Test Reason : LEXX Blood Pressure : / mmHG Vent. Rate : 040 BPM Atrial Rate : 040 BPM P-R Int : 448 ms QRS Dur : 146 ms QT Int : 470 ms P-R-T Axes : 040 -08 003 degrees QTc Int : 383 ms Marked sinus bradycardia with 1st degree A-V block Right bundle branch block Inferior infarct , age undetermined Abnormal ECG Confirmed by JOCELYNN SIMMONS, RENEA ([id number]), finance effectiveness manager CHRISTA HUSSEIN ([id number]) on 01/22/2020 9:28:46 AM Referred By: NOLAN Confirmed By:MICHAEL CABEZAS MD
--- NOTE | 2020-01-17 16:10 | CT_ITS ---
STUDY: CT CERVICAL SPINE WITHOUT CONTRAST REASON FOR EXAM: Male, 84 years old. FALL YESTERDAY, HEAD AND NECK PAIN RADIATION DOSAGE (If Supplied By Facility): CTDIvol = ( 26.11 ) mGy, DLP = ( 598.31 ) mGycm TECHNIQUE: High resolution transaxial imaging was performed without contrast material. Sagittal and coronal images were reconstructed. Individualized dose optimization techniques were used for this CT. COMPARISON: None FINDINGS: There is a acute fracture through the anterior arch of C1 right midline. There are degenerative changes of the anterior atlantoaxial articulation. There is an indeterminate lucency within the odontoid extending through the medial lateral masses (image 8 series 601). There is multilevel facet hypertrophy. C2-3: Normal endplates. Normal disc height and morphology. Normal central canal and intervertebral neuroforamina. C3-4: There is a posterior disc osteophyte and facet hypertrophy associated with stenosis of the central canal and bilateral narrowing of the intervertebral neuroforamina. C4-5: There is a posterior disc osteophyte and facet hypertrophy associated with stenosis of the central canal and bilateral narrowing of the intervertebral neuroforamina. C5-6: There is a posterior disc osteophyte and facet hypertrophy associated with stenosis of the central canal and bilateral narrowing of the intervertebral neuroforamina. C6-7: There is a posterior disc osteophyte and facet hypertrophy associated with stenosis of the central canal and bilateral narrowing of the intervertebral neuroforamina. C7-T1: There is a posterior disc osteophyte and facet hypertrophy associated with bilateral narrowing of the intervertebral neuroforamina. There are prominent prevertebral soft tissues anterior to the odontoid. There are bilateral pleural effusions within the visualized lungs. CT/Spine Cervical without Contras IMPRESSION: C1 anterior arch fracture right of midline. Indeterminate lucency within the odontoid concerning for a type III fracture. Bilateral pleural effusions. Multilevel degenerative changes. Electronically Signed: Kait Simmons MD at 17:23 EDT Tel , Service support ,
--- NOTE | 2020-01-17 16:12 | ED.DCSUM_ITS ---
History of Present Illness Chief Complaint: Fall Informant: Patient, Family Onset: Yesterday Current Severity: Moderate Maximum Severity: Moderate Narrative: Patient presents with a fall that occurred late last night. He got up out of bed. states he told her that he was not quite awake yet and stood up quickly, falling to the ground. He did not lose consciousness. Today he is complaining of head and neck pain. He went to PCPs office where he was noted to be bradycardic and was sent to the ER by EMS. Patient's blood pressure is adequate with systolic pressures in the 140s. Heart rate is around 40. states patient was ill late last week. He had a Covid test as an outpatient that was negative. He had T-max of 101 and developed diarrhea last Wednesday. Symptoms resolved within 24 hours. His oncologist felt he likely had a URI and started him on Augmentin 2 days ago. - Past Medical History (1) Benign prostatic hyperplasia Status: Chronic (2) Hypertension Status: Chronic (3) Lymphoma Status: Chronic Past Medical History - Allergies and Home Meds Allergies/Adverse Reactions: Allergies No Known Allergies Allergy (Verified 01/17/20 15:40) Primary Care Physician: Jessica Collins NP-C [Primary Care Provider] - Prior records reviewed: Yes Surgical History: - - Back surgery Lives: Spouse/ Significant Other Smoking Status: Former smoker - Family History Paternal Family History: Reports: Cancer Review of Systems General: Reports: Fever - Resolved x4 days Eyes: Denies: Visual changes - bilaterally ENT: Denies: Bilateral ear pain Cardiovascular: Denies: Chest pain Respiratory: Denies: Dyspnea, Cough Gastrointestinal: Reports: Diarrhea - Resolved 4 days ago. Denies: Abdominal pain Musculoskeletal: Reports: Neck pain. Denies: Swelling, Extremity Pain Neurological: Reports: Headache Hematologic: Denies: Easy bruising, Easy bleeding Allergy: Denies: Uticaria Physical Exam Vital Signs/Narrative: Vital Signs Temp Pulse Resp BP Pulse Ox 01/17/20 15:43 95 01/17/20 15:35 98.2 F 42 L 24 H 146/65 H 94 Inital Vital Signs reviewed: Yes General: Well nourished, Well developed Head: Normocephalic ENT: Moist mucous membranes Neck: Supple Cardiovascular: Bradycardia Respiratory: No distress, CTA bilaterally Abdomen: Soft, Nontender, Normal bowel sounds Extremities: Nontender Skin: Normal color Neurological: Alert, Oriented x3 Psychological: Normal affect Diagnostic/Tx/Re-eval 01/17/20 16:08 Brain/Head without Contrast [CT] Stat 01/17/20 16:10 CT Cervical [Spine Cervical without Contras] [CT] Stat Laboratory Results 01/17/20 01/17/20 01/17/20 15:19 15:19 16:30 WBC 9.8 RBC 4.31 L Hgb 13.3 Hct 40.0 MCV 92.8 MCH 30.9 MCHC 33.3 RDW Std Deviation 49.8 H RDW Coeff of So 14.5 Plt Count 241 MPV 12.6 H Immature Gran % (Auto) 1.700 H Neut % (Auto) 70.2 H Lymph % (Auto) 7.1 L [place] % (Auto) 19.8 H Eos % (Auto) 0.7 Baso % (Auto) 0.5 Absolute Neuts (auto) 6.8 Absolute Lymphs (auto) 0.69 L Nucleated RBC % 0 Sodium 132 L Potassium 4.2 Chloride 99 Carbon Dioxide 28.0 Anion Gap 5 BUN 45 H Creatinine 1.72 H Estim Creat Clear Calc 33.11 Est GFR (MDRD) Af Amer 49 L Est GFR (MDRD) Non-Af 41 L BUN/Creatinine Ratio 26.2 H Glucose 98 Calcium 8.4 L Total Bilirubin 0.70 Direct Bilirubin 0.22 AST 50 H ALT 44 Alkaline Phosphatase 77 Troponin I 16.400 H* Total Protein 6.7 Albumin 2.6 L Globulin 4.1 Urine Color Yellow Urine Clarity Clear Urine pH 5.0 Ur Specific [place] 1.015 Urine Protein 15 H Urine Glucose (UA) Normal Urine Ketones Negative Urine Occult Blood Negative Urine Nitrite Negative Urine Bilirubin Negative Urine Urobilinogen Normal Ur Leukocyte Esterase Negative Urine RBC 0 SEEN Urine WBC 0 SEEN Ur Squamous Epith Cells 0 SEEN Urine Bacteria 0 SEEN Urine Mucus 0 SEEN - EKG Initial EKG Interpretation: Sinus Bradycardia - Sinus bradycardia at [address] elevation is noted in the inferior leads, however Q waves are already noted. There are no old studies available for comparison. Right bundle branch block is noted. - Medical Decision Making Patient was sent for a head and neck CT. I was called from CT that patient had evidence of an anterior C1 fracture. I went to the CT scanner and placed a c- collar on the patient. Patient was carefully moved back to the bed. Test results are discussed with and she would prefer [facility] for transfer. - Critical Care Time Critical care time (excluding procedures): 30-74 minutes ED Disposition - Plan for ED Patient: Disposition: [facility] Diagnosis: C1 cervical fracture, Myocardial infarction, Bradycardia Referrals: Jessica Collins, PRODUCTION PLANNING MANAGER-C [Primary Care Provider] -
--- NOTE | 2020-01-17 16:16 | NURSING ---
NO OLD EKGS
[2020-01-17] MEDS: 0.9% Normal Saline 1,000 ML 150 ML IV (16:17)
[2020-01-17 16:31] LABS: Absolute Lymphocyte Count 0.69 X10^3/uL (0.83-4.51); Absolute Neutrophil Count 6.8 X10^3/uL (2.0-7.7); Basophil# 0.05 X10^3/uL; Basophil% 0.5 % (0-1); Eosinophil# 0.07 X10^3/uL; Eosinophils% 0.7 % (0-5); Hemoglobin 13.3 g/dL (13.0-16.5); Lymphocyte # 0.69 X10^3/ul (4.0); Lymphocyte % 7.1 % (19-41); Mean Corp Hgb Conc 33.3 g/dL (32-36); Mean Corpuscular Hgb 30.9 pg (27.0-32.0); Mean Corpuscular Volume 92.8 fL (80-94); Mean Platelet Vol. 12.6 fl (6.2-12.0); Monocyte# 1.93 X10^3/uL; Monocyte% 19.8 % (0-10); NRBC Flagged by Analyzer 0 % (0-5); Neutrophil # 6.84 X10^3/uL (2.7-7.7); Neutrophil % 70.2 % (47-70); POSITIVE DIFFERENTIAL YES; Platelet Count 241 K/mm3 (150-450); RBC Distribution Width CV 14.5 % (11.6-14.6); RBC Distribution Width SD 49.8 fl (35.1-43.9); Red Blood Count 4.31 M/mm3 (4.6-6.2); White Blood Count 9.8 K/mm3 (4.4-11.0)
[2020-01-17 16:36] LABS: Bacteria 0 SEEN /hpf (None Seen); Mucous, Urine 0 SEEN /hpf (<or=2+); Red Blood Cells-Urine 0 SEEN /hpf (0-5); Squamous Epithelial Cells - UA 0 SEEN /hpf (0-5); White Blood Cells 0 SEEN /hpf (0-5)
[2020-01-17 16:42] LABS: Differential Indicated SCAN CRITERIA MET
[2020-01-17 16:48] LABS: Color, Urine Yellow (Yellow); Glucose, Dipstick Normal (Normal); Ketone-Dipstick Negative (Negative); Leukocyte Esterase-Dipstick Negative /ul (Negative); Nitrite-Dipstick Negative (Negative); Occult Blood-Urine Negative /ul (Negative); Protein-Dipstick 15 mg/dl (Negative); Specific Gravity, Urine 1.015 (1.002-1.030); Urine Bilirubin Dipstick Negative (Negative); Urine Clarity Clear (Clear); Urine Urobilinogen Normal (Normal)
[2020-01-17 16:51] LABS: AST(SGOT) 50 U/L (15-37); Alanine Aminotransfer ALT/SGPT 44 U/L (16-61); Albumin, Serum 2.6 g/dL (3.2-5.0); Alkaline Phosphatase 77 U/L (45-117); Anion Gap 5 (5-15); BUN 45 mg/dL (7-18); BUN/Creat Ratio 26.2 RATIO (10-20); Bilirubin, Direct 0.22 mg/dL (0.00-0.30); Calcium,Total 8.4 mg/dL (8.5-10.1); Chloride 99 mmol/L (98-107); Creatinine, Serum 1.72 mg/dL (0.70-1.30); EST Glomerular Filtration Rate 41 mL/min (>60); Est Glom Filt Rate - Afr Amer 49 mL/min (>60); Estimated Creatinine Clearance 33.11 ml/min; Globulin 4.1 g/dL (2.2-4.2); Glucose 98 mg/dL (74-106); Potassium 4.2 mmol/L (3.5-5.1); Protein, Total 6.7 g/dL (6.4-8.2); Sodium Level 132 mmol/L (136-145)
[2020-01-17 17:06] VITALS: BP 138/64; PULSE 41; RESP 23; O2SAT 92
[2020-01-17 17:06] LABS: Platelet Estimate ADEQUATE (ADEQ); Red Cell Morphology NORM C+C NORMAL (NORM C&C)
--- NOTE | 2020-01-17 17:17 | NURSING ---
CALLED PHYSICANS FOR TRANSPORT TO [facility].
== END 2020-01-17 17:47 | disposition short-term general hospital (02) ==
PROVIDERS: Emergency Provider Emergency Medicine; PCP Nurse Practitioner
DX: S12.090A Other displaced fracture of first cervical vertebra, initial encounter for closed fracture (principal); W18.39XA Other fall on same level, initial encounter; Y93.89 Activity, other specified; Y92.009 Unspecified place in unspecified non-institutional (private) residence as the place of occurrence of the external cause; I21.9 Acute myocardial infarction, unspecified; R00.1 Bradycardia, unspecified; I10 Essential (primary) hypertension; N40.0 Benign prostatic hyperplasia without lower urinary tract symptoms; Z79.899 Other long term (current) drug therapy; Z87.891 Personal history of nicotine dependence
CPT/HCPCS: 70450; 72125; 80048; 80076; 81001; 84484; 85025; 93005; 96360; 96361; 99285; J7030; A4216

== ENCOUNTER → 2020-03-22 12:50 | Outpatient (CLI) | payer MEDICARE, SELFPAY ==
--- NOTE | 2020-03-22 12:56 | CR.HP_ITS ---
CR - History & Physical - General Arrival date:: 03/22/20 Arrival time:: 13:01 Date of Referral:: 02/12/20 Date of CR Evaluation:: 03/22/20 Referring Physician: DR. JUDY JO MD @ [facility] - History of Present Cardiac Event Onset Date: Enter Onset Date of cardiac illnesses in Comment field below Current stable Angina Pectoris:: No Acute Myocardial Infarction within 12 months:: Yes - STEMI, MULTI VESSEL CORONARY DISEASE PTCA or coronary stenting:: Yes - 01/26/2020 X 3 STENTS - Medications Home Medications: Ambulatory Orders Medication Instructions Recorded Acyclovir [Zovirax] 200 po.syringe PO BID 02/28/19 Cholecalciferol (Vitamin D3) 2,000 unit PO DAILY 02/28/19 [Vitamin D3] Finasteride 5 mg PO DAILY 02/28/19 Furosemide [Lasix] 20 mg PO DAILY 02/28/19 Losartan Potassium 100 mg PO DAILY 02/28/19 Melatonin 10 mg PO QHS PRN PRN 02/28/19 Tamsulosin HCl 0.4 mg PO DAILY 02/28/19 Acetaminophen [Tylenol Tablet] 650 mg PO Q6H PRN PRN tab 03/03/19 Metoprolol Succinate 50 mg PO DAILY 01/17/20 Atorvastatin Calcium [Lipitor] 10 mg PO QHS 03/22/20 Ticagrelor [Brilinta] 90 mg PO BID 03/22/20 - Allergies Allergies/Adverse Reactions: Allergies No Known Allergies Allergy (Verified 01/17/20 15:40) - Sleep Disorder Evaluation Hx of Sleep Apnea: Yes Do you snore loudly (louder than talking or can be heard through closed doors)?: No Do you often feel tired/ fatigued/ sleepy during daytime?: Yes Has anyone observed you stop breathing during sleep?: No History of Hypertension (for STOP score): Yes STOP Results: Positive Advanced Directives - Advanced Directives Power of Slate Splitter: Yes Living Will: Yes Advance Directives Information Provided: No Advance Directives on File: No DNR Order?:: No - MOLST See MOLST form: No Past Medical History - Covid-19 Screening Fever: No Unexplained muscle aches: No Current respiratory symptoms: No Upper respiratory infections symptoms: No Gastro-intestinal symptoms: No Fpr-Wlpr-Hdwrbf symptoms: No Has tested positive for COVID-19 in last 30 days: No Had contact w/person w/symptoms or Covid-19 (+) last 14 days: No Has High Risk Exposures ID'd by Health dept/Inf Control team: No 65 years or older:: Yes Lives in Assisted Living facility:: No Has a chronic lung disease or moderate to severe asthma:: No Has a serious heart condition:: Yes Immunocompromised:: No Severely obese (Body Mass Index of 40 or higher):: No Diabetic:: No Has chronic kidney disease undergoing dialysis:: No - Past Medical Illness Medical History: Past Medical History (Last Updated 03/22/20 @ 13:10 by Lele Galeano, COLLECT ON DELIVERY CLERK, DIETARY SUPERVISOR, BS) Acute kidney failure N17.9 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 Hydronephrosis N13.30 Kidney lesion, [place], left N28.9 Lesion of left [place] kidney N28.9 Pleural effusion J90 Trauma T14.90XA C-1 CERVICAL FRACTURE [place] 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 Hypertension I10 - Past Surgical History Surgical History: - - Back surgery YEARS AGO, BIOPSY OF KIDNEY Social History - Smoking History Smoking Status: Never smoker - Alcohol Use Alcohol Usage: Yes - ONLY ON A SPECIAL OCCASION - Substance Abuse Hx Substance Use: No - Occupation Occupation (List type of work in comments):: Retired - Hobbies, Recreation, Social Activities Hobbies: Other - SHOW TRUCKS, Recreational Activities: I am able to engage in most, but not all activities Social Environment - Status Marital Status: - Current Living Arrangements Living Environment:: Spouse - Children How many children do you have?: 1 - SON SURVIVING Do any of your children live nearby?: Yes - Safety Do you feel safe in your surroundings?: Yes - Assistance Do you need any assistance at home?: NO Review of Systems - Review of Systems Hints: Right click = Denies ([place]). Left click = Reports ([place]) Review of Present Symptoms: Reports: Fatigue, Appetite - Normal - EATING LESS, TRYING TO WATCH PORTIONS TO CONTROL WEIGHT., Appetite - Special Diet - LOW SODIUM, LOW FAT CARDIAC DIET.. Denies: Shortness of Breath at Rest, Shortness of Breath with Exertion, Angina, Dizziness/Lightheadedness, Sleep - Normal - SLEEPING ALOT MORE THAN NORMAL - Pain Is Patient Pain Free?: Yes Pain Location: none Pain Level: 0/10 Risk Factor Assessment - Chief Complaint Chief Complaint: 84 MALE OF SANDRO WYATT @ [facility] WHO PRESENTST O CARDIAC REHAB TODAY FOLLOWING RECENT STEMI & PCI INTERVENTION WITH 3 STENTS IN JANUARY. - Vital Signs Temperature: 97.4 F Respiratory Rate: 18 Pulse Ox: 94 Blood Pressure: 127/58 - Pulse Pulse Rate: 81 - Hypertension Blood Pressure Sitting - Right Arm: 127/58 - Blood Cholesterol/Lipids Total Cholesterol (mg/dL) Goal = less than 200 mg/dL: 0 - NOT AVAILABLE FROM PHYSICIAN - Obesity Height: 5 ft 9 in Weight:: 174 lb 14.4 oz Weight in Pounds: 174.9 lbs Weight Source: Standing Scale Body Mass Index (BMI): 25.8 - Physical Inactivity Physical Inactivity: None - Risk Stratification Risk Guidelines: Lowest Risk: Risk Factor for Smoking, Risk Factor for Dyslipidemia, Risk Factor for Diabetes, Risk Factor for Obesity, Risk Factor for Hypertension, Risk Factor for Depression, Moderate Risk: Risk Factor for Sedentary Lifestyle - For Smoking Smoking Risk Guidelines: Smoking Low Risk: None or quit greater than 6 months ago. Smoking Moderate Risk: Smoker or quit 6 months or less ago. Smoking High Risk: Smoker - For Dyslipidemia Dyslipidemia Risk Guidelines: Low Risk: Moderate Risk: High Risk: 15-25% fat 25.1-29% fat >/= 30% fat. <7% sat fat 7-9% sat fat >9% sat fat. <150 mg chol 150-299 mg chol >/= 300 mg chol. LDL <100 LDL 100-129 LDL >/= 130. Chol/HDL ratio <5.0 Chol/HDL ratio 5.0-6.0 Chol/HDL ratio >6.0. Triglycerides <100 Triglycerides 100- 149 Triglycerides >/= 150 - For Diabetes Mellitus Diabetes Risk Guidelines: Diabetes Low Risk: HgA1c <6.5% and/or FBG <120. Diabetes Moderate Risk: HgA1c 6.6-7.9% and/or FBG 120-180. Diabetes High Risk: HgA1c >/= 8% and/or FBG >180 - For Obesity/Overweight Obesity/Overweight Risk Guidelines: Obesity Low Risk: BMI <25.0. Obesity Moderate Risk: BMI 25-29.9. Obesity High Risk: BMI >/= 30.0 - For Hypertension Hypertension Risk Guidelines: Hypertension Low Risk: Systolic <120 and Diastolic <80. Hypertension Moderate Risk: Systolic 120-139 and Carrie stolic 80-89. Hypertension High Risk: Systolic >/= 140 and Diastolic >/= 90 - For Sedentary Lifestyle Sedentary Lifestyle Risk Guidelines: Sedentary Lifestyle Low Risk: >/= 1,500 kcal/week. Sedentary Lifestyle Moderate Risk: 700-1,499 kcal/week. Sedentary Lifestyle High Risk: < 700 kcal/week - For Depression Depression Risk Guidelines: Depression Low Risk: Not clinically depressed. Depression Moderate Risk: Mildly depressed. Depression High Risk: Clinically depressed Motivation - Motivation to Participate On a scale of 1 to 10, how prepared are you to commit to attending program?: 5 What do you see as barriers to successfully being able to complete the program?: NOT A ROUTINE EXERCISE PERSON; GENERALLY A [id number] What do you see as the benefits of succesfully completing the program? In other words, what do you hope to get out of participating in the program?: HELP ME REGAIN SOME LEVEL OF PHYSICAL FITNESS, AND LESSEN THE FATIGUE Are there issues you are dealing with that will interfere with completing the program?: NO Do you have a spouse or signficant other, family or friends who will help support you to complete the program?: YES
--- NOTE | 2020-03-22 12:56 | CR.ITP_ITS ---
Diagnosis - General Information Admitting Diagnosis: STEMI, S/P PCI W/CORONARY STENTING Secondary Diagnosis: FALL TRAUMA W/C-1 CERVICAL FRACTURE Personal Learning Style:: Written Barriers to Learning: Hearing Impairment, Vision Impairment Stage of change r/t lifestyle modifications:: Action Gave educational material for:: Treating Heart Disease, Emotions & Heart Disease, Stress Management & Relaxation, Sleep Disorders & Heart Disease, How The Heart Works, What it means to have Heart Disease, How Coronary Artery Disease is Diagnosed, Heart Procedures, What Heart Medications Do, Risk Factors & Modifications, Living an Active Life, Nutrition - Education/Goals Individual Counseling: Initial Assessment: Abnormal Cholesterol Levels, High Blood Pressure Cardiac Rehabilitation Goals: 1. Maintain the individual as the primary focus of care. 2. To improve the patient's quality of life. 3. Identification of cardiac risk factors and provide cardiac risk factor management. 4. Enhance the psychosocial status of the patient. 5. Reconditioning enough to allow the patient to resume customary activities. 6. Control symptoms of cardiac disease Personal Goals: Initial Assessment: Improve energy level, Get back to work, or to resume activities faster, Improve knowledge of cardiac disease, Improve muscl e strength and endurance, Improve diet and eating habits (eat healthier), Control risk factors (learn risk factor modification) Scale for measuring improvement of personal goals: Enter appropriate number in Comments. 2 = Unchanged. 3 = Slightly Better. 4 = Moderate Improvement. 5 = Met my Goal - Diagnosis & Disease Process Outcomes/Goals: Pt IDs own risk factors & lifestyle modifications by Session 10, Verbalizes symptoms of angina & response by session 3., Pt independently manages Plan/Interventions: Assist Pt to ID & engage in lifestyle modification to reduce CVD risk, Instruct on individual risk factors, Review symptoms of angina & emergency actions, Review secondary diagnosis & identify educational needs. - Safety Referral to Physical Therapy: No Referral to [facility] Case Management: No Fall Risk Assessed:: Yes Assistive Devices:: None Exercise - Initial Assessment - Visit Date of Eval: 03/22/20 Session #:: 0 - PRE-CARDIAC REHAB Mets: Pre-: >5 METS for 30 minutes by discharge - Physician Prescribed Exercise Modalities: Treadmill, Airdyne, NuStep Frequency: 3x/week for 12 weeks [36 sessions] Intensity: 60-80% of age predicted maximum heart rate reserve Current METSs:: 2.5 Target Heart Rate:: 90-117 Resting Blood Pressure: 127/58 - Outcomes & Goals Goals:: Verbalizes understanding of THR, RPE & goal METS by session 6, Documents in home exercise log/reports 30 min aerobic 5 day/wk by DC, Demonstrates accurate pulse taking by DC - Intervention & Plan Exercise Program Goals: Instruct on personal THR & RPE, Instruct on MET level & personal MET goal, Show patient to take own pulse /validate performance until accurate, Instruct on home exercise - Physical Activity Home Exercise Physical Activity - Home Exercise: Safe Exercise, Warm-up, Self-monitoring, Cool-Down, Home Exercise > 30 min Daily, Sitting Time <3 hours/daily - Outcomes & Goals Outcomes/Goals: Demonstrates correct Warm-up/exercise Cool-Down (S3) if = 2.5 METs, Verbalizes symptoms of exercise intolerance by Session 3 (S3), Demonstrate safe equipment use (S3) & follows exercise prescrition (6) - Intervention & Plan Plan/Intervention: Instruct warm-up & cool-down if exercising at > 2 METs, Instruct on symptoms of exercise intolerance & actions to take, Instruct & monitor on saf, Assess intial functional capacity & safety risk Nutrition - Initial Assessment - Program Goals Nutrition Program Goals: LDL <100 optimal. 100 - 129 Near optimal. 130 - 159 Borderline High. 160 - 189 High. Total Cholesterol <200 desirable. 200 - 239 Borderline High. >/= 240 High. HDL < 40 Low >/=60 High. Triglycerides <150 desirable. <199 optimal. VlDL 5 - 40. HgbA1C <7%. BMI <25 Patient has diagnosis of Hyperlipidemia (ICD E78)?: Yes - Visit Date of Assessment:: 03/22/20 Session #:: 0 - NO LIPID PROFILE AVAILABLE TO [facility] FROM PHYSICIAN - Cholesterol/Lipids Determine presence & major risk factors that modify LDL goal: Hypertension or h ypertensive medication, Age men > 45 years; women >/= 55 years Outcomes/Goals: Pt IDs own risk factors & lifestyle modifications by Session 10, Verbalizes symptoms of angina & response by session 3., Pt independently manages Intervention/Plan: Instruct on personal lipid levels & lipid goals/NCEP guidelines, Instruct on cholesterol - Diabetes (Other Core Measures) Diabetes Type: Not Applicable - Weight Mgt (Other Care) Not Applicable: Yes Height: 5 ft 9 in Weight:: 174 lb 14.4 oz BMI: 25.8 Diagnosis Overweight/Obesity BMI> 30% ICD-10 E66: No Diagnosis High BMI/Morbid Obesity BMI> 35% ICD-10 Z68: No Outcomes/Goals: Pt sets, maintains & shows weight loss goal & trend during rehab Intervention/Plan: Instruct on ideal BMI & set weight loss goal w/patient - Healthy Eating Habits Will attend diet classes:: Yes Outcomes/Goals:: Consume diet rich in vegs,fruits,whole grain/high fiber,fish,lean meat, Limit sat/trans fats,cholesterol & added salts & sugars Intervention/Plan:: Assess current eating habits - Education Gave educational materials for:: Healthy eating Medical - Initial Assessment - Visit Date of Eval: 03/22/20 Session #:: 0 - PRE-CARDIAC REHAB - Medication Compliance Preventative Medication(s):: Aspirin, Ticagrelor/P2Y12 inhibitor, Statin/lipid, Beta angie H/O mental health issues: depression, anxiety, or addiction?: No Doesn?t believe in the benefits of treatment?: No Believes medications are unnecessary or harmful?: No Has a concern about medication side effects?: No Expresses concern over the cost of medications?: No Outcomes/Goals: Verbalizes medications,desired effect & common side effects @ DC, Pt self-reports following medication regimen, Keeps card in wallet w/medications listed by DC Interventions/plans: Instruct on medication effects & side effects, Review medication list w/patient every two weeks, Instruct importance of taking meds as ordered & assist problem solving - Tobacco Use Tobacco Use: Non-smoker - Hypertension Hypertension Diagnosis:: Hypertension ICD-10 I10 Resting Blood Pressure:: 127/58 [place] [employer] Hypertension Guidelines: [place] [employer] Hypertension Guidelines. Normal BP Less than 120/80. Elevated BP 120/80. Hypertension Stage 1: BP 130-139/80-89. Hypertesnion Stage 2: BP 140 or higher/90 or higher. Hypertension Crisis: BP higher than 180/120 Outcomes/Goals: Able to verbalize/achieve optimal blood pressure <130/80, Incorporates diet changes & exercise for blood pressure control by DC Interventions/plan: Instruct on optimal blood pressure, hypertension & medications, Instruct on effects of sodium, alcohol, stress, exercise &hypertension - Tobacco Cessation Referral Smoking Cessation Referral:: No Individual Education/Counseling:: No Education Schedule Given:: Yes Psychosocial - Initial Assess - VIsit Date of Eval: 03/22/20 Session #:: 0 - PRE-CARDIAC REHAB Not Applicable: Yes History of previous Mental disease:: No - Target Goals Target Goals: Assess presence or absence of depression. Using a valid screening tool, maximizes coping skills. Positive support system - Psychosocial Test Tool Used:: Ben Padilla QOL Cardiac, PHQ-9 Questionnaire phq-9 Severity: Severity. 1-4 Minimal Depression. 5-9 Mild Depression. 10-14 Moderate Depression. 15-19 Moderately Sever Depression. 20-27 Severe Depression. Rule: - Referral to Behavioral Health PS - Interventions: Yes Attend Stress Management Classes, No Referral to Behavioral Health if PHQ-9 score >9:, No Referral to [facility], No Referral to Physician if PHQ-9 if score is 5-9: - Outcomes/Goals: See list Psychosocial Outcomes/Goals:: ID's personal stressors & 2 strategies to manage stress by discharge - Intervention/Plan: See List Interventions/Plan:: Assess stressors,coping strategies & signs of derpression on admission, Instruct/assist pt to develop coping & personal stress Mgt strategies, Instruct patient to recognize signs & symptoms of depression, Instruct patient to recog Patient Health Questionnaire Initial Assessment 1. Little interest or pleasure in doing things: Not at all 2. Feeling down, depressed, or hopeless: Not at all 3. Trouble falling or staying asleep, or sleeping too much: More than half the days 4. Feeling tired or having little energy: More than half the days 5. Poor appetite or overeating: Not at all 6. Feeling bad about yourself -- or that you are a failure or have let yourself or your family down: Not at all 7. Trouble concentrating on things, such as reading the newspaper or watching television: Not at all 8. Moving or speaking so slowly that other people could have noticed. Or the opp osite - being so fidgety or restless that you have been moving around a lot more than usual: Not at all 9. Thoughts that you would be better off , or of hurting yourself in some way: Not at all How difficult have these problems made it for you to do your work, take care of things at home, or get along with other people?: Not difficult at all Total Score: 4 BRANDIE-Q SV Test - Statements CAD is a disease of the arteries in the heart: True Examples of risk factors for heart disease: True Angina is chest pain or discomfort: I Don't Know The benefits of resistance training include: True Eating more meat and dairy products: True Anti-platelet medications such as aspirin are important: True The only effective way to manage stress: I Don't Know An exercise warm-up slowly increases heart rate: True Prepared, processed foods usually have high sodium: I Don't Know Depression is common after a heart attack: True The statin medications lower cholesterol: True To control blood pressure, lower the amount of sodium: True If someone gets chest discomfort during walking: True Transfats are partially hydrogenated vegetable oils: True Sleep apnea that is not treated increases the risk: False To control cholesterol, one should become a vegetarian: True Someone knows if he/she is exercising at the right level: True Diabetes cannot be prevented with exercise & health eating: False Stress is a large risk for heart attack: True A diet that can help lower blood pressure is rich in: True - Total Score Total Correct Responses: 13 Self-Efficacy Initial Assessment We would like to know how confident you are in doing certain activities. Please select your confidence level for:: Select your confidence level for the following using the scale 1-10 where 1 is not at all confident and 10 is totally confident. Your score is the average of all 6 responses. Fatigue: How confident are you that you can keep the fatigue caused by your disease from interfering with the things you want to do? Select Number: 8 Physical Discomfort or Pain: How confident are you that you can keep the physical discomfort or pain of your disease from interfering with the things you want to do? Select Number: 8 Emotional Distress: How confident are you that you can keep the emotional distress caused by your disease from interfering with the things you want to do? Select Number: 6 Other Symptoms or Health Problems: How confident are you that you can keep other symptoms or health problems from interfering with the things you want to do? Select Number: 5 Different Tasks and Activities: How confident are you that you can do the different tasks and activities needed to manage your health condition so as to reduce your need to see a doctor? Select Number: 7 Medication: How confident are you that you can do things other than just taking medication to reduce how much your illness affects your everyday life? Select Number: 6 Total Score:: 6 Nutrition Survey - Nutrition Survey Instructions Scoring Instructions: Scoring is as follows: Yes = 1 points. No = 0 point. Patient score that is >/=12 is considered to be at potential nutritional risk and could benefit from a referral to a registered dietitian. - Nutrition Survey Initial Have you lost >10 lbs over the past 2 months without trying?: No Are you following a special diet at home for diabetes, low fat, or low salt?: Yes Are you interested in meeting with a dietitian for help understanding your diet?: Yes Do you eat less than 3 meals a day?: Yes Do you eat fatty meats (camacho, sausage, ribs, etc), fried foods, desserts, large amounts of salad dressings, margarine, butter, or cheese most days?: Yes Do you have food allergies? [Enter types in comment field]: No Do you eat in restaurants more than 3 times a week?: Yes Do you season food with salt, seasoning salt, or garlic salt?: No Do you used canned, boxed, frozen meals, or soups, seasoning packets?: No Total Score:: 5
[2020-03-22 13:21] VITALS: BP 127/58; BMI 25.8
[2020-03-22 13:34] VITALS: BP 127/58; PULSE 81; RESP 18; TEMP 36.3; O2SAT 94; BMI 25.8
== END ==
PROVIDERS: PCP Nurse Practitioner
DX: I10 Essential (primary) hypertension (principal); N17.9 Acute kidney failure, unspecified

== ENCOUNTER 2020-04-12 10:15 | Outpatient (RCR) | payer MEDICARE, SELFPAY ==
[2020-03-22 13:21] VITALS: BMI 25.8
[2020-03-22 13:34] VITALS: BMI 25.8
== END 2020-04-13 23:59 ==
LOC: CR 10:15
PROVIDERS: PCP Nurse Practitioner
DX: Z95.5 Presence of coronary angioplasty implant and graft (principal)
CPT/HCPCS: 93798

== ENCOUNTER 2020-05-13 10:15 | Outpatient (RCR) | payer MEDICARE, SELFPAY ==
[2020-03-22 13:21] VITALS: BMI 25.8
[2020-03-22 13:34] VITALS: BMI 25.8
--- NOTE | 2020-04-24 08:18 | CR.ITP_ITS ---
Exercise - 30-day Assessment - Visit Date of Eval: 04/24/20 Session #:: 13 - Physician Prescribed Exercise Modalities: Treadmill, Airdyne, NuStep, SciFit Frequency: 3x/week for 12 weeks [36 sessions] Intensity: 60-80% of age predicted maximum heart rate reserve Current METSs:: 3.0; LOW LEVEL @ THIS TIME DUE TO FALL RISK AND CERVICAL FRACTURE Target Heart Rate:: 100 Current RPE:: 11-13 Maximum Excercise HR:: 103 Resting Blood Pressure: 118/72 Maximum Exercise Blood Pressure: 134/72 EKG Type: NSR to sinus tach, BBB with rare PVCs, ventricular bigeminy - Outcomes & Goals Goals:: Verbalizes understanding of THR, RPE & goal METS by session 6, Documents in home exercise log/reports 30 min aerobic 5 day/wk by DC, Demonstrates accurate pulse taking by DC - Intervention & Plan Exercise Program Goals: Instruct on personal THR & RPE, Instruct on MET level & personal MET goal, Show patient to take own pulse /validate performance until accurate, Instruct on home exercise - 30-day Reassessments 30 day Reassessments:: Progressing - Outcomes & Goals Outcomes/Goals: Demonstrates correct Warm-up/exercise Cool-Down (S3) if = 2.5 METs, Verbalizes symptoms of exercise intolerance by Session 3 (S3), Demonstrate safe equipment use (S3) & follows exercise prescrition (6) - Intervention & Plan Plan/Intervention: Instruct warm-up & cool-down if exercising at > 2 METs, Instruct on symptoms of exercise intolerance & actions to take, Instruct & monitor on saf, Assess intial functional capacity & safety risk - 30-day Reassessments 30 day Reassessments:: Progressing Nutrition - 30-Day Assessment - Program Goals Nutrition Program Goals: LDL <100 optimal. 100 - 129 Near optimal. 130 - 159 Borderline High. 160 - 189 High. Total Cholesterol <200 desirable. 200 - 239 Borderline High. >/= 240 High. HDL < 40 Low >/=60 High. Triglycerides <150 desirable. <199 optimal. VlDL 5 - 40. HgbA1C <7%. BMI <25 Patient has diagnosis of Hyperlipidemia (ICD E78)?: Yes - Visit Date of Assessment:: 04/24/20 Session #:: 13 - Cholesterol/Lipids Triglycerides (mg/dL): 0 - unavailable Determine presence & major risk factors that modify LDL goal: Hypertension or hypertensive medication, Low HDL cholesterol <40 mg/dL*, Family history of premature CHD in Male < 55 years: female <65 yearsFa, Age men > 45 years; women >/= 55 years Outcomes/Goals: Pt IDs own risk factors & lifestyle modifications by Session 10, Verbalizes symptoms of angina & response by session 3., Pt independently manages Intervention/Plan: Instruct on personal lipid levels & lipid goals/NCEP guidelines, Instruct on cholesterol Referral to dietitian:: Yes - Medical Nutrition Therapy 30-day Reassessments:: Progressing - Diabetes (Other Core Measures) Diabetes Type: Not Applicable - Weight Mgt (Other Care) Not Applicable: Yes Height: 5 ft 9 in Weight:: 176 lb BMI: 25.9 Diagnosis Overweight/Obesity BMI> 30% ICD-10 E66: No Diagnosis High BMI/Morbid Obesity BMI> 35% ICD-10 Z68: No Outcomes/Goals: Pt sets, maintains & shows weight loss goal & trend during rehab Intervention/Plan: Instruct on ideal BMI & set weight loss goal w/patient, Assist pt to ID & incorporate diet changes for weight loss by S9, Encourage goal of using 250-300dcal per session for weight loss 30 day Reassessments:: Progressing - Healthy Eating Habits Will attend diet classes:: Yes Outcomes/Goals:: Consume diet rich in vegs,fruits,whole grain/high fiber,fish,lean meat, Limit sat/trans fats,cholesterol & added salts & sugars Intervention/Plan:: Assess current eating habits 30-day Reassessments:: Progressing Medical- 30-Day Assessment - Visit Date of Eval: 04/24/20 Session #:: 13 - Medication Compliance Preventative Medication(s):: Aspirin, Ticagrelor/P2Y12 inhibitor, Statin/lipid, Beta angie H/O mental health issues: depression, anxiety, or addiction?: No Doesn?t believe in the benefits of treatment?: No Believes medications are unnecessary or harmful?: No Has a concern about medication side effects?: No Expresses concern over the cost of medications?: No Outcomes/Goals: Verbalizes medications,desired effect & common side effects @ DC, Pt self-reports following medication regimen, Keeps card in wallet w/medications listed by DC Interventions/plans: Instruct on medication effects & side effects, Review medication list w/patient every two weeks, Instruct importance of taking meds as ordered & assist problem solving 30-day Reassessments:: Progressing - Tobacco Use Tobacco Use: Non-smoker - Hypertension Hypertension Diagnosis:: Hypertension ICD-10 I10 Resting Blood Pressure:: 118/62 [place] [employer] Hypertension Guidelines: [place] [employer] Hypertension Guidelines. Normal BP Less than 120/80. Elevated BP 120/80. Hypertension Stage 1: BP 130-139/80-89. Hypertesnion Stage 2: BP 140 or higher/90 or higher. Hypertension Crisis: BP higher than 180/120 Peak Exercise Blood Pressure:: 138/72 Outcomes/Goals: Able to verbalize/achieve optimal blood pressure <130/80, Incorporates diet changes & exercise for blood pressure control by DC Interventions/plan: Instruct on optimal blood pressure, hypertension & medications, Instruct on effects of sodium, alcohol, stress, exercise &hypertension 30 day Reassessments:: Progressing - Tobacco Cessation Referral Smoking Cessation Referral:: No Individual Education/Counseling:: No Education Schedule Given:: Yes Psychosocial - 30-Day Assess - VIsit Date of Eval: 04/24/20 Session #:: 13 Not Applicable: Yes History of previous Mental disease:: No - Target Goals Target Goals: Assess presence or absence of depression. Using a valid screening tool, maximizes coping skills. Positive support system - Psychosocial Test Tool Used:: PHQ-9 Questionnaire phq-9 Severity: Severity. 1-4 Minimal Depression. 5-9 Mild Depression. 10-14 Moderate Depression. 15-19 Moderately Sever Depression. 20-27 Severe Depression. Rule: - Referral to Behavioral Health PS - Interventions: Yes Attend Stress Management Classes, No Referral to Behavioral Health if PHQ-9 score >9:, No Referral to [facility], No Referral to Physician if PHQ-9 if score is 5-9: - Outcomes/Goals: See list Psychosocial Outcomes/Goals:: ID's personal stressors & 2 strategies to manage stress by discharge - Intervention/Plan: See List Interventions/Plan:: Assess stressors,coping strategies & signs of derpression on admission, Instruct/assist pt to develop coping & personal stress Mgt strategies, Instruct patient to recognize signs & symptoms of depression, Instruct patient to recog - 30-day Reassessments: 30 day Reassessments:: Progressing Patient Health Questionnaire 30-Day Re-eval Assessment 1. Little interest or pleasure in doing things: Not at all 2. Feeling down, depressed, or hopeless: Not at all 3. Trouble falling or staying asleep, or sleeping too much: Several days 4. Feeling tired or having little energy: Several days 5. Poor appetite or overeating: Not at all 6. Feeling bad about yourself -- or that you are a failure or have let yourself or your family down: Not at all 7. Trouble concentrating on things, such as reading the newspaper or watching television: Not at all 8. Moving or speaking so slowly that other people could have noticed. Or the opposite - being so fidgety or restless that you have been moving around a lot more than usual: Not at all 9. Thoughts that you would be better off , or of hurting yourself in some way: Not at all How difficult have these problems made it for you to do your work, take care of things at home, or get along with other people?: Not difficult at all Total Score: 2 Self-Efficacy 30-Day Re-eval Assessment We would like to know how confident you are in doing certain activities. Please select your confidence level for:: Select your confidence level for the following using the scale 1-10 where 1 is not at all confident and 10 is totally confident. Your score is the average of all 6 responses. Fatigue: How confident are you that you can keep the fatigue caused by your disease from interfering with the things you want to do? Select Number: 9 Physical Discomfort or Pain: How confident are you that you can keep the physical discomfort or pain of your disease from interfering with the things you want to do? Select Number: 9 Emotional Distress: How confident are you that you can keep the emotional distress caused by your disease from interfering with the things you want to do? Select Number: 8 Other Symptoms or Health Problems: How confident are you that you can keep other symptoms or health problems from interfering with the things you want to do? Select Number: 7 Different Tasks and Activities: How confident are you that you can do the different tasks and activities needed to manage your health condition so as to reduce your need to see a doctor? Select Number: 8 Medication: How confident are you that you can do things other than just taking medication to reduce how much your illness affects your everyday life? Select Number: 7 Total Score:: 8
[2020-04-24 08:26] VITALS: BP 118/62; BP 118/72; BP 138/72; BMI 25.9
== END 2020-05-13 23:59 ==
LOC: CR 10:15
PROVIDERS: PCP Nurse Practitioner
DX: Z95.5 Presence of coronary angioplasty implant and graft (principal)
CPT/HCPCS: 93798

== ENCOUNTER 2020-06-12 10:15 | Outpatient (RCR) | payer MEDICARE, SELFPAY ==
[2020-03-22 13:34] VITALS: BMI 25.8
[2020-04-24 08:26] VITALS: BMI 25.9
[2020-05-14 00:35] VITALS: BP 118/62; BP 118/72; BP 138/72
--- NOTE | 2020-05-22 08:37 | CR.ITP_ITS ---
Exercise - 60-day Assessment - Visit Date of Eval: 05/22/20 Session #:: 23 - Physician Prescribed Exercise Modalities: Airdyne, NuStep, SciFit Frequency: 3x/week for 12 weeks [36 sessions] Intensity: 60-80% of age predicted maximum heart rate reserve Current METSs:: 3 Target Heart Rate:: 100 Current RPE:: 11-13 Maximum Excercise HR:: 106 Resting Blood Pressure: 110/70 Maximum Exercise Blood Pressure: 148/78 EKG Type: NSR to sinus tachy with BBB rare PVC's rare PAC's - Outcomes & Goals Goals:: Verbalizes understanding of THR, RPE & goal METS by session 6, Documents in home exercise log/reports 30 min aerobic 5 day/wk by DC, Demonstrates accurate pulse taking by DC, Other additional outcome/goals: see below - Intervention & Plan Exercise Program Goals: Instruct on personal THR & RPE, Instruct on MET level & personal MET goal, Show patient to take own pulse /validate performance until accurate, Instruct on home exercise, Other additional plan/int - 30-day Reassessments 30 day Reassessments:: Progressing - Physical Activity Home Exercise Physical Activity - Home Exercise: Safe Exercise, Warm-up, Self-monitoring, Cool-Down, Home Exercise > 30 min Daily, Sitting Time <3 hours/daily - Outcomes & Goals Outcomes/Goals: Demonstrates correct Warm-up/exercise Cool-Down (S3) if = 2.5 METs, Verbalizes symptoms of exercise intolerance by Session 3 (S3), Demonstrate safe equipment use (S3) & follows exercise prescrition (6), Other: See below - Intervention & Plan Plan/Intervention: Instruct warm-up & cool-down if exercising at > 2 METs, Instruct on symptoms of exercise intolerance & actions to take, Instruct & monitor on saf, Assess intial functional capacity & safety risk, Other See below - 30-day Reassessments 30 day Reassessments:: Progressing Nutrition - 60-Day Assessment - Program Goals Nutrition Program Goals: LDL <100 optimal. 100 - 129 Near optimal. 130 - 159 Borderline High. 160 - 189 High. Total Cholesterol <200 desirable. 200 - 239 Borderline High. >/= 240 High. HDL < 40 Low >/=60 High. Triglycerides <150 desirable. <199 optimal. VlDL 5 - 40. HgbA1C <7%. BMI <25 Patient has diagnosis of Hyperlipidemia (ICD E78)?: Yes - Visit Date of Assessment:: 05/22/20 Session #:: 23 - Cholesterol/Lipids Determine presence & major risk factors that modify LDL goal: Hypertension or hypertensive medication, Low HDL cholesterol <40 mg/dL*, Family history of premature CHD in Male < 55 years: female <65 yearsFa, Age men > 45 years; women >/= 55 years Outcomes/Goals: Pt IDs own risk factors & lifestyle modifications by Session 10, Verbalizes symptoms of angina & response by session 3., Pt independently manages, Other Additional Outcomes/Goals: Intervention/Plan: Advocate for lipid panel cholesterol medication if applicable, Instruct on personal lipid levels & lipid goals/NCEP guidelines, Instruct on cholesterol, Other additional plan/int Referral to dietitian:: Yes - medical nutritional therapy 30-day Reassessments:: Progressing - Diabetes (Other Core Measures) Diabetes Type: Not Applicable - Weight Mgt (Other Care) Height: 5 ft 9 in Weight:: 79.605 kg BMI: 25.9 Diagnosis Overweight/Obesity BMI> 30% ICD-10 E66: No Diagnosis High BMI/Morbid Obesity BMI> 35% ICD-10 Z68: No Outcomes/Goals: Pt sets, maintains & shows weight loss goal & trend during rehab, Other additional outcomes/goals Intervention/Plan: Instruct on ideal BMI & set weight loss goal w/patient, Assist pt to ID & incorporate diet changes for weight loss by S9, Refer to Structured Weight Loss program as appropriate, Encourage goal of using 250- 300dcal per session for weight loss, Other additional plan/interventions 30 day Reassessments:: Progressing - Healthy Eating Habits Will attend diet classes:: Yes Outcomes/Goals:: Consume diet rich in vegs,fruits,whole grain/high fiber,fish,lean meat, Limit sat/trans fats,cholesterol & added salts & sugars, Other additional outcome/goals: Intervention/Plan:: Assess current eating habits, Other Additional plan/interventions 30-day Reassessments:: Progressing - Education Gave educational materials for:: Signs & symptoms of hypoglycemia, Signs & symptoms of hyperglycemia, Relate diabetes to coronary artery disease, Healthy eating Medical- 60-Day Assessment - Visit Date of Eval: 05/22/20 Session #:: 23 - Medication Compliance Preventative Medication(s):: Aspirin, Ticagrelor/P2Y12 inhibitor, Statin/lipid, Beta angie H/O mental health issues: depression, anxiety, or addiction?: No Doesn?t believe in the benefits of treatment?: No Believes medications are unnecessary or harmful?: No Has a concern about medication side effects?: No Expresses concern over the cost of medications?: No Outcomes/Goals: Verbalizes medications,desired effect & common side effects @ DC, Pt self-reports following medication regimen, Keeps card in wallet w/medications listed by DC, Other additional outcome/goals: Interventions/plans: Instruct on medication effects & side effects, Review medication list w/patient every two weeks, Instruct importance of taking meds as ordered & assist problem solving, Other additional 30-day Reassessments:: Progressing - Tobacco Use Tobacco Use: Non-smoker Do you use smokeless tobacco?: No - Hypertension Hypertension Diagnosis:: Hypertension ICD-10 I10 Resting Blood Pressure:: 110/70 [place] [employer] Hypertension Guidelines: [place] [employer] Hypertension Guidelines. Normal BP Less than 120/80. Elevated BP 120/80. Hypertension Stage 1: BP 130-139/80-89. Hypertesnion Stage 2: BP 140 or higher/90 or higher. Hypertension Crisis: BP higher than 180/120 Outcomes/Goals: Able to verbalize/achieve optimal blood pressure <130/80, Incorporates diet changes & exercise for blood pressure control by DC, Other additional outcomes/goals Interventions/plan: Instruct on optimal blood pressure, hypertension & medications, Instruct on effects of sodium, alcohol, stress, exercise &hypertension, Other additional plan/interventions 30 day Reassessments:: Progressing - Tobacco Cessation Referral Smoking Cessation Referral:: No Individual Education/Counseling:: No Education Schedule Given:: Yes Psychosocial - 60-Day Assess - VIsit Date of Eval: 05/22/20 Session #:: 23 - . History of previous Mental disease:: No - Target Goals Target Goals: Assess presence or absence of depression. Using a valid screening tool, maximizes coping skills. Positive support system - Psychosocial Test phq-9 Severity: Severity. 1-4 Minimal Depression. 5-9 Mild Depression. 10-14 Moderate Depression. 15-19 Moderately Sever Depression. 20-27 Severe Depression. Rule: - Outcomes/Goals: See list Psychosocial Outcomes/Goals:: ID's personal stressors & 2 strategies to manage stress by discharge, Other Additional outcome/goals: - Intervention/Plan: See List Interventions/Plan:: Assess stressors,coping strategies & signs of derpression on admission, Instruct/assist pt to develop coping & personal stress Mgt strategies, Refer to Behavioral Health if appropriate, Refer to Physician if appropriate, Instruct patient to recognize signs & symptoms of depression, Instruct patient to recog, Other additional plan/intervention - 30-day Reassessments: 30 day Reassessments:: Progressing Patient Health Questionnaire 60-Day Re-eval Assessment 1. Little interest or pleasure in doing things: Not at all 2. Feeling down, depressed, or hopeless: Not at all 3. Trouble falling or staying asleep, or sleeping too much: Several days 4. Feeling tired or having little energy: Several days 5. Poor appetite or overeating: Not at all 6. Feeling bad about yourself -- or that you are a failure or have let yourself or your family down: Not at all 7. Trouble concentrating on things, such as reading the newspaper or watching television: Not at all 8. Moving or speaking so slowly that other people could have noticed. Or the opposite - being so fidgety or restless that you have been moving around a lot more than usual: Not at all 9. Thoughts that you would be better off , or of hurting yourself in some way: Not at all How difficult have these problems made it for you to do your work, take care of things at home, or get along with other people?: Not difficult at all Total Score: 2 Self-Efficacy 60-Day Re-eval Assessment We would like to know how confident you are in doing certain activities. Please select your confidence level for:: Select your confidence level for the following using the scale 1-10 where 1 is not at all confident and 10 is totally confident. Your score is the average of all 6 responses. Fatigue: How confident are you that you can keep the fatigue caused by your disease from interfering with the things you want to do? Select Number: 9 Physical Discomfort or Pain: How confident are you that you can keep the physical discomfort or pain of your disease from interfering with the things you want to do? Select Number: 9 Emotional Distress: How confident are you that you can keep the emotional distress caused by your disease from interfering with the things you want to do? Select Number: 8 Other Symptoms or Health Problems: How confident are you that you can keep other symptoms or health problems from interfering with the things you want to do? Select Number: 7 Different Tasks and Activities: How confident are you that you can do the different tasks and activities needed to manage your health condition so as to reduce your need to see a doctor? Select Number: 8 Medication: How confident are you that you can do things other than just taking medication to reduce how much your illness affects your everyday life? Select Number: 7 Total Score:: 8
[2020-05-22 08:46] VITALS: BP 110/70; BMI 25.9
== END 2020-06-13 23:59 ==
LOC: CR 10:15
PROVIDERS: PCP Nurse Practitioner
DX: Z95.5 Presence of coronary angioplasty implant and graft (principal)
CPT/HCPCS: 93798

== ENCOUNTER 2020-07-03 10:15 | Outpatient (RCR) | payer MEDICARE, SELFPAY ==
[2020-03-22 13:34] VITALS: BMI 25.8
[2020-05-22 08:46] VITALS: BMI 25.9
[2020-06-14 00:30] VITALS: BP 110/70; BP 138/72
--- NOTE | 2020-06-21 12:35 | CR.ITP_ITS ---
Exercise - 90-day Assessment - Visit Date of Eval: 06/21/20 Session #:: 33 - Physician Prescribed Exercise Modalities: Treadmill, Airdyne, NuStep, SciFit Frequency: 3x/week for 12 weeks [36 sessions] Intensity: 60-80% of age predicted maximum heart rate reserve Current METSs:: 3.0 UNCHANGED Target Heart Rate:: 100 Current RPE:: 12 Maximum Excercise HR:: 108 Resting Blood Pressure: 140/78 Maximum Exercise Blood Pressure: 154/72 EKG Type: NSR to sinus tachycardia, BBB and rare PVCs noted. - Outcomes & Goals Goals:: Verbalizes understanding of THR, RPE & goal METS by session 6, Documents in home exercise log/reports 30 min aerobic 5 day/wk by DC, Demonstrates accurate pulse taking by DC - Intervention & Plan Exercise Program Goals: Instruct on personal THR & RPE, Instruct on MET level & personal MET goal, Show patient to take own pulse /validate performance until accurate, Instruct on home exercise - 30-day Reassessments 30 day Reassessments:: Not Met - Physical Activity Home Exercise Physical Activity - Home Exercise: Safe Exercise, Warm-up, Self-monitoring, Co ol-Down, Home Exercise > 30 min Daily, Sitting Time <3 hours/daily - Outcomes & Goals Outcomes/Goals: Demonstrates correct Warm-up/exercise Cool-Down (S3) if = 2.5 METs, Verbalizes symptoms of exercise intolerance by Session 3 (S3), Demonstrate safe equipment use (S3) & follows exercise prescrition (6) - Intervention & Plan Plan/Intervention: Instruct warm-up & cool-down if exercising at > 2 METs, Instruct on symptoms of exercise intolerance & actions to take, Instruct & monitor on saf, Assess intial functional capacity & safety risk - 30-day Reassessments 30 day Reassessments:: Not Met Nutrition - 90-Day Assessment - Program Goals Nutrition Program Goals: LDL <100 optimal. 100 - 129 Near optimal. 130 - 159 Borderline High. 160 - 189 High. Total Cholesterol <200 desirable. 200 - 239 Borderline High. >/= 240 High. HDL < 40 Low >/=60 High. Triglycerides <150 desirable. <199 optimal. VlDL 5 - 40. HgbA1C <7%. BMI <25 Patient has diagnosis of Hyperlipidemia (ICD E78)?: Yes - Visit Date of Assessment:: 06/21/20 Session #:: 33 - no updated labs made available to CR. - Cholesterol/Lipids Determine presence & major risk factors that modify LDL goal: Hypertension or hypertensive medication, Family history of premature CHD in Male < 55 years: female <65 yearsFa, Age men > 45 years; women >/= 55 years Outcomes/Goals: Pt IDs own risk factors & lifestyle modifications by Session 10, Verbalizes symptoms of angina & response by session 3., Pt independently manages Intervention/Plan: Instruct on personal lipid levels & lipid goals/NCEP guidelines, Instruct on cholesterol 30-day Reassessments:: Progressing - Diabetes (Other Core Measures) Diabetes Type: Not Applicable - Weight Mgt (Other Care) Not Applicable: Yes Height: 5 ft 9 in Weight:: 178 lb 8 oz BMI: 26.3 Diagnosis Overweight/Obesity BMI> 30% ICD-10 E66: No Diagnosis High BMI/Morbid Obesity BMI> 35% ICD-10 Z68: No Outcomes/Goals: Pt sets, maintains & shows weight loss goal & trend during rehab Intervention/Plan: Instruct on ideal BMI & set weight loss goal w/patient, Assist pt to ID & incorporate diet changes for weight loss by S9 30 day Reassessments:: Progressing - Healthy Eating Habits Will attend diet classes:: Yes Outcomes/Goals:: Consume diet rich in vegs,fruits,whole grain/high fiber,fish,lean meat, Limit sat/trans fats,cholesterol & added salts & sugars Intervention/Plan:: Assess current eating habits 30-day Reassessments:: Progressing Medical- 90-Day Assessment - Visit Date of Eval: 06/21/20 Session #:: 33 - Medication Compliance Preventative Medication(s):: Aspirin, Statin/lipid H/O mental health issues: depression, anxiety, or addiction?: No Doesn?t believe in the benefits of treatment?: No Believes medications are unnecessary or harmful?: No Has a concern about medication side effects?: No Expresses concern over the cost of medications?: No Outcomes/Goals: Verbalizes medications,desired effect & common side effects @ DC, Pt self-reports following medication regimen, Keeps card in wallet w/medications listed by DC Interventions/plans: Instruct on medication effects & side effects, Review medication list w/patient every two weeks, Instruct importance of taking meds as ordered & assist problem solving 30-day Reassessments:: Progressing - Tobacco Use Tobacco Use: Non-smoker - Hypertension Resting Blood Pressure:: 140/78 [employer] Hypertension Guidelines: [place] [employer] Hypertension Guidelines. Normal BP Less than 120/80. Elevated BP 120/80. Hypertension Stage 1: BP 130-139/80-89. Hypertesnion Stage 2: BP 140 or higher/90 or higher. Hypertension Crisis: BP higher than 180/120 Peak Exercise Blood Pressure:: 154/72 Outcomes/Goals: Able to verbalize/achieve optimal blood pressure <130/80, Incorporates diet changes & exercise for blood pressure control by DC Interventions/plan: Instruct on optimal blood pressure, hypertension & medications, Instruct on effects of sodium, alcohol, stress, exercise &hypertension 30 day Reassessments:: Progressing - Tobacco Cessation Referral Smoking Cessation Referral:: No Individual Education/Counseling:: No Education Schedule Given:: Yes Psychosocial - 90-Day Assess - VIsit Date of Eval: 06/21/20 Session #:: 33 Not Applicable: Yes History of previous Mental disease:: No - Target Goals Target Goals: Assess presence or absence of depression. Using a valid screening tool, maximizes coping skills. Positive support system - Psychosocial Test Tool Used:: PHQ-9 Questionnaire phq-9 Severity: Severity. 1-4 Minimal Depression. 5-9 Mild Depression. 10-14 Moderate Depression. 15-19 Moderately Sever Depression. 20-27 Severe Depression. Rule: - Referral to Behavioral Health PS - Interventions: Yes Attend Stress Management Classes, No Referral to Behavioral Health if PHQ-9 score >9:, No Referral to [facility], No Referral to Physician if PHQ-9 if score is 5-9: - Outcomes/Goals: See list Psychosocial Outcomes/Goals:: ID's personal stressors & 2 strategies to manage stress by discharge - Intervention/Plan: See List Interventions/Plan:: Assess stressors,coping strategies & signs of derpression on admission, Instruct/assist pt to develop coping & personal stress Mgt strategies, Instruct patient to recognize signs & symptoms of depression, Instruct patient to recog - 30-day Reassessments: 30 day Reassessments:: Progressing Patient Health Questionnaire 90-Day Re-eval Assessment 1. Little interest or pleasure in doing things: Not at all 2. Feeling down, depressed, or hopeless: Not at all 3. Trouble falling or staying asleep, or sleeping too much: Not at all 4. Feeling tired or having little energy: Not at all 5. Poor appetite or overeating: Not at all 6. Feeling bad about yourself -- or that you are a failure or have let yourself or your family down: Not at all 7. Trouble concentrating on things, such as reading the newspaper or watching television: Not at all 8. Moving or speaking so slowly that other people could have noticed. Or the opposite - being so fidgety or restless that you have been moving around a lot more than usual: Not at all 9. Thoughts that you would be better off , or of hurting yourself in some way: Not at all Total Score: 0 Self-Efficacy 90-Day Re-eval Assessment We would like to know how confident you are in doing certain activities. Please select your confidence level for:: Select your confidence level for the following using the scale 1-10 where 1 is not at all confident and 10 is totally confident. Your score is the average of all 6 responses. Fatigue: How confident are you that you can keep the fatigue caused by your disease from interfering with the things you want to do? Select Number: 9 Physical Discomfort or Pain: How confident are you that you can keep the physical discomfort or pain of your disease from interfering with the things you want to do? Select Number: 9 Emotional Distress: How confident are you that you can keep the emotional distress caused by your disease from interfering with the things you want to do? Select Number: 8 Other Symptoms or Health Problems: How confident are you that you can keep other symptoms or health problems from interfering with the things you want to do? Select Number: 8 Different Tasks and Activities: How confident are you that you can do the different tasks and activities needed to manage your health condition so as to reduce your need to see a doctor? Select Number: 8 Medication: How confident are you that you can do things other than just taking medication to reduce how much your illness affects your everyday life? Select Number: 9 Total Score:: 8
[2020-06-21 12:40] VITALS: BP 140/78; BP 154/72; BMI 26.3
== END 2020-07-14 23:59 ==
LOC: CR 10:15
PROVIDERS: PCP Nurse Practitioner
DX: Z95.5 Presence of coronary angioplasty implant and graft (principal)
CPT/HCPCS: 93798

== ENCOUNTER 2020-11-16 08:24 | Emergency (ER) | payer MEDICARE, SELFPAY ==
[2020-03-22 13:34] VITALS: BMI 25.8
[2020-06-21 12:40] VITALS: BMI 26.3
[2020-11-16 08:25] VITALS: BP 129/70; PULSE 94; RESP 18; TEMP 37; O2SAT 95; BMI 28.1
[2020-11-16 08:36] VITALS: BP 141/64; PULSE 90; RESP 20; O2SAT 93
--- NOTE | 2020-11-16 08:56 | EKG12_ITS ---
Test Reason : PALP Blood Pressure : / mmHG Vent. Rate : 084 BPM Atrial Rate : 084 BPM P-R Int : 186 ms QRS Dur : 146 ms QT Int : 392 ms P-R-T Axes : 067 -29 -06 degrees QTc Int : 463 ms Sinus rhythm with Blocked Premature atrial complexes Right bundle branch block Inferior infarct , age undetermined T wave abnormality, consider lateral ischemia Abnormal ECG Confirmed by AROLDO SIMMONS, EUSEBIO ([id number]), graphics editor CHRISTA HUSSEIN ([id number]) on 11/19/2020 10:03:35 AM Referred By: Confirmed By:EUSEBIO KENDRICK MD
--- NOTE | 2020-11-16 08:57 | EDS_ITS ---
HPI History of Present Illness Chief Complaint: Palpitations Informant: patient and family Narrative Narrative: Patient is brought by a family member out of concern for his malaise/fatigue and blood pressure. She states that last month in October, he had some low blood pressure readings so his doctor removed him from his blood pressure medication altogether. Since then she has been watching it closely and fairly routinely. She has a log. Last night she had a blood pressure reading as he was sitting in his recliner ready for bed of 79/57. Later there was a reading of 97/60, and today there was a reading that was 181 systolic, and here it is in the 120s. The patient states he felt no lightheadedness or any other symptoms last night while he was lying and sitting. He has had no near syncopal or syncopal episodes. The family member states that he falls asleep often, but she does not know if he is falling asleep involuntarily. He states he takes naps on occasion. When asked how long this is been going on, no one can give me a straight answer, it sounds like it has been going on for a while. The patient states he is a little unsteady on his feet but that is due to chronic pain in his low back, and he confirms that the pain is the issue, no vertiginous symptoms or off balance. He urinates frequently but that is chronic. He denies any other new symptoms. [facility] Medical History Acute kidney failure Cancer Congestive heart failure (CHF) Heart block AV second degree Hydronephrosis Hypertension Kidney disease Kidney lesion, wales, left Lesion of left wales kidney Pleural effusion Trauma Waldenstrom macroglobulinemia Home Medications acyclovir 200 po.syringe PO BID 02/28/19 [History Last Taken 02/28/19] cholecalciferol (vitamin D3) 2,000 unit PO DAILY 02/28/19 [History Last Taken 02/28/19] finasteride 5 mg PO DAILY 02/28/19 [History Last Taken 02/27/19] furosemide 20 mg PO DAILY 02/28/19 [History Last Taken 02/28/19] losartan 100 mg PO DAILY 02/28/19 [History Last Taken Unknown] melatonin 10 mg PO QHS PRN PRN 02/28/19 [History Last Taken Unknown] tamsulosin 0.4 mg PO DAILY 02/28/19 [History Last Taken 02/28/19] Metoprolol Succinate 50 mg PO DAILY 01/17/20 [History Last Taken Unknown] dexamethasone [Decadron] 2 mg PO DAILY 11/16/20 [History Last Taken Unknown] [id number] [Centrum Silver] 1 tab PO DAILY 11/16/20 [History Last Taken Unknown] Allergy/AdvReac Type Severity Reaction Status Date / Time No Known Allergies Allergy Verified 11/16/20 08:28 Surgical History History of coronary artery stent placement Social History Smoking Status: Never smoker ROS ROS ED Constitutional Constitutional ED: Reports fatigue; Denies body ache(s), chills or fever(s) Eyes Eyes: Denies change in vision or diplopia ENT ENT ED: Denies rhinorrhea or sore throat Cardiovascular Cardiovascular: Denies chest pain, orthopnea, palpitations or pedal edema Respiratory/Chest Respiratory/Chest: Denies cough, dyspnea or orthopnea Gastrointestinal Gastrointestinal: Denies abdominal pain, diarrhea, nausea or vomiting Genitourinary Genitourinary ED: Reports nocturia and urinary frequency; Denies dysuria, hematuria or urinary incontinence Musculoskeletal Musculoskeletal: Reports back pain; Denies extremity pain or neck pain Integumentary Denies abscess or rash Neurologic Neurologic: Reports other Details: Occasional paresthesias in the feet bilaterally, chronic ; Denies headache(s) or weakness Psychiatric Psychiatric: Denies anxiety or suicidal thoughts EXAM Physical Exam Const Vital Signs: 11/16/20 08:25 11/16/20 08:36 11/16/20 09:43 Temperature 98.6 F Temperature Source Temporal Pulse Rate 94 90 81 Respiratory Rate 18 20 H 19 H Respiratory Effort Normal Respiratory Pattern Normal Blood Pressure 129/70 H 141/64 H 135/65 H Blood Pressure Mean 89 89 88 Pulse Ox 95 93 95 Oxygen Delivery Method Room Air Room Air Room Air Positive well nourished and well developed General Appearance ED: well developed and NAD HEENT Reports moist mucous membranes normocephalic and atraumatic Eyes PERRL and EOMs intact bilaterally Neck full ROM and supple Resp normal respiratory effort and clear to auscultation bilaterally Cardio regular rate, regular rhythm and no murmurs Cardio Narrative: Occasional irregularity/pause Jugular Venous Distention: Negative for JVD Rate: Negative for bradycardia or tachycardic GI non-tender and non-distended Auscultation: normoactive bowel sounds Palpation: soft Back/Spine no CVA tenderness General Back: other FROM Extremity normal to inspection General Extremety ED: Negative for edema, pulses abnormal or tenderness General Extremity: Negative for edema or pulses abnormal Neuro oriented x3, CN's II-XII intact bilaterally and no sensory deficits noted Sensorium / Orientation: awake and alert Motor Exam: strength 5/5 throughout Skin no rashes or lesions noted and no wounds MDM MDM MDM Narrative Medical decision making narrative: It is noted patient has a history of Waldenstrom macroglobulinemia, this may be contributing to the very few immature granulocytes that are seen on his work-up, he has had mild leukocytosis similar to 12.9 in the past. This is nonspecific, he has no signs of infection clinically, his urine shows 100 leukocyte Estrace with few white blood cells, unlikely represents acute infection but given his symptoms and possibly poor bladder emptying with enlarged prostate, will send for culture and recommend that he follow-up with his urologist he does have one in [place]. Renal insufficiency is chronic and stable. At this time his blood pressures remained stable here, the last one 135/65, and I feel at this time he is stable for discharge home close outpatient follow-up. Discussed with the patient he is comfortable with that plan. Lab Data Attestation: I reviewed the patient's lab results. Labs: Laboratory Results - last 24 hr 11/16/20 11/16/20 11/16/20 08:40 08:40 08:40 WBC 12.9 H RBC 3.81 L Hgb 11.7 L Hct 36.4 L MCV 95.5 H MCH 30.7 MCHC 32.1 RDW Std Deviation 53.7 H RDW Coeff of So 15.2 H Plt Count 210 MPV 10.9 Immature Gran % (Auto) 1.900 H Neut % (Auto) 85.3 H Lymph % (Auto) 5.6 L Jerome % (Auto) 6.9 Eos % (Auto) 0.1 Baso % (Auto) 0.2 Absolute Neuts (auto) 11.0 H Absolute Lymphs (auto) 0.72 L Nucleated RBC % 0 Sodium 141 Potassium 3.6 Chloride 109 H Carbon Dioxide 26.0 Anion Gap 6 BUN 39 H Creatinine 1.78 H Estim Creat Clear Calc 30.42 Est GFR (MDRD) Af Amer 47 L Est GFR (MDRD) Non-Af 39 L BUN/Creatinine Ratio 21.9 H Glucose 146 H Calcium 8.6 Troponin I 0.035 Urine Color Yellow Urine Clarity Clear Urine pH 6.0 Ur Specific [place] 1.015 Urine Protein Negative Urine Glucose (UA) Normal Urine Ketones Negative Urine Occult Blood 25 H Urine Nitrite Negative Urine Bilirubin Negative Urine Urobilinogen Normal Ur Leukocyte Esterase 100 H Urine RBC 0 SEEN Urine WBC 0-5 SEEN Ur Squamous Epith Cells 0-5 SEEN Urine Bacteria RARE Urine Mucus 0 SEEN EKG Initial EKG: Attestation: I personally reviewed and interpreted this EKG as follows: Interpretation: Sinus Rhythm, No Acute Injury Pattern, RBBB, Inverted T- Waves (Across precordium except V6) and - (Nonconducted PAC. Inferior Q waves.) Prior EKG tracings: available for review Prior: Unchanged (Except no evidence of AVB now) Discharge Plan Triage Chief Complaint: Palpitations ED Provider: Juan Marshall Dx/Rx/DC Orders Clinical Impression: Fatigue, Transient hypotension Instructions: ED Weakness (Uncertain Cause) Prescriptions: No Action acyclovir 200 MG capsule 200 po.syringe PO BID RF: 0 tamsulosin 0.4 MG capsule 0.4 mg PO DAILY RF: 0 furosemide 20 MG tablet 20 mg PO DAILY RF: 0 losartan 100 MG tablet 100 mg PO DAILY RF: 0 finasteride 5 mg tablet 5 mg PO DAILY RF: 0 cholecalciferol (vitamin D3) 2,000 UNIT capsule 2,000 unit PO DAILY RF: 0 melatonin 10 MG capsule 10 mg PO QHS PRN PRN (Reason: Sleep) RF: 0 Metoprolol Succinate 25 MG Tab.Er.24h 50 mg PO DAILY RF: 0 dexamethasone [Decadron] 4 mg Tablet 2 mg PO DAILY RF: 0 Centrum Silver Tablet 1 tab PO DAILY RF: 0 Primary Care Provider: Jessica Collins NP Referrals: Jessica Collins CERTIFIED PEER SPECIALIST, CERTIFIED PEER SPECIALIST-C [Primary Care Provider] - 3-5 Days if not improving (And/or your urologist if your having worsening urinary issues) Activity Restrictions/Additional Instructions: Urine culture was sent, if positive you will receive a call from us within a couple days Disposition Disposition: Home, self care
[2020-11-16 09:10] LABS: Mucous, Urine 0 SEEN /hpf (<or=2+); Red Blood Cells-Urine 0 SEEN /hpf (0-5)
[2020-11-16 09:18] LABS: Absolute Lymphocyte Count 0.72 X10^3/uL (0.83-4.51); Basophil# 0.02 X10^3/uL; Basophil% 0.2 % (0-1); Color, Urine Yellow (Yellow); Eosinophil# 0.01 X10^3/uL; Eosinophils% 0.1 % (0-5); Glucose, Dipstick Normal (Normal); Hematocrit 36.4 % (40-54); Hemoglobin 11.7 g/dL (13.0-16.5); Ketone-Dipstick Negative (Negative); Leukocyte Esterase-Dipstick 100 /ul (Negative); Lymphocyte # 0.72 X10^3/ul (0.83-4.51); Lymphocyte % 5.6 % (19-41); Mean Corp Hgb Conc 32.1 g/dL (32-36); Mean Corpuscular Hgb 30.7 pg (27.0-32.0); Mean Corpuscular Volume 95.5 fL (80-94); Mean Platelet Vol. 10.9 fl (6.2-12.0); Monocyte# 0.89 X10^3/uL; Monocyte% 6.9 % (0-10); NRBC Flagged by Analyzer 0 % (0-5); Neutrophil % 85.3 % (47-70); Nitrite-Dipstick Negative (Negative); Occult Blood-Urine 25 /ul (Negative); Platelet Count 210 K/mm3 (150-450); Protein-Dipstick Negative (Negative); RBC Distribution Width CV 15.2 % (11.6-14.6); RBC Distribution Width SD 53.7 fl (35.1-43.9); Red Blood Count 3.81 M/mm3 (4.6-6.2); Specific Gravity, Urine 1.015 (1.002-1.030); Urine Bilirubin Dipstick Negative (Negative); Urine Clarity Clear (Clear); Urine Urobilinogen Normal (Normal); White Blood Count 12.9 K/mm3 (4.4-11.0)
[2020-11-16 09:25] LABS: Bacteria RARE /hpf (None Seen); Squamous Epithelial Cells - UA 0-5 SEEN /hpf (0-5); White Blood Cells 0-5 SEEN /hpf (0-5)
[2020-11-16 09:30] LABS: Anion Gap 6 (5-15); BUN 39 mg/dL (7-18); BUN/Creat Ratio 21.9 RATIO (10-20); Calcium,Total 8.6 mg/dL (8.5-10.1); Chloride 109 mmol/L (98-107); Creatinine, Serum 1.78 mg/dL (0.70-1.30); EST Glomerular Filtration Rate 39 mL/min (>60); Est Glom Filt Rate - Afr Amer 47 mL/min (>60); Estimated Creatinine Clearance 30.42 ml/min; Glucose 146 mg/dL (74-106); Potassium 3.6 mmol/L (3.5-5.1); Sodium Level 141 mmol/L (136-145)
[2020-11-16 09:43] VITALS: BP 135/65; PULSE 81; RESP 19; O2SAT 95
[2020-11-16 10:35] VITALS: BP 141/20; PULSE 85; RESP 16; O2SAT 96
== END 2020-11-16 10:36 | disposition home or self-care (01) ==
PROVIDERS: Emergency Provider Emergency Medicine; PCP Nurse Practitioner
DX: R53.83 Other fatigue (principal); I95.9 Hypotension, unspecified; I11.0 Hypertensive heart disease with heart failure; I50.9 Heart failure, unspecified; Z79.899 Other long term (current) drug therapy
CPT/HCPCS: 80048; 81001; 84484; 85025; 93005; 99283; A4216

== ENCOUNTER → 2022-02-20 | Outpatient (CLI) | payer MEDICARE, SELFPAY ==
[2020-06-21 12:40] VITALS: BMI 26.3
[2022-02-20 12:50] VITALS: PULSE 101; PULSE 102; PULSE 103; PULSE 83; PULSE 86; PULSE 89; PULSE 91; PULSE 98; O2SAT 91; O2SAT 92; O2SAT 95; O2SAT 96
--- NOTE | 2022-02-23 10:44 | PCM.PSN.6M ---
PSN 6 Minute Walk Test 6 Minute Walk Test 6 Minute Walk Test: 6 Minute Walk Test PSN:6-Minute Walk Test Start: 02/20/22 12:50 Freq: Status: Active Protocol: [id number].6MINW Document 02/20/22 12:50 [facility] (Rec: 02/20/22 12:55 [facility] [id number]) 6 Minute Walk Test Date Performed 02/20/22 Time Performed 12:30 Height 5 ft 6 in Weight: 81.193 kg Weight in Pounds 179.[address]: [facility] Assistive device used: None Pre-test Oxygen Delivery Method Room Air Pulse Ox (%) 95 Pulse Rate (60-100 beats/min) 83 Dyspnea Nora Scale (0-10) 0 1st minute Oxygen Delivery Method Room Air Pulse Ox (%) 92 Pulse Rate (60-100 beats/min) 89 Dyspnea Nora Scale (0-10) 0 Number of Rests Taken 0 2nd minute Oxygen Delivery Method Room Air Pulse Ox (%) 91 Pulse Rate (60-100 beats/min) 91 Dyspnea Nora Scale (0-10) 0 Number of Rests Taken 0 3rd minute Oxygen Delivery Method Room Air Pulse Ox (%) 91 Pulse Rate (60-100 beats/min) 98 Dyspnea Nora Scale (0-10) 0 Number of Rests Taken 0 4th minute Oxygen Delivery Method Room Air Pulse Ox (%) 92 Pulse Rate (60-100 beats/min) 102 H Dyspnea Nora Scale (0-10) 0 Number of Rests Taken 0 5th minute Oxygen Delivery Method Room Air Pulse Ox (%) 92 Pulse Rate (60-100 beats/min) 101 H Dyspnea Nora Scale (0-10) 0 Number of Rests Taken 0 6th minute Oxygen Delivery Method Room Air Pulse Ox (%) 92 Pulse Rate (60-100 beats/min) 103 H Dyspnea Nora Scale (0-10) 0 Number of Rests Taken 0 Post-test Oxygen Delivery Method Room Air Pulse Ox (%) 96 Pulse Rate (60-100 beats/min) 86 Dyspnea Nora Scale (0-10) 0 Full Laps Walked 17 Partial Lap, Number of Tiles Walked 32 Total Distance Walked (ft) 1035 Interpretation Interpretation: Patient was noted to be 95% on room air, but did have significant desaturation as low as 91% with ambulation. Patient did have an element of reflexive tachycardia. In total, the patient traveled 1035 feet over the course of 6 minutes on room air with no assistive devices or breaks. These findings are consistent with a respiratory limitation exercise tolerance. Recommendations Recommendations: No supplemental oxygen is indicated at this time. However, patient will need to be followed closely given level of desaturation.
== END | disposition home or self-care (01) ==
LOC: PSN 12:21
PROVIDERS: PCP Nurse Practitioner Family; Referring Provider Nurse Practitioner Family; Visit Provider Nurse Practitioner Family
DX: R09.02 Hypoxemia (principal)
CPT/HCPCS: 94618

== ENCOUNTER → 2022-02-23 | Outpatient (CLI) | payer MEDICARE, SELFPAY ==
[2020-06-21 12:40] VITALS: BMI 26.3
--- NOTE | 2022-02-23 13:45 | PFTCOMP_ITS ---
COMPLETE PULMONARY FUNCTION TEST INTERPRETATION Brief HPI: Patient is a 86-year-old male, currently under the care of Allyson Davis, who presents to [facility] for complete pulmonary function tests secondary to diagnosis of hypoxia. Respiratory therapist reports good effort and reproducible results. Interpretation: Forced expiration spirometry shows no large airways obstructive ventilatory defect with an FEV1 of 96% predicted. There is no significant bronchodilator response by strict ATS criteria. Spirograms are of good quality and plateau normally. The respiratory flow volume loop shows a normal pattern. Lung volumes by body plethysmography show total lung capacity at at the lower limit of normal at 4.32 L, 81% predicted. All other lung volumes are reduced symmetrically. Diffusion capacity by carbon monoxide is normal at 84% predicted. The airway resistance is normal. No previous pulmonary function tests were available for review. Impression: Grossly normal pulmonary function test, but lung volumes are at the lower limit of normal. Cannot exclude early restrictive disease or CHF
== END | disposition home or self-care (01) ==
PROVIDERS: PCP Nurse Practitioner Family; Referring Provider Nurse Practitioner Family; Visit Provider Nurse Practitioner Family
DX: R09.02 Hypoxemia (principal)
CPT/HCPCS: 94060; 94726; 94729

== ENCOUNTER → 2022-05-28 | Outpatient (CLI) | payer MEDICARE, SELFPAY ==
[2020-06-21 12:40] VITALS: BMI 26.3
--- NOTE | 2022-05-28 15:34 | VDUE_ITS ---
Reason For Study: Swelling Left Proximal Left jugular vein is spontaneous, widely patent, phasic, with no intraluminal echogenicity noted. Left subclavian vein is spontaneous, widely patent, phasic, with no intraluminal echogenicity noted. Left Arm Left axillary vein is spontaneous, patent, phasic, competent, compressible and demonstrates augmentation. Left brachial vein is compressible. Left cephalic vein is compressible. Left basilic vein is compressible. Left Lower Arm Left radial vein is compressible. Left ulnar vein is compressible. Patient Safety Preliminary report sent to Dr. Cain. VL/Venous Duplex US, Unilateral Interpretation Summary Deep veins of the left upper extremity are patent and compressible segmentally. There is no evidence of deep vein thrombosis. Left cephalic and basilic veins appear patent and comp ressible segmentally. Ordering Physician: Edwina Cain Referring Physician: Allyson Davis Performed By: Maria Dolores Grullon RVT ???
== END | disposition home or self-care (01) ==
LOC: CVS 15:32
PROVIDERS: PCP Nurse Practitioner Family; Referring Provider Internal Medicine; Visit Provider Internal Medicine
DX: M79.89 Other specified soft tissue disorders (principal)
CPT/HCPCS: 93971

== ENCOUNTER 2022-10-21 14:30 | Outpatient (RCR) | payer MEDICARE, SELFPAY ==
[2020-06-21 12:40] VITALS: BMI 26.3
--- NOTE | 2022-09-10 16:29 | HP.PTEVAL ---
Patient's Visit Information UZAIR GIRON is a 87 year old M referred to Physical Therapy by Allyson Davis, ANDRES-C with a diagnosis of LBP, hip pain. Date of Evaluation: 09/10/22 Physical Therapist: Michael Davis, DPT, OCS, CSCS - Visit Plan Frequency: 2x /Week Duration: 4-6 Weeks Plan: 2x/week for 4 weeks for. 1. rollout and stretch HS and psoas and quads and ensure home stretching(will need to add HS). 2. LB ROM exercises. 3. General strength ex to HEP - Subjective Biggest problem is back pain. it is pretty screwed up with a crooked spine etc. Was in hospital in May with UTI and got into blood stream. [facility] 6 weeks with PT. Had home therapy after that which . Has home exercises to continue(marching, hip abduction, heel raises). Has years of back and chriopractic. Uses lift in L shoe. Back is comfortable at rest. It hurts. Pain with walking is worse. Has had to slow down with activity due to this. 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 Sleep is not interrupted due to back pain, 2 hours at a time. Leg symptoms: not lately. Been through pain management, had injections which did not help much. educational specialist took x ray in [facility] in hospital. May have ligament torn in L hip. No other regular exercises. Spends day in office, not overly active. Standing an hour is tough. - Pain LBP) Pain Intensity (Out of 10): 0 Pain Intensity Range: 0, 5 - Objective Walks hunched over 15 degrees and short steps 1/2 of his foot length into therapy I . 300 feet today and 3/10 pain, gone with sitting.Trasnfers I. LB AROM is max limited in extension barely to neutral and tight in back and anterior hips. SB mod limited, flexion mod limited. HS and quads and psoas max tight, piriformis and ITB mod tight. -55 90/90 test HS. - slum. - SLR. reflexes 2/3 patella and achilles. Sensation LE WNL to gross lgiht touch. Strength LE 4/5 hips, 4+ knees and 4+ anklees without myotomal problems. very poor pelvic motion and lumbar/spinal motion. Moves slow and sedentary at home and with job over last 67 years. - Balance/Special Test Scores Oswestry Low Back Score: 17 - Goals Goal 1:: I approp HEP for LB motion , upper leg stretching and general strength to limit future problems Goal Time Frame: 4-6 Weeks Goal 2:: Patient able to ambulate 400 feet without increased pain in LB Goal Time Frame: 4-6 Weeks Goal 3:: Pt feel 50% shantal roverall in mobility. Goal Time Frame: 4-6 Weeks Goal 4:: oswestry 10 or better Goal Time Frame: 4-6 Weeks - Rehabilitation Potential Rehabilitation Potential: Fair - Anticipated Interventions Patient/Client Instruction: Educate patient on: Condition, Plan of Care For the Purpose of:: To decrease pain, To increase ROM, To improve nutrient delivery to tissue, To improve muscle performance and motor function Therapeutic Exercise to Include: Strength training, Postural training, Flexibilty training, Passive ROM, Active ROM For the Purpose of:: To improve muscle performance and motor function, To increase tolerance to activity/condition/position Manual Therapy Techniques to Include: Mobilization, Passive ROM, Soft tissue mobilization For the Purpose of:: To decrease pain, To increase ROM, To improve nutrient delivery to tissue, To improve muscle performance and motor function, To increase tolerance to activity/condition/position, To improve ability of physical actions for home/community/work/leisure Thank you for the opportunity to evaluate your patient. For Medicare and Medicare HMO plans, please review the plan of care and approve it. It will need to be FAXED BACK to us at [phone] for Medicare purposes. For Medicare only, by signing this I certify the plan of care. Please let me know if there are questions or concerns regarding this plan of care. Physician Signature: Date:
--- NOTE | 2022-10-01 13:24 | HP.PTREVAL ---
Allyson Davis, ANDRES-C, It has been my pleasure to treat UZAIR GIRON over the last 7 visits for LBP, hip pain. Please see the progress note below for an update on the physical therapy plan of care! Subjective: Getting better. Been doing his exercises mostly at home standing and lying down. Added half inch lift to L shoe which helps him walk straighter. Back pain is low at 1/10, still worse if stands too long. Better sitting. Can walk about 300-400 feet. Wants to continue PT, will do HEP. Objective/Function: Walks 400 feet today without incresed pain in back and good balance. Plan Plan: 2x/week for 2 weeks to help patient ensure compliance with HEP and please teach gym based LE adn postural/core strength to progress to community gym. Balance/Gait/Functional tests - Balance/Special Test Scores Functional Gait Assessment Score: 25 % Disability: 16.6700 Oswestry Low Back Score: 20 Lower Extremity Functional Score: 40 Goals Goal 1:: I approp HEP for LB motion , upper leg stretching and general strength to limit future problems Goal Time Frame: 4-6 Weeks Goal Progress: home, wants gym Goal 2:: Patient able to ambulate 400 feet without increased pain in LB Goal Time Frame: 4-6 Weeks Goal Progress: Goal Met Goal 3:: Pt feel 50% shantal roverall in mobility. Goal Time Frame: 4-6 Weeks Goal Progress: 30% Goal 4:: oswestry 10 or better Goal Time Frame: 4-6 Weeks Goal Progress: Progressing Goal 5:: I community gym program to help maintain improvements Goal Time Frame: 2-4 Weeks Goal Progress: NEW GOAL Anticipated Interventions Patient/Client Instruction: Educate patient on: Condition, Plan of Care For the Purpose of:: To decrease pain, To increase ROM, To improve nutrient delivery to tissue, To improve muscle performance and motor function Therapeutic Exercise to Include: Strength training, Postural training, Flexibilty training, Passive ROM, Active ROM For the Purpose of:: To improve muscle performance and motor function, To increase tolerance to activity/condition/position Manual Therapy Techniques to Include: Mobilization, Passive ROM, Soft tissue mobilization For the Purpose of:: To decrease pain, To increase ROM, To improve nutrient delivery to tissue, To improve muscle performance and motor function, To increase tolerance to activity/condition/position, To improve ability of physical actions for home/community/work/leisure Please do not hesitate to contact me at [phone] by phone or if you have questions or concerns regarding this new plan of care! Sincerely, Michael Davis, DPT, OCS, CSCS
--- NOTE | 2022-10-21 14:59 | HP.PTDCSUM ---
It has been my pleasure to treat UZAIR GIRON referred by Allyson Davis, ANDRES-C, with the diagnosis of LBP, hip pain for a total of 11 visit(s). Discharge Date: 10/21/22 Please see the following information for a summary of their discharge status. Subjective: Doing Ok without pain and feels like he could possibly continue himself after today's visit I. LBP) Pain Intensity (Out of 10): 2 % Improvement: 40 Objective/Function: Pt needing some cues today but adamant that he wants to try on his own vs schedule more. Doing well otherwise. Goal 1:: I approp HEP for LB motion , upper leg stretching and general strength to limit future problems Goal Progress: met Goal 2:: Patient able to ambulate 400 feet without increased pain in LB Goal Progress: Goal Met Goal 3:: Pt feel 50% shantal roverall in mobility. Goal Progress: 40 Goal 4:: oswestry 10 or better Goal Progress: Progressing Goal 5:: I community gym program to help maintain improvements Goal Progress: Goal Met Plan: d/c at patient request, will join and continue I. List of exercises given adn taught set up today. If there are questions or concerns regarding this patient's physical therapy, please feel free to call me at [phone]. Thank you for the referral of this patient. Sincerely, Michael Davis, DPT, OCS, CSCS Balance/Gait/Functional tests - Balance/Special Test Scores Functional Gait Assessment Score: 25 % Disability: 16.6700 Oswestry Low Back Score: 20 Lower Extremity Functional Score: 40
== END 2022-10-21 19:00 | disposition home or self-care (01) ==
LOC: PT 14:30
PROVIDERS: PCP Nurse Practitioner Family; Referring Provider Nurse Practitioner Family; Visit Provider Nurse Practitioner Family
DX: M54.50 Low back pain, unspecified (principal); M25.551 Pain in right hip; M79.606 Pain in leg, unspecified
CPT/HCPCS: 97110; 97140; 97162; 97530

== ENCOUNTER → 2023-02-01 | Outpatient (CLI) | payer MEDICARE, SELFPAY ==
[2020-06-21 12:40] VITALS: BMI 26.3
[2023-01-20 10:54] LABS: CREATININE FINGERSTICK 1.5 mg/dL (0.70-1.30)
--- NOTE | 2023-02-01 07:45 | MRI_ITS ---
EXAM: MR HEAD WITHOUT AND WITH INTRAVENOUS CONTRAST, INTERNAL AUDITORY CANAL PROTOCOL CLINICAL INDICATION: BILATERAL TINNITUS TECHNIQUE: Multiplanar and multisequence MR images of the internal auditory canal were obtained without and with intravenous contrast. CONTRAST: IV 15 cc Clariscan COMPARISON: CT brain 01/17/2020 FINDINGS: CRANIAL NERVES: Normal. No mass. No abnormal enhancement. COCHLEA AND SEMICIRCULAR CANALS: Normal. CEREBELLOPONTINE ANGLES: Normal. No mass. BRAIN AND EXTRA-AXIAL SPACES: Increased T2 signal intensity within the cerebral white matter suggestive of chronic microvascular change. No abnormal contrast enhancement. No intra- or extra-axial hemorrhage. No intracranial mass or mass effect. There is preservation of the carlton/white matter interface. Posterior fossa structures are unremarkable. Ventricles are appropriate for age. No hydrocephalus. Basal cisterns are patent. BONES/JOINTS: Normal. No discrete lytic or blastic abnormalities. SINUSES: Unremarkable as visualized. Clear. MASTOID AIR CELLS: Partial opacification of the mastoid sinuses. ORBITS: Unremarkable as visualized. Both globes, extraocular muscles, optic nerves and retrobulbar fat appear unremarkable. MRI/Brain W/WO Contrast IMPRESSION: 1. Normal internal auditory canals. 2. Bilateral mastoid effusions. 3. Chronic microvascular changes. Electronically Signed: Max Weldon MD at 10:34 EDT ,
== END | disposition home or self-care (01) ==
LOC: MRI 07:17
PROVIDERS: PCP Nurse Practitioner Family; Referring Provider Otolaryngology; Visit Provider Otolaryngology
DX: H90.3 Sensorineural hearing loss, bilateral (principal)
CPT/HCPCS: 70553; A9575

== ENCOUNTER → 2024-08-22 | Outpatient (CLI) | payer MEDICARE, SELFPAY ==
[2020-06-21 12:40] VITALS: BMI 26.3
--- NOTE | 2024-08-22 16:25 | RAD_ITS ---
PROCEDURE: CHEST PA AND LATERAL (RADCXR), 08/22/2024 REASON FOR EXAM: FEVER AND CHILLS TECHNIQUE: PA and lateral views of the chest were obtained. COMPARISON: 10/14/2023. Only the images are available for review, the report is not available at the time of dictation. FINDINGS: Heart: Partially obscured, grossly unremarkable. Mediastinum: Mild atherosclerosis in the aortic arch. Lungs/pleura: Trace to small pleural effusions, slightly decreased on the left. Similar streaky bibasilar opacities. No visible pneumothorax. Bones: Degenerative changes of the left shoulder are partially imaged.. Mild thoracic dextroscoliosis. Lines and support devices: Interval placement of a presumably tunneled right basilar chest tube. RAD/Chest PA and Lateral IMPRESSION: 1. Trace to small pleural effusions, slightly decreased on the left. 2. Similar streaky bibasilar opacities favorable for reflect atelectasis/scarri ng however superimposed pneumonia cannot be excluded given the context. 3. Additional description as above. Reading Location: [id number]
[2024-08-22 16:29] LABS: Bacteria 0 SEEN /hpf (None Seen); Mucous, Urine 0 SEEN /hpf (<or=2+); Squamous Epithelial Cells - UA 0 SEEN /hpf (0-5); White Blood Cells 0 SEEN /hpf (0-5)
[2024-08-22 17:51] LABS: Absolute Lymphocyte Count 0.82 X10^3/uL (0.83-4.51); Absolute Neutrophil Count 0.7 X10^3/uL (2.0-7.7); Basophil# 0.03 X10^3/uL; Basophil% 1.5 % (0-1); Eosinophil# 0.02 X10^3/uL; Hematocrit 40.5 % (40-54); Hemoglobin 13.7 g/dL (13.0-16.5); Lymphocyte # 0.82 X10^3/ul (0.83-4.51); Lymphocyte % 41.2 % (19-41); Mean Corp Hgb Conc 33.8 g/dL (32-36); Mean Corpuscular Hgb 31.6 pg (27.0-32.0); Mean Corpuscular Volume 93.3 fL (80-94); Mean Platelet Vol. 11.4 fl (6.2-12.0); Monocyte# 0.41 X10^3/uL; Monocyte% 20.6 % (0-10); NRBC Flagged by Analyzer 0 % (0-5); Neutrophil # 0.71 X10^3/uL (2.7-7.7); Neutrophil % 35.7 % (47-70); POSITIVE DIFFERENTIAL YES; Platelet Count 129 K/mm3 (150-450); RBC Distribution Width CV 14.8 % (11.6-14.6); RBC Distribution Width SD 51.6 fl (35.1-43.9); Red Blood Count 4.34 M/mm3 (4.6-6.2)
[2024-08-22 18:02] LABS: Differential Indicated SCAN CRITERIA MET
[2024-08-22 18:28] LABS: Anisocytosis RARE; Macrocytosis RARE; Platelet Estimate SLT DEC (ADEQ); Red Cell Morphology N CHROM NORMAL (NORM C&C)
[2024-08-22 18:39] LABS: Pro- Brain NATRIURETIC PEPTIDE 262 pg/mL (<=1800)
[2024-08-22 18:41] LABS: Lactic Acid 1.1 mmol/L (0.0-2.0)
[2024-08-22 18:44] LABS: Color, Urine Yellow (Yellow); Glucose, Dipstick Normal (Normal); Ketone-Dipstick Negative (Negative); Leukocyte Esterase-Dipstick Negative /ul (Negative); Nitrite-Dipstick Negative (Negative); Occult Blood-Urine Negative /ul (Negative); Protein-Dipstick 30 mg/dl (Negative); Red Blood Cells-Urine 0 SEEN /hpf (0-5); Specific Gravity, Urine 1.015 (1.002-1.030); Transitional Epithelial - Ur 0-5 SEEN /hpf (0-5); Urine Bilirubin Dipstick Negative (Negative); Urine Clarity Clear (Clear); Urine Urobilinogen Normal (Normal)
[2024-08-22 18:45] LABS: Amorphous Sediment 1+ URATE
== END | disposition home or self-care (01) ==
LOC: MTLAB 16:23
PROVIDERS: PCP Nurse Practitioner Family; Referring Provider Nurse Practitioner Family; Visit Provider Nurse Practitioner Family
DX: I95.9 Hypotension, unspecified (principal); R50.9 Fever, unspecified
CPT/HCPCS: 36415; 71046; 81001; 83605; 83880; 85025; 87086; 87088

== ENCOUNTER 2024-12-10 21:00 | Inpatient (IN) | payer MEDICARE, SELFPAY ==
[2020-06-21 12:40] VITALS: BMI 26.3
[2024-12-10 21:00] VITALS: BP 148/71; PULSE 106; RESP 20; TEMP 39.4; O2SAT 92; BMI 26.9
--- NOTE | 2024-12-10 21:08 | EKG12_ITS ---
Test Reason : DYSRHYTHMIA Blood Pressure : */* mmHG Vent. 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
--- NOTE | 2024-12-10 21:19 | EDS_ITS ---
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 Patient denies any sick contacts. [facility] Medical History (Updated 12/11/24 @ 00:[address] Koki Begum MD) Former tobacco use CAD (coronary artery disease) Benign prostatic hyperplasia Lymphoma CKD (chronic kidney disease), stage III Cancer Congestive heart failure (CHF) Hypertension Lesion of left [place] kidney Heart block AV second degree Trauma Waldenstrom macroglobulinemia Home Medications ?Medication ?Instructions ?Recorded ?Last Taken ?Type acyclovir 200 mg capsule 200 po.syringe PO BID ANTIVI RAL 02/28/19 02/28/19 History cholecalciferol (vitamin D3) 50 2,000 unit PO DAILY DAILY PPLEMENT 02/28/19 02/28/19 History mcg (2,000 unit) capsule finasteride 5 mg tablet 5 mg PO DAILY PROSTATE 02/2802/27/19 History furosemide 20 mg tablet 20 mg PO DAILY WATER PILL 02/28/19 History losartan 100 mg tablet 100 mg PO DAILY 02/28/19 Unk nown History melatonin 10 mg capsule 10 mg PO QHS PRN PRN Sleep 0 02/28/19 Unknown History tamsulosin 0.4 mg capsule 0.4 mg PO DAILY BLOOD PRESSU RE 02/28/19 02/28/19 History Metoprolol Succinate 50 mg PO DAILY 01/17/20 Unkn own History dexamethasone 4 mg tablet 2 mg PO DAILY 11/16/20 Unkno wn History (Decadron) wjwbiutqfznc-ushltaoz-huukzk tablet 1 tab PO DAILY 11/01 Unknown History Allergy/AdvReac Type Severity Reaction Status Date / Time No Known Allergies Allergy Verified 12/10/24 21:04 Family History (Updated 12/11/24 @ 00:[address] Koki Begum MD) Father Cancer Surgical History (Updated 12/11/24 @ 00:[address] Koki Begum MD) History of back surgery History of coronary artery stent placement Social History Smoking Status: Never smoker ROS ROS ED ROS Narrative Constitutional: Denies any headaches, lightness, dizziness Eyes: Denies changes vision double vision blurry vision Cardiovascular: Denies chest pain Respiratory: Denies cough wheezing shortness of breath Abdomen: Denies abdominal pain nausea vomiting diarrhea : Denies any urinary symptoms Neurological: Denies any numbness, weakness, tingling Musculoskeletal: Denies back pain Skin: Denies any rashes or lesions EXAM Physical Exam Narrative Exam Narrative: General: Patient lying in bed was completed operatively acute stress Head: Atraumatic, normocephalic Eyes: PERRL bilaterally, EOMI blood, no conjunctival injection noted, mucous membranes dry Neck: Soft, supple, trach midline Cardiovascular: Patient tachycardic with regular rhythm Respiratory: Clear to auscultation bilaterally Abdomen: Soft, nondistended, tender to palpation Extremities: +4/5 strength noted in bilateral upper and lower extremities, no pedal edema on exam Neurological: Patient following commands knew that he was at [facility] year is 2024 Skin: Warm, dry, intact no rashes or lesions noted Const Vital Signs: 12/10/24 21:00 12/10/24 21:27 12/10/24 21:27 Temperature 103 F H 103 F H Temperature Source Oral Oral Pulse Rate 106 H 105 H Respiratory Rate 20 H 35 H Respiratory Effort Respiratory Pattern Blood Pressure 148/71 H 141/65 H Blood Pressure Mean 96 90 Pulse Ox 92 91 Oxygen Delivery Method Room Air Room Air Room Air 12/10/24 21:27 12/10/24 22:04 12/10/24 22:29 Temperature 103 F H 102.9 F H Temperature Source Oral Oral Pulse Rate 108 H 99 Respiratory Rate 33 H 28 H Respiratory Effort Normal Non-Labored Respiratory Pattern Normal Blood Pressure 144/78 H 136/78 H Blood Pressure Mean 100 97 Pulse Ox 90 90 Oxygen Delivery Method Room Air Room Air 12/10/24 23:00 12/10/24 23:01 12/11/24 00:00 Temperature 102.9 F H 102.9 F H 100.5 F H Temperature Source Oral Oral Pulse Rate 93 93 90 Respiratory Rate 22 H 22 H 28 H Respiratory Effort Respiratory Pattern Blood Pressure 123/59 H 123/59 H 102/89 H Blood Pressure Mean 80 80 93 Pulse Ox 90 90 90 Oxygen Delivery Method Room Air Room Air MDM MDM MDM Narrative Medical decision making narrative: Patient is a 89-year-old male who presented to the emergency department the chief complaint generalized weakness. On the differential diagnosis includes but normal to UTI, pneumonia, ACS, electro abnormality. Once workup is obtained reviewed he will be reevaluated. Patient will not be given 30 cc/kg bolus of IV fluids as he has a history of heart failure. Patient was febrile he was given a gram of Tylenol. Patient's CBC was significant for leukocytosis of 11,000, hemoglobin 13.6, platelet count of 280. Patient's INR normal 1.1, PT of 14.5. Patient sodium was 137, potassium normal at 3.5, creatinine elevated 1.52 however he has underlying chronic kidney disease this appears to be around his baseline. Patient AST and ALT were 21 and 16 respectively. Patient's urinalysis reviewed showed positive nitrates 25 leukocyte esterase 5-10 white cells with 1+ bacteria patient was given a gram of Rocephin at 2153. Patient's chest x-ray was reviewed which showed basilar airspace disease correlation for possible aspiration pneumonia. Patient's EKG reviewed showed sinus tachycardia with evidence of first-degree AV block with a CO interval of 250 QTc was noted be 425. Evidence of right bundle branch block noted On reevaluation the patient he is still febrile and generalized weakness with evidence of urinary tract infection however with the chest x-ray read will add a CT of his chest on for further evaluation management. Patient CT of the chest showed small bilateral effusions with adjacent compressive atelectasis concern for a right lower lobe consolidation to suggest pneumonia. Patient was ordered azithromycin at 2341. At this point time will discuss case with hospitalist for admission for pneumonia, UTI, generalized weakness and fever. Reperfusion assessment was performed at 12:10 AM he remains normotensive therefore no vasopressors indicated. Will start patient on IV fluids LR at 100 cc an hour Discussed case with hospitalist Dr. Begum who accept patient for admission. I notified the patient and the patient's significant other bedside all question concerns answered. Lab Data Labs: Laboratory Results - last 24 hr 12/10/24 12/10/24 21:00 21:32 WBC 11.1 H RBC 4.38 L Hgb 13.6 Hct 40.9 MCV 93.4 MCH 31.1 MCHC 33.3 RDW Std Deviation 51.7 H RDW Coeff of So 14.9 H Plt Count 280 MPV 10.7 Immature Gran % (Auto) 0.400 Neut % (Auto) 82.5 H Lymph % (Auto) 8.0 L [place] % (Auto) 7.1 Eos % (Auto) 1.6 Baso % (Auto) 0.4 Absolute Neuts (auto) 9.2 H Absolute Lymphs (auto) 0.89 Nucleated RBC % 0 PT 14.5 INR 1.1 APTT 27.3 Sodium 137 Potassium 3.5 Chloride 102 Carbon Dioxide 23.8 Anion Gap 11 BUN 19 Creatinine 1.52 H Estim Creat Clear Calc 32.01 L Est GFR (MDRD) Non-Af 44 L BUN/Creatinine Ratio 12.4 Glucose 100 H Lactic Acid 1.6 Calcium 9.5 Total Bilirubin 0.47 AST 21 ALT 16 Alkaline Phosphatase 89 Total Protein 7.5 Albumin 3.7 Globulin 3.8 Albumin/Globulin Ratio 1.0 Urine Color Red Urine Clarity Cloudy Urine pH 7.0 Ur Specific [place] 1.010 Urine Protein 100 H Urine Glucose (UA) Normal Urine Ketones 5 H Urine Occult Blood 250 H Urine Nitrite Positive H Urine Bilirubin Negative Urine Urobilinogen Normal Ur Leukocyte Esterase 25 H Urine RBC > 100 SEEN Urine WBC 5-10 SEEN Ur Squamous Epith Cells 0-5 SEEN Urine Bacteria 1+ Urine Mucus 0 SEEN Radiography Diagnostic Testing: Clinical Impression(s) from Imaging Studies Chest X-Ray 12/10/24 21:45 IMPRESSION: Bibasilar airspace disease. Correlate for possible aspiration pneumonia. Reading Location: [place] [address] Chest CTA 12/10/24 23:07 IMPRESSION: Small bilateral effusions with adjacent compressive atelectasis. Possible right lower lobe consolidation also. Correlate for possible aspiration. No embolism or dissection. Possible right-sided hydronephrosis. Consider ultrasound. Reading Location: [place] [address] Discharge Plan Triage Chief Complaint: Fatigue ED Provider: Lanre Stewart Dx/Rx/DC Orders Clinical Impression: Fever, Pneumonia, Urinary tract infection, Generalized weakness Prescriptions: No Action acyclovir 200 MG capsule 200 po.syringe PO BID Patient Comments: Take 1 capsule by mouth twice daily. tamsulosin 0.4 MG capsule 0.4 mg PO DAILY Patient Comments: Take 1 capsule by mouth twice daily. furosemide 20 MG tablet 20 mg PO DAILY Patient Comments: Take 2 tablets by mouth once daily. losartan 100 MG tablet 100 mg PO DAILY Patient Comments: Take 1 tablet by mouth once daily. finasteride 5 mg tablet 5 mg PO DAILY Patient Comments: 1 tablet by mouth daily cholecalciferol (vitamin D3) 2,000 UNIT capsule 2,000 unit PO DAILY melatonin 10 MG capsule 10 mg PO QHS PRN PRN (Reason: Sleep) Metoprolol Succinate 25 MG Tab.Er.24h 50 mg PO DAILY dexamethasone [Decadron] 4 mg Tablet 2 mg PO DAILY Rx Instructions: only on day of velcade injection and day after. Centrum Silver Tablet 1 tab PO DAILY Primary Care Provider: Allyson Davis Referrals: Allyson Davis, [employer]CHITECT-C [Primary Care Provider] - Print Language: Thai Disposition Disposition: Acute Care Hospital [facility]
[2024-12-10 21:27] VITALS: BP 141/65; PULSE 105; RESP 35; TEMP 39.4; O2SAT 91
[2024-12-10] MEDS: 0.9% Normal Saline (1000mL) 1,000 ML 999 ML IV (21:29)
[2024-12-10 21:39] LABS: Mucous, Urine 0 SEEN /hpf (<or=2+)
[2024-12-10 21:44] LABS: Color, Urine Red (Yellow); Glucose, Dipstick Normal (Normal); Ketone-Dipstick 5 mg/dl (Negative); Leukocyte Esterase-Dipstick 25 /ul (Negative); Nitrite-Dipstick Positive (Negative); Occult Blood-Urine 250 /ul (Negative); Protein-Dipstick 100 mg/dl (Negative); Specific Gravity, Urine 1.010 (1.002-1.030); Urine Bilirubin Dipstick Negative (Negative)
--- NOTE | 2024-12-10 21:45 | RAD_ITS ---
PROCEDURE: CHEST PA AND LATERAL 12/10/2024 REASON FOR EXAM: INCREASED WEAKNESS TECHNIQUE: CHEST PA AND LATERAL COMPARISON: 08/22/2024 FINDINGS: Rotated patient. Normal heart size. Status post coronary stenting. Right-sided chest tube remains in place. Under aerated lungs. Small bilateral effusions. Interval development of mid and lower lung zone airspace disease, likely atelectasis and consolidation. No pneumothorax. RAD/Chest PA and Lateral IMPRESSION: Bibasilar airspace disease. Correlate for possible aspiration pneumonia. Reading Location: [facility]
[2024-12-10 21:47] LABS: Red Blood Cells-Urine > 100 SEEN /hpf (0-5); Squamous Epithelial Cells - UA 0-5 SEEN /hpf (0-5)
[2024-12-10 21:50] LABS: Hematocrit 40.9 % (40-54); Hemoglobin 13.6 g/dL (13.0-16.5); Immature Granulocytes Count 0.050 X10^3/uL (0.0-0.0); Mean Corp Hgb Conc 33.3 g/dL (32-36); Mean Corpuscular Volume 93.4 fL (80-94); Mean Platelet Vol. 10.7 fl (6.2-12.0); NRBC Flagged by Analyzer 0 % (0-5); Platelet Count 280 K/mm3 (150-450); RBC Distribution Width CV 14.9 % (11.6-14.6); RBC Distribution Width SD 51.7 fl (35.1-43.9); Red Blood Count 4.38 M/mm3 (4.6-6.2); White Blood Count 11.1 K/mm3 (4.4-11.0)
[2024-12-10 21:58] LABS: Partial Thromboplast Time 27.3 Seconds (24.1-36.2); Prothrombin Time (Protime)PT. 14.5 SECONDS (11.7-14.9)
[2024-12-10 22:04] VITALS: BP 144/78; PULSE 108; RESP 33; TEMP 39.4; O2SAT 90
[2024-12-10 22:24] LABS: AST(SGOT) 21 U/L (<=37); Alanine Aminotransfer ALT/SGPT 16 U/L (<=46); Albumin, Serum 3.7 g/dL (3.4-4.8); Alkaline Phosphatase 89 U/L (40-129); Anion Gap 11 (5-15); BUN 19 mg/dL (4-19); BUN/Creat Ratio 12.4 RATIO (10-20); Calcium,Total 9.5 mg/dL (7.6-11.0); Carbon Dioxide 23.8 mmol/L (21.0-32.0); Chloride 102 mmol/L (98-108); Estimated Creatinine Clearance 32.01 ml/min (50-250); Globulin 3.8 g/dL (2.2-4.2); Glucose 100 mg/dL (70-99); Potassium 3.5 mmol/L (3.3-5.1)
[2024-12-10 22:29] VITALS: BP 136/78; PULSE 99; RESP 28; TEMP 39.4; O2SAT 90
[2024-12-10 23:00] VITALS: BP 123/59; PULSE 93; RESP 22; TEMP 39.4; O2SAT 90
[2024-12-10 23:01] VITALS: BP 123/59; PULSE 93; RESP 22; TEMP 39.4; O2SAT 90
--- NOTE | 2024-12-10 23:07 | CT_ITS ---
PROCEDURE: CTA CHEST W/WO CONTRAST 12/10/2024 REASON FOR EXAM: CONCERN FOR PNEUMONIA TECHNIQUE: CTA CHEST W/WO CONTRAST Multiplanar Sagittal and Coronal images were obtained. CONTRAST: Isovue 370 VOLUME: 98 mL One or more dose reduction techniques were used (e.g., Automated exposure control, adjustment of the mA and/or kV according to patient size, use of iterative reconstruction technique). RADIATION DOSE SUMMARY: CTDlvol: 42 mGy DLP: 511 mGycm COMPARISON: Chest x-ray same day FINDINGS: Unremarkable base of neck and axilla. Borderline prominent heart size. Possible LVH. No aortic dissection. No pulmonary embolism. Central airways are patent. Small bilateral effusions, adjacent compressive atelectasis. Additional airspace disease, right lower lobe, favoring consolidation. No pneumothorax. Cholelithiasis. 4 mm left renal calcification. Right-sided parapelvic cysts or hydronephrosis, partially imaged. Consider ultrasound. CT/CTA Chest W/WO Contrast IMPRESSION: Small bilateral effusions with adjacent compressive atelectasis. Possible right lower lobe consolidation also. Correlate for possible aspiratio n. No embolism or dissection. Possible right-sided hydronephrosis. Consider ultrasound. Reading Location: [place] [id number]
[2024-12-11] VITALS (8 sets, daily range): BP systolic 101–152; BP diastolic 53–89; PULSE 60–90; RESP 16–28; TEMP 36.6–38.1; O2SAT 90–99; BMI 26.2
--- NOTE | 2024-12-11 | US_ITS ---
PROCEDURE: KIDNEY AND BLADDER 12/11/2024 REASON FOR EXAM: UTI, ? HYDRONEPHROSIS TECHNIQUE: KIDNEY AND BLADDER COMPARISON: No previous studies FINDINGS: Right kidney measures 9.9 x 6.8 x 5.4 cm. Renal cortex measures 1.1 cm. No suspicious solid renal lesion. There is severe hydronephrosis and hydroureter. There is a nonobstructing 1.0 cm stone. Left kidney measures 10.8 x 5.1 x 4.9 cm. Cortical thickness of 1.1 cm. There is moderate to severe left hydronephrosis and hydroureter without obstructing stone. There are multiple nonobstructing left renal stones largest measures 0.8 cm. There is also a hypoechoic slightly vascular upper pole mass measuring 2.1 x 2.4 x 1.8 cm. This should be further evaluated with contrasted CT or MRI. Valentino catheter noted within the bladder. US/Kidney and Bladder IMPRESSION: Severe right-sided hydronephrosis, and moderate to severe left hydronephrosis w ithout clearly demonstrated obstructing stone. The asymmetry of the hydronephrosis suggests likely bladder outlet issues likel y due to prostate issues or perhaps postsurgical changes to the prostate bed. There is a solid 2.1 x 2.4 x 1.8 cm exophytic mass in the upper pole of the rig ht kidney that needs further evaluation with contrasted CT or MRI Bilateral nonobstructing renal stones Reading Location: [id number]
[2024-12-11] MEDS: Azithromycin 500 MG in 0.9% Normal Saline (250mL Bag) 250 ML 250 MG IV (00:05)
--- NOTE | 2024-12-11 00:28 | PCM.HP.STD ---
HPI - General General Date of Admission: 12/11/24 Date of Service: 12/11/24 Chief Complaint: Weakness, debility. HPI Narrative The patient is an 89 y/o M w/ PMHx: ? CHERIE, Chronic Hypoxic Respiratory Failure (3L q HS as noted he is supposed to supplement with activity during the day as well but does not use it), CKD stage III per GFR trending, HTN, hLD, CAD s/p PCI, Lymphoma following w/ Dr. Barraza, Former tobacco use, BPH with obstructive pathology who presents to the [facility] ED on 12/11/2024 with significant fatigue, malaise, chills and subjective fever but he had not checked his temperature with possible increased urinary frequency and red tinged urine but no specific dyspnea or recent productive cough although he does report frequent coughing with oral intake attempts on a routine bases. In the ED handley was placed as part of a protocol per discussion with staff analyst, he was not retaining urine and was actually having urinary incontinence. Workup in the ED included T103, heart rate 106, BP 140/71, respiratory rate 20, 92% on room air with most recent repeat vitals T1 100.5, heart rate 90, BP 102/89, respiratory rate 28, 90% on room air, CBC with WC 11.1, hemoglobin 13.6, platelet 280 with left shift, unremarkable coags, CMP with BUN/creatinine 19/1.52, GFR 44, glucose 100, lactic acid 1.6, hepatic profile unremarkable, urinalysis with protein 100, ketone 5, occult blood 250, positive nitrite, leukocyte Estrace 25, urine RBCs greater than 100, urine WBCs 5-10 with 1+ urine bacteria, urine culture pending per ED, blood culture x 2 pending per ED, chest x-ray with bibasilar airspace disease, follow-up chest CTA with small bilateral effusions with adjacent compressive atelectasis, possible right lower lobe consolidation concerning for aspiration with no PE or dissection and questionable right sided hydronephrosis. In the ED patient ministered 1 L normal saline, Tylenol 1000 mg p.o. x 1, azithromycin 500 mg IV x 1, Rocephin 1 g IV x 1. [facility] Medical History Chronic hypoxic respiratory failure, on home oxygen therapy Former tobacco use CAD (coronary artery disease) Benign prostatic hyperplasia Lymphoma CKD (chronic kidney disease), stage III Congestive heart failure (CHF) Hypertension Lesion of left [place] kidney Heart block AV second degree Trauma Waldenstrom macroglobulinemia Home Medications ?Medication ?Instructions ?Recorded ?Last Taken ?Type acyclovir 200 mg capsule 200 po.syringe PO BID ANTIVIRAL 02/28/19 02/28/19 History cholecalciferol (vitamin D3) 50 2,000 unit PO DAILY SUPPLEMENT 02/28/19 02/28/19 History mcg (2,000 unit) capsule finasteride 5 mg tablet 5 mg PO DAILY PROSTATE 02/28/19 02/27/19 History furosemide 20 mg tablet 20 mg PO DAILY WATER PILL 02/28/19 02/28/19 History losartan 100 mg tablet 100 mg PO DAILY 02/28/19 Unknown History melatonin 10 mg capsule 10 mg PO QHS PRN PRN Sleep 02/28/19 Unknown History tamsulosin 0.4 mg capsule 0.4 mg PO DAILY BLOOD PRESSURE 02/28/19 02/28/19 History Metoprolol Succinate 50 mg PO DAILY 01/17/20 Unknown History dexamethasone 4 mg tablet 2 mg PO DAILY 11/16/20 Unknown History (Decadron) [id number] tablet 1 tab PO DAILY 11/16/20 Unknown History Allergy/AdvReac Type Severity Reaction Status Date / Time No Known Allergies Allergy Verified 12/10/24 21:04 Family History (Updated 12/11/24 @ 00:[address] Koki Begum MD) Father Cancer Hypertension Mother Hypertension Surgical History (Updated 12/11/24 @ 00:[address] Koki Begum MD) History of back surgery History of coronary artery stent placement Social History (Updated 12/11/24 @ 00:[address] Koki Begum MD) household members: none Smoking Status: Never smoker how long ago did patient quit smoking: Smoked remotely and very minimally (1-2 cig/wk) in youth. alcohol intake: never substance use type: does not use ROS ROS Narrative Admission Review of Systems: CONSTITUTIONAL: No weight loss, + fever, chills, weakness or fatigue. HEENT: + chronic hearing loss, uses hearing aids. Eyes: No visual loss, blurred vision, double vision or yellow sclerae. Ears, Nose, Throat: No sneezing, congestion, runny nose or sore throat. SKIN: No rash or itching, lesions, wounds. CARDIOVASCULAR: No chest pain, chest pressure or chest discomfort, palpitations, edema, orthopnea, syncopal events. RESPIRATORY: + Chronic coughing especially with food oral intake per patient report, chronic increased phlegm he notes. No shortness of breath, wheezing, hemoptysis. GASTROINTESTINAL: No anorexia, nausea, vomiting or diarrhea, abdominal pain, melena, BRBPR. GENITOURINARY: + Frequency, hematuria. No dysuria,urgency or retention. NEUROLOGICAL: No headache, dizziness, syncope, paralysis, ataxia, numbness or tingling in the extremities, focal weakness, change in bowel or bladder control, seizure. MUSCULOSKELETAL: + muscle, back pain, joint pain or stiffness. HEMATOLOGIC: No anemia, + easy bleeding/bruising. LYMPHATICS: No enlarged nodes. No history of splenectomy. PSYCHIATRIC: No history of depression or anxiety. ENDOCRINOLOGIC: No reports of sweating, cold or heat intolerance. No polyuria or polydipsia. ALLERGIES: No history of asthma, hives, eczema or rhinitis. Vital Signs Vital Signs Vital Signs: 12/10/24 21:00 12/10/24 21:27 12/10/24 21:27 Temperature 103 F H 103 F H Temperature Source Oral Oral Pulse Rate 106 H 105 H Respiratory Rate 20 H 35 H Respiratory Effort Respiratory Pattern Blood Pressure 148/71 H 141/65 H Blood Pressure Mean 96 90 Pulse Ox 92 91 Oxygen Delivery Method Room Air Room Air Room Air 12/10/24 21:27 12/10/24 22:04 12/10/24 22:29 Temperature 103 F H 102.9 F H Temperature Source Oral Oral Pulse Rate 108 H 99 Respiratory Rate 33 H 28 H Respiratory Effort Normal Non-Labored Respiratory Pattern Normal Blood Pressure 144/78 H 136/78 H Blood Pressure Mean 100 97 Pulse Ox 90 90 Oxygen Delivery Method Room Air Room Air 12/10/24 23:00 12/10/24 23:01 12/11/24 00:00 Temperature 102.9 F H 102.9 F H 100.5 F H Temperature Source Oral Oral Pulse Rate 93 93 90 Respiratory Rate 22 H 22 H 28 H Respiratory Effort Respiratory Pattern Blood Pressure 123/59 H 123/59 H 102/89 H Blood Pressure Mean 80 80 93 Pulse Ox 90 90 90 Oxygen Delivery Method Room Air Room Air Weight Weight: 171 lb 8.314 oz Body Mass Index (BMI) 26.9 Physical Exam Narrative Physical Examination: General: Awake, alert, oriented x 3 and cooperative, very hard of hearing, fatigued but no acute distress, laying in the ED bed. Skin: Normal color, normal turgor, no icterus, no cyanosis except occasional stage ecchymoses, abrasions. HEENT: AT/NC, EOMI, PERRLA, dry MM, no carotid bruits or JVD noted. Lungs: Diminished, greater bases, right greater than left, mildly increased respiratory rate with no overt distress, no appreciated rales, ronchi or wheezing. Heart: Regular rate and rhythm; no gallop, rub audible. Abdomen: Soft, overweight, NTTP, ND, hyperactive BS, no appreciated HSM. Handley in place with significantly red appearing urine but no clots obvious. Extremities: No cyanosis, no clubbing, no marked significant pitting edema noted. Neurological: Patient awake, alert, oriented as noted, cognitive function intact; pupils equally reactive to light and accommodation, cranial nerves grossly normal, moving all 4 extremities, no focal deficits, strength severely globally decreased. Psychiatric: Affect appears flat, fatigued, no acute evidence of depressive or anxiety feelings. Results Lab / Micro Data 12/10/24 21:32 12/10/24 21:32 Labs: Laboratory Results - last 24 hr 12/10/24 21:00: Lactic Acid 1.6 12/10/24 21:32: WBC 11.1 H, RBC 4.38 L, Hgb 13.6, Hct 40.9, MCV 93.4, MCH 31.1, MCHC 33.3, RDW Std Deviation 51.7 H, RDW Coeff of So 14.9 H, Plt Count 280, MPV 10.7, Immature Gran % (Auto) 0.400, Neut % (Auto) 82.5 H, Lymph % (Auto) 8.0 L, [place] % (Auto) 7.1, Eos % (Auto) 1.6, Baso % (Auto) 0.4, Absolute Neuts (auto) 9.2 H, Absolute Lymphs (auto) 0.89, Nucleated RBC % 0, PT 14.5, INR 1.1, APTT 27.3, Sodium 137, Potassium 3.5, Chloride 102, Carbon Dioxide 23.8, Anion Gap 11, BUN 19, Creatinine 1.52 H, Estim Creat Clear Calc 32.01 L, Est GFR (MDRD) Non-Af 44 L, BUN/Creatinine Ratio 12.4, Glucose 100 H, Calcium 9.5, Total Bilirubin 0.47, AST 21, ALT 16, Alkaline Phosphatase 89, Total Protein 7.5, Albumin 3.7, Globulin 3.8, Albumin/Globulin Ratio 1.0, Urine Color Red, Urine Clarity Cloudy, Urine pH 7.0, Ur Specific [place] 1.010, Urine Protein 100 H, Urine Glucose (UA) Normal, Urine Ketones 5 H, Urine Occult Blood 250 H, Urine Nitrite Positive H, Urine Bilirubin Negative, Urine Urobilinogen Normal, Ur Leukocyte Esterase 25 H, Urine RBC > 100 SEEN, Urine WBC 5-10 SEEN, Ur Squamous Epith Cells 0-5 SEEN, Urine Bacteria 1+, Urine Mucus 0 SEEN Imaging Radiology Impression Chest X-Ray 12/10/24 21:45 IMPRESSION: Bibasilar airspace disease. Correlate for possible aspiration pneumonia. Reading Location: [facility]- Chest CTA 12/10/24 23:07 IMPRESSION: Small bilateral effusions with adjacent compressive atelectasis. Possible right lower lobe consolidation also. Correlate for possible aspiration. No embolism or dissection. Possible right-sided hydronephrosis. Consider ultrasound. Reading Location: [facility]-2 Assessment & Plan Assessment/Plan (1) UTI (urinary tract infection): PLAN: Plan The patient is an 89 y/o M w/ PMHx: ? CHERIE, Chronic Hypoxic Respiratory Failure (3L q HS as noted he is supposed to supplement with activity during the day as well but does not use it), CKD stage III per GFR trending, HTN, hLD, CAD s/p PCI, Lymphoma following w/ Dr. Barraza, Former tobacco use, BPH with obstructive pathology who presents to the [facility] ED on 12/11/2024 with significant fatigue, malaise prompting ED evaluation. #1. Right lower lobe pneumonia, concern for aspiration component w/ Chronic Hypoxic Respiratory Failure: Will admit to PCU, maintain on oxygen with wean as tolerated to room air, continue ATC duonebs, PRN albuterol, maintain on IV Zosyn given concern for possible aspiration component with MRSA screen requested, HOB, IS parameters w/ pending sputum cultures, full respiratory viral panel and urine antigens. ST consulted. Bld cx x 2 obtained in the ED. #2. Acute Urinary Tract Infection with questionable right-sided hydronephrosis on CT imaging w/ associated hematuria: UA upon ED evaluation remarkable, pending UCx, will continue IVFs, monitor I/Os, continue IV Zosyn given concern as noted above for aspiration concurrently w/ transition as able pending sensitivities and speciation. Renal ultrasound requested. Bld cx x 2 obtained in the ED. #3. Fatigue, debility, adult failure to thrive, multifactorial, secondary to #1, #2: In addition to underlying comorbidities, will maintain on fall precautions as well as aspiration precautions, ST consulted given concerns for possible aspiration component, in addition we will have PT/OT/case management for discharge planning. #4. Chart reported HF history, per most recent records noted 2018 suspect HFpEF: Most recent echocardiogram noted 07/25/2018 with normal LV size, LV systolic function normal, EF 60%, stage I diastolic dysfunction, clarifying but currently does not have baby aspirin although will hold on addition of ASA addition given notable hematuria until improving, not on statin therapy, temporarily holding metoprolol, losartan, Lasix regimen given low BP, add back once appropriate. Judiciously hydrating given unclear history. #5. Chronic Kidney Disease Stage III, unclear subtype or GFR trending: Admission BUN/Cr 19/1.52, GFR 44, baseline renal function more recently primarily 1.7 however these labs are remote and from [id number], repeat BMP in AM to further elucidate current baseline creatinine level. #6. Hypertension: Given current presentation will temporarily hold hypertensive regimen, judiciously hydrating, add back regimen once clinically appropriate. #7. Hyperlipidemia: Currently not on regimen, defer to outpatient. #8. Lymphoma: Followed with [facility] Dr. Barraza, treated per remote notes with chemotherapy, notes he is currently on oral regimen but unclear exact specifics, he does report that he is not considered in remission, will maintain on prophylactic acyclovir however verifying regimen. Mag, Phos pending. #9. Former tobacco use: Encourage continued tobacco cessation, notes remote minimal smoking, potentially 1-2 cig/week in his youth. #10. BPH with obstructive pathology: Will continue patient on Flomax and finasteride regimen, monitor for retention. #11. ? CHERIE: Denies sleep apnea history, notes primarily only using oxygen at night 3L NC, unclear hypoxia reason but then also notes may supposed to be using it with activity also. #12. DVT prophylaxis: Lovenox. #13. CODE status: Patient ERIN is his significant and living will is currently in place. Discussed CODE status at length including difference between FULL code, DNR-CCA and DNR-CC status. Following discussions about the differences in these status, requested Full Code status. Charges/Coding Visit Charges Inpatient E&M: 68366 Init Hosp L3
[2024-12-11 01:17] LABS: Magnesium 2.0 mg/dL (1.5-2.2)
[2024-12-11] MEDS: Piperacil/Tazobactam 3.375 GM in 0.9% Normal Saline (50mL MB+) 50 ML IV ×3 (02:14→21:28)
[2024-12-11] MEDS: Vancomycin HCl 2,000 MG in 0.9% Normal Saline (500mL Bag) 500 ML 250 MG IV (02:27)
[2024-12-11] MEDS: 0.9% Normal Saline (1000mL) 1,000 ML 100 ML IV (02:28)
[2024-12-11] MEDS: 0.9% Saline Lock 10 ML Syringe IV (02:28)
--- NOTE | 2024-12-11 03:37 | PCM.RX.CS ---
Consult Antibiotic Management Pharmacy has been consulted to manage selected antibiotic: Vancomycin Type of Intervention Type of Consult: New start Labs Labs: Sodium 137 mmol/L (133-145) 12/10/24 21:32 Potassium 3.5 mmol/L (3.3-5.1) 12/10/24 21:32 Chloride 102 mmol/L (98-108) 12/10/24 21:32 Carbon Dioxide 23.8 mmol/L (21.0-32.0) 12/10/24 21:32 Anion Gap 11 (5-15) 12/10/24 21:32 BUN 19 mg/dL (4-19) 12/10/24 21:32 Creatinine 1.52 mg/dL (0.70-1.20) H 12/10/24 21:32 Est GFR (MDRD) Non-Af 44 (>60) L 12/10/24 21:32 BUN/Creatinine Ratio 12.4 RATIO (10-20) 12/10/24 21:32 Glucose 100 mg/dL (70-99) H 12/10/24 21:32 Dosing Weight Weight used for dosin.7 kg Estimated Creatinine Clearance Estimated Creatinine Clearance: 32.01 Goal Trough Goal Trough: 15-20 mcg/mL Pharmacy Plan for Drug Dosing Pharmacy Plan for Drug Dosing: Pharmacy Service will continue to monitor and adjust dosing as required. LOADIN DOSE OF 2GM GIVEN 12/11 @ 0227. START 1GM Q24H ABD DRAW TROUGH PRIOR TO 3RD DOSE Follow-Up Labs Follow-Up Labs: Trough: Vancomycin Date/Time Labs Ordered Labs to be done on [date and time ordered]: 12/13 @ 0200
[2024-12-11 06:06] LABS: Hematocrit 36.8 % (40-54); Hemoglobin 12.0 g/dL (13.0-16.5); Immature Granulocytes Count 0.060 X10^3/uL (0.0-0.0); Mean Corp Hgb Conc 32.6 g/dL (32-36); Mean Corpuscular Volume 95.3 fL (80-94); Mean Platelet Vol. 11.1 fl (6.2-12.0); NRBC Flagged by Analyzer 0 % (0-5); Platelet Count 231 K/mm3 (150-450); RBC Distribution Width CV 14.9 % (11.6-14.6); RBC Distribution Width SD 51.5 fl (35.1-43.9); Red Blood Count 3.86 M/mm3 (4.6-6.2); White Blood Count 13.6 K/mm3 (4.4-11.0)
[2024-12-11 06:47] LABS: AST(SGOT) 110 U/L (<=37); Alanine Aminotransfer ALT/SGPT 81 U/L (<=46); Albumin, Serum 3.0 g/dL (3.4-4.8); Alkaline Phosphatase 82 U/L (40-129); Anion Gap 9 (5-15); BUN 20 mg/dL (4-19); BUN/Creat Ratio 14.9 RATIO (10-20); Calcium,Total 8.5 mg/dL (7.6-11.0); Carbon Dioxide 21.9 mmol/L (21.0-32.0); Chloride 107 mmol/L (98-108); Estimated Creatinine Clearance 35.05 ml/min (50-250); Globulin 3.1 g/dL (2.2-4.2); Glucose 104 mg/dL (70-99); Potassium 3.9 mmol/L (3.3-5.1)
--- NOTE | 2024-12-11 07:13 | PN.HOSP_ITS ---
Reason for Visit Reason for Visit: Diagnoses Urinary tract infection, site not specified (12/11/24) Objective Data Objective Data Vital Signs: Vital Signs Temp Pulse Resp BP Pulse Ox O2 Del Method O2 Flow Rate 98.5 F 89 18 126/88 H 97 Nasal Cannula 2 12/11/24 02:33 12/11/24 02:33 12/11/24 02:33 12/11/24 02:33 12/11/24 02:33 12/11/24 02:34 12/11/24 02:34 Oxygen Flow Rate (L/min) 2 Oxygen Delivery Method Nasal Cannula Weight: 166 lb 14.239 oz Body Mass Index (BMI) 26.2 Intake & Output: Intake and Output for Last 24 Hours 12/09/24 12/10/24 12/11/24 23:59 23:59 23:59 Intake Total 1050 / 1050 790 / 790 Output Total 800 / 800 Balance 1050 / 1050 -10 / -10 Lab / Micro Data 12/11/24 05:05 12/11/24 05:05 Labs: Laboratory Results - last 24 hr 12/10/24 21:00: Lactic Acid 1.6 12/10/24 21:32: WBC 11.1 H, RBC 4.38 L, Hgb 13.6, Hct 40.9, MCV 93.4, MCH 31.1, MCHC 33.3, RDW Std Deviation 51.7 H, RDW Coeff of So 14.9 H, Plt Count 280, MPV 10.7, Immature Gran % (Auto) 0.400, Neut % (Auto) 82.5 H, Lymph % (Auto) 8.0 L, Waller % (Auto) 7.1, Eos % (Auto) 1.6, Baso % (Auto) 0.4, Absolute Neuts (auto) 9.2 H, Absolute Lymphs (auto) 0.89, Nucleated RBC % 0, PT 14.5, INR 1.1, APTT 27.3, Sodium 137, Potassium 3.5, Chloride 102, Carbon Dioxide 23.8, Anion Gap 11, BUN 19, Creatinine 1.52 H, Estim Creat Clear Calc 32.01 L, Est GFR (MDRD) Non-Af 44 L, BUN/Creatinine Ratio 12.4, Glucose 100 H, Calcium 9.5, Phosphorus 0.9 L*, Magnesium 2.0, Total Bilirubin 0.47, AST 21, ALT 16, Alkaline Phosphatase 89, Total Protein 7.5, Albumin 3.7, Globulin 3.8, Albumin/Globulin Ratio 1.0, Urine Color Red, Urine Clarity Cloudy, Urine pH 7.0, Ur Specific Hewlett 1.010, Urine Protein 100 H, Urine Glucose (UA) Normal, Urine Ketones 5 H, Urine Occult Blood 250 H, Urine Nitrite Positive H, Urine Bilirubin Negative, Urine Urobilinogen Normal, Ur Leukocyte Esterase 25 H, Urine RBC > 100 SEEN, Urine WBC 5-10 SEEN, Ur Squamous Epith Cells 0-5 SEEN, Urine Bacteria 1+, Urine Mucus 0 SEEN 12/11/24 05:05: WBC 13.6 H, RBC 3.86 L, Hgb 12.0 L, Hct 36.8 L, MCV 95.3 H, MCH 31.1, MCHC 32.6, RDW Std Deviation 51.5 H, RDW Coeff of So 14.9 H, Plt Count 231, MPV 11.1, Immature Gran % (Auto) 0.400, Neut % (Auto) 80.7 H, Lymph % (Auto) 9.1 L, Waller % (Auto) 8.8, Eos % (Auto) 0.4, Baso % (Auto) 0.6, Absolute Neuts (auto) 10.9 H, Absolute Lymphs (auto) 1.24, Nucleated RBC % 0, Sodium 138, Potassium 3.9, Chloride 107, Carbon Dioxide 21.9, Anion Gap 9, BUN 20 H, C reatinine 1.34 H, Estim Creat Clear Calc 35.05 L, Est GFR (MDRD) Non-Af 51 L, BUN/Creatinine Ratio 14.9, Glucose 104 H, Calcium 8.5, Total Bilirubin 0.29, AST 110 H, ALT 81 H, Alkaline Phosphatase 82, Total Protein 6.0, Albumin 3.0 L, Globulin 3.1, Albumin/Globulin Ratio 1.0 Radiography Diagnostic Testing: Radiology Impression Chest X-Ray 12/10/24 21:45 IMPRESSION: Bibasilar airspace disease. Correlate for possible aspiration pneumonia. Reading Location: [facility]2 Chest CTA 12/10/24 23:07 IMPRESSION: Small bilateral effusions with adjacent compressive atelectasis. Possible right lower lobe consolidation also. Correlate for possible aspiration. No embolism or dissection. Possible right-sided hydronephrosis. Consider ultrasound. Reading Location: [place] [address] Physical Exam Narrative Seen and examined Patient came with a fever. He also had increased frequency and nocturia, urinating every 2 hours. Feeling weak. History of lymphoma on Imbruvica. He has cough for more than a month and brings up yellowish phlegm. Physical exam General: Alert, Oriented x3, Cooperative. BMI 26.2 kg/m? HEENT: Atraumatic, PERRLA, EOMI, Normocephalic. Oral: No Gingival or Mucosal Lesions/ Ulcerations Neck: Supple, No JVD, Negative Carotid Bruits Chest wall/Lungs: Air entry diminished in bilateral lung bases. Mild bibasilar crepitations Cardiovascular: Regular rate and rhythm, Normal S1,S2, No M/G/R Abdomen: Bowel Sounds Present, Soft, Non Tender, Non-Distended : Valentino catheter. Mild traumatic hematuria, pinkish urine. Mild tenderness over perineal urethra. No renal angle or suprapubic tenderness. Extremities: No edema, Capillary Refill Less than 3 Seconds Skin: No rashes, No breakdown Musculoskeletal: No Tenderness to Palpation of Joints or Extremities Neurological: Cranial nerves II-XII grossly intact, DTR 2+/4. No acute focal neurological deficit. Psych/Mental Status: Normal Affect, Appropriate. Assessment & Plan Assessment/Plan (1) UTI (urinary tract infection): PLAN: Plan The patient is an 89 y/o M Lymphoma following w/ Dr. Barraza, is being admitted on 12/11/2024 with significant fatigue, malaise prompting ED evaluation. #1. Right lower lobe pneumonia, concern for aspiration pneumonitis/pneumonia with chronic Hypoxic Respiratory Failure: In ED patient had fever 103 Fahrenheit, mild tachycardia, tachypnea and borderline leukocytosis 11.1 K features suggestive of SIRS from infection right humeral pneumonia/UTI. Patient does not have any features of organ dysfunction. Patient initially started on IV vancomycin and Zosyn. MRSA nasal screen negative. As the patient is on immunotherapy/chemotherapy Imbruvica for lymphoma hence immunocompromise therefore continue IV Unasyn. Discontinue IV vancomycin. Lactic acid normal. Respiratory panel normal. Blood cultures x 2 are pending. #2. Acute Urinary Tract Infection with questionable right-sided hydronephrosis on CT imaging w/ associated traumatic hematuria: UA in ED shows LE positive, occult blood, nitrite positive WBC 5-10 cells, RBC more than 100 cells, squamous epithelial 0-5 cells therefore possible UTI. Patient also has perineal tenderness symptomatic hematuria after Valentino catheter. Continue p.o. antibiotic. #3. Fatigue, debility, adult failure to thrive, multifactorial, secondary to #1, #2: In addition to underlying comorbidities, will maintain on fall precautions as well as aspiration precautions, ST consulted given concerns for possible aspiration component, in addition we will have PT/OT/case management for discharge planning. #4. Chronic HFpEF: Most recent echocardiogram noted 07/25/2018 with normal LV size, LV systolic function normal, EF 60%, stage I diastolic dysfunction but patient is not on statin. Holding losartan and Lasix given the patient has infection and lower BP in ED. Current continue metoprolol #5. Chronic Kidney Disease Stage IIIb: Admission BUN/Cr 19/1.52, EGFR 32 mL to 35 mL/min. Baseline renal function, creatinine 1.7 from 5691-9440, repeat BMP shows slight improvement creatinine 1.34. #6. Hypertension: Given current presentation will temporarily hold hypertensive regimen, judiciously hydrating, add back regimen once clinically appropriate. #7. Hyperlipidemia: Currently not on regimen, defer to outpatient. #8. Lymphoma with history of remote smoking: Followed with [facility] Dr. Barraza. Patient's clarified that he is on medicine Imbruvica. Will currently hold because of the infection and high fever it seems patient on prophylactic acyclovir, continued. Patient smoked in the past remotely minimal potentially 1 to 2 cigarettes/week in his youth right eye. #9. Hypophosphatemia: IV phosphorus ordered. Is very low at 0.9. 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 DVT prophylaxis: Hold Lovenox today because of traumatic hematuria. #13. CODE status: Patient ERIN is his significant and living will is currently in place. Discussed CODE status at length including difference between FULL code, DNR-CCA and DNR-CC status. Following discussions about the differences in these status, requested Full Code status. Microbiology Past 72 Hours 12/11/24 02:10 Nasal Secretion MRSA (PCR) - Final 12/11/24 03:40 Mucosa - Nasopharyngeal Respiratory Panel (PCR) - Final 12/11/24 02:10 Urine Catheter - Catheter Legionella Antigen - Final 12/11/24 02:10 Urine Catheter - Catheter Streptococcus pneumoniae Antigen (M - Final Laboratory Results 12/10/24 21:00: Lactic Acid 1.6 12/10/24 21:32: WBC 11.1 H, RBC 4.38 L, Hgb 13.6, Hct 40.9, MCV 93.4, MCH 31.1, MCHC 33.3, RDW Std Deviation 51.7 H, RDW Coeff of So 14.9 H, Plt Count 280, MPV 10.7, Immature Gran % (Auto) 0.400, Neut % (Auto) 82.5 H, Lymph % (Auto) 8.0 L, Waller % (Auto) 7.1, Eos % (Auto) 1.6, Baso % (Auto) 0.4, Absolute Neuts (auto) 9.2 H, Absolute Lymphs (auto) 0.89, Nucleated RBC % 0, PT 14.5, INR 1.1, APTT 27.3, Sodium 137, Potassium 3.5, Chloride 102, Carbon Dioxide 23.8, Anion Gap 11, BUN 19, Creatinine 1.52 H, Estim Creat Clear Calc 32.01 L, Est GFR (MDRD) Non-Af 44 L, BUN/Creatinine Ratio 12.4, Glucose 100 H, Calcium 9.5, Phosphorus 0.9 L*, Magnesium 2.0, Total Bilirubin 0.47, AST 21, ALT 16, Alkaline Phosphatase 89, Total Protein 7.5, Albumin 3.7, Globulin 3.8, Albumin/Globulin Ratio 1.0, Urine Color Red, Urine Clarity Cloudy, Urine pH 7.0, Ur Specific Hewlett 1.010, Urine Protein 100 H, Urine Glucose (UA) Normal, Urine Ketones 5 H, Urine Occult Blood 250 H, Urine Nitrite Positive H, Urine Bilirubin Negative, Urine Urobilinogen Normal, Ur Leukocyte Esterase 25 H, Urine RBC > 100 SEEN, Urine WBC 5-10 SEEN, Ur Squamous Epith Cells 0-5 SEEN, Urine Bacteria 1+, Urine Mucus 0 SEEN 12/11/24 05:05: WBC 13.6 H, RBC 3.86 L, Hgb 12.0 L, Hct 36.8 L, MCV 95.3 H, MCH 31.1, MCHC 32.6, RDW Std Deviation 51.5 H, RDW Coeff of So 14.9 H, Plt Count 231, MPV 11.1, Immature Gran % (Auto) 0.400, Neut % (Auto) 80.7 H, Lymph % (Auto) 9.1 L, Waller % (Auto) 8.8, Eos % (Auto) 0.4, Baso % (Auto) 0.6, Absolute Neuts (auto) 10.9 H, Absolute Lymphs (auto) 1.24, Nucleated RBC % 0, Sodium 138, Potassium 3.9, Chloride 107, Carbon Dioxide 21.9, Anion Gap 9, BUN 20 H, Creatinine 1.34 H, Estim Creat Clear Calc 35.05 L, Est GFR (MDRD) Non-Af 51 L, BUN/Creatinine Ratio 14.9, Glucose 104 H, Calcium 8.5, Total Bilirubin 0.29, AST 110 H, ALT 81 H, Alkaline Phosphatase 82, Total Protein 6.0, Albumin 3.0 L, Globulin 3.1, Albumin/Globulin Ratio 1.0 Charges/Coding Visit Charges Inpatient E&M: 27802 Subs Hosp L2
[2024-12-11] MEDS: guaiFENesin/D-Methorphan TAB.SR.12H 2 TABLET PO ×2 (09:43→21:24)
[2024-12-11] MEDS: Potassium Phosphate 30 MM in 0.9% Normal Saline (250mL Bag) 250 ML 42 MM IV (14:15)
--- NOTE | 2024-12-11 15:12 | CASEMGMT ---
RADHA TRAN Assessment Face to Face with patient for initial transition planning/care coordination assessment. RADHA TRAN introduced self and role at [facility], pt voices understanding. Pt is A&Ox4 and is resting comfortably in the chair and is calm. Pt's SO at bedside. Care providers, pharmacy, and demographics verified. Admitting dx: UTI, PNA, Adult FTT PCP: Allyson Davis Specialists: Madi (Oncology), Eddie (Cardio), Kian (Gen Surg). Pt also reports that he sees a millinery designer out of [place] but cannot recall the name Preferred Pharmacy: [facility] Insurance: ERN Prescription Benefit: Yes LNOK: Genesis Núñez (SO) Living Arrangements: Pt lives with his SO in a single story home with 2 steps to enter ADLs/IADLs: Indep Transportation: Self, SO DME: Home oxygen through [employer]. Verified the pt's current order is 3L continuous. Pt has a concentrator, POC, and portable tank. Pt has a Pox. Pt's SO plans to bring in the POC @ [place]. Pt also has a BP Machine. HHC/SNF: [facility] and HH after but is unsure of the agency Pt?s goal: Home Plan: Home with pt's SO, follow for updated O2 Rx needs. Otherwise, no further needs identified at this time. Pt was cleared by PT, OT, and ST. Pt states that he feels safe returning home with his SO once medically ready and denies further questions or concerns at this time. Report given to MS3 RADHA TRAN. Earl Gutierrez RN, CM
[2024-12-12] VITALS (7 sets, daily range): BP systolic 106–188; BP diastolic 53–86; PULSE 75–83; RESP 16–18; TEMP 36.4–37.1; O2SAT 95–98; BMI 26.3
[2024-12-12] MEDS: MELATONIN 3 MG TABLET PO (01:22)
[2024-12-12] MEDS: Piperacil/Tazobactam 3.375 GM in 0.9% Normal Saline (50mL MB+) 50 ML IV ×3 (04:17→22:22)
[2024-12-12 07:17] LABS: Hematocrit 35.8 % (40-54); Hemoglobin 11.8 g/dL (13.0-16.5); Immature Granulocytes Count 0.050 X10^3/uL (0.0-0.0); Mean Corp Hgb Conc 33.0 g/dL (32-36); Mean Corpuscular Volume 94.7 fL (80-94); Mean Platelet Vol. 10.6 fl (6.2-12.0); NRBC Flagged by Analyzer 0 % (0-5); POSITIVE DIFFERENTIAL YES; Platelet Count 226 K/mm3 (150-450); RBC Distribution Width CV 15.0 % (11.6-14.6); RBC Distribution Width SD 52.0 fl (35.1-43.9); Red Blood Count 3.78 M/mm3 (4.6-6.2); White Blood Count 9.0 K/mm3 (4.4-11.0)
[2024-12-12 07:53] LABS: Anion Gap 9 (5-15); BUN 13 mg/dL (4-19); BUN/Creat Ratio 11.7 RATIO (10-20); Calcium,Total 8.7 mg/dL (7.6-11.0); Carbon Dioxide 22.3 mmol/L (21.0-32.0); Chloride 108 mmol/L (98-108); Estimated Creatinine Clearance 41.56 ml/min (50-250); Glucose 99 mg/dL (70-99); Potassium 3.9 mmol/L (3.3-5.1)
[2024-12-12 08:28] LABS: Magnesium 2.1 mg/dL (1.5-2.2)
[2024-12-12] MEDS: guaiFENesin/D-Methorphan TAB.SR.12H 2 TABLET PO ×2 (09:23→22:25)
--- NOTE | 2024-12-12 13:49 | PCM.PN.HOSP ---
Reason for Visit Reason for Visit: Diagnoses Urinary tract infection, site not specified (12/11/24) Objective Data Objective Data Vital Signs: Vital Signs Temp Pulse Resp BP Pulse Ox O2 Del Method O2 Flow Rate 98.7 F 75 16 106/54 L 98 Nasal Cannula 3 12/12/24 09:03 12/12/24 09:03 12/12/24 09:03 12/12/24 09:03 12/12/24 09:03 12/12/24 09:09 12/12/24 09:09 Oxygen Flow Rate (L/min) 3 Oxygen Delivery Method Nasal Cannula Weight: 167 lb 12.348 oz Body Mass Index (BMI) 26.3 Intake & Output: Intake and Output for Last 24 Hours 12/10/24 12/11/24 12/12/24 23:59 23:59 23:59 Intake Total 1050 / 1050 2100 / 2600 600 / 600 Output Total 1025 / 1275 1375 / 1375 Balance 1050 / 1050 1075 / 1325 -775 / -775 Lab / Micro Data 12/12/24 06:49 12/12/24 06:49 Labs: Laboratory Results - last 24 hr 12/12/24 06:49: WBC 9.0, RBC 3.78 L, Hgb 11.8 L, Hct 35.8 L, MCV 94.7 H, MCH 31.2, MCHC 33.0, RDW Std Deviation 52.0 H, RDW Coeff of So 15.0 H, Plt Count 226, MPV 10.6, Immature Gran % (Auto) 0.600, Neut % (Auto) 81.8 H, Lymph % (Auto) 6.6 L, Mcduffie % (Auto) 8.0, Eos % (Auto) 2.3, Baso % (Auto) 0.7, Absolute Neuts (auto) 7.4, Absolute Lymphs (auto) 0.60 L, Nucleated RBC % 0, Sodium 139, Potassium 3.9, Chloride 108, Carbon Dioxide 22.3, Anion Gap 9, BUN 13, Creatinine 1.13, Estim Creat Clear Calc 41.56 L, Est GFR (MDRD) Non-Af 63, BUN/Creatinine Ratio 11.7, Glucose 99, Calcium 8.7, Phosphorus 2.6 L, Magnesium 2.1 Micro: Microbiology 12/11/24 13:00 Sputum, Expectorated/Coughed Gram Stain - Final 12/11/24 02:10 Nasal Secretion MRSA (PCR) - Final 12/11/24 03:40 Mucosa - Nasopharyngeal Respiratory Panel (PCR) - Final 12/11/24 02:10 Urine Catheter - Catheter Legionella Antigen - Final 12/11/24 02:10 Urine Catheter - Catheter Streptococcus pneumoniae Antigen (M - Final Physical Exam Narrative Seen and examined No fever or chills. Patient had Valentino catheter block due to clot but got cleared after flushing. He felt some suprapubic discomfort/pain and numbness but is feeling good now. Patient was admitted with a fever 103. He also had increased frequency and nocturia, urinating every 2 hours. Feeling weak. History of lymphoma on Imbruvica. He has cough for more than a month and brings up yellowish phlegm. Physical exam General: Alert, Oriented x3, Cooperative. BMI 26.2 kg/m? HEENT: Atraumatic, PERRLA, EOMI, Normocephalic. Oral: No Gingival or Mucosal Lesions/ Ulcerations Neck: Supple, No JVD, Negative Carotid Bruits Chest wall/Lungs: Air entry diminished in bilateral lung bases. Mild bibasilar crepitations Cardiovascular: Regular rate and rhythm, Normal S1,S2, No M/G/R Abdomen: Bowel Sounds Present, Soft, Non Tender, Non-Distended : Valentino catheter. Urine is clear in the tube in the bag. No perineal tenderness no renal angle or suprapubic tenderness. Extremities: No edema, Capillary Refill Less than 3 Seconds Skin: No rashes, No breakdown Musculoskeletal: No Tenderness to Palpation of Joints or Extremities Neurological: Cranial nerves II-XII grossly intact, DTR 2+/4. No acute focal neurological deficit. Psych/Mental Status: Normal Affect, Appropriate. Assessment & Plan Assessment/Plan (1) UTI (urinary tract infection): PLAN: Plan The patient is an 89 y/o M Lymphoma following w/ Dr. Barraza, is being admitted on 12/11/2024 with significant fatigue, malaise prompting ED evaluation. #1. Right lower lobe pneumonia, concern for aspiration pneumonitis/pneumonia with chronic Hypoxic Respiratory Failure: In ED patient had fever 103 Fahrenheit, mild tachycardia, tachypnea and borderline leukocytosis 11.1 K features suggestive of SIRS from infection right humeral pneumonia/UTI. Patient does not have any features of organ dysfunction. Patient initially started on IV vancomycin and Zosyn. MRSA nasal screen negative. As the patient is on immunotherapy/chemotherapy Imbruvica for lymphoma hence immunocompromise therefore continue IV Unasyn. Discontinue IV vancomycin. Lactic acid normal. Respiratory panel normal. Blood cultures x 2 are pending. 12/12: Prelim sputum culture shows 1+ GPC, 1+ GPR, 1+ WBC. Continue above antibiotic. #2. Acute Urinary Tract Infection with questionable right-sided hydronephrosis on CT imaging w/ associated traumatic hematuria: UA in ED shows LE positive, occult blood, nitrite positive WBC 5-10 cells, RBC more than 100 cells, squamous epithelial 0-5 cells therefore possible UTI. Patient also has perineal tenderness symptomatic hematuria after Valentino catheter. Continue p.o. antibiotic. 12/12: Urine culture pending. #3. Fatigue, debility, adult failure to thrive, multifactorial on fall precautions. PT and OT. #4. Chronic HFpEF: Most recent echocardiogram noted 07/25/2018 with normal LV size, LV systolic function normal, EF 60%, stage I diastolic dysfunction but patient is not on statin. Holding losartan and Lasix given the patient has infection and lower BP in ED. Current continue metoprolol #5. Chronic Kidney Disease Stage IIIb: Admission BUN/Cr 19/1.52, EGFR 32 mL to 35 mL/min. Baseline renal function, creatinine 1.7 from 2002-1728, repeat BMP shows slight improvement creatinine 1.34. 12/12: BUN/creatinine 13/1.13. Improvement in creatinine. #6. Hypertension: Given current presentation will temporarily hold hypertensive regimen, judiciously hydrating, add back regimen once clinically appropriate. #7. Hyperlipidemia: Currently not on regimen, defer to outpatient. #8. Lymphoma with history of remote smoking: Followed with [facility] Dr. Barraza. Patient's clarified that he is on medicine Imbruvica. Will currently hold because of the infection and high fever it seems patient on prophylactic acyclovir, continued. Patient smoked in the past remotely minimal potentially 1 to 2 cigarettes/week in his youth right eye. #9. Hypophosphatemia: IV phosphorus ordered. Is very low at 0.9. 12/12: Repeat phosphorus 2.6. Oral Neutra-Phos ordered. Serum potassium normal 3.9. 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 Plan for discharge with Valentino catheter and follow-up with urologist #11. DVT prophylaxis: Hold Lovenox today because of traumatic hematuria. #13. CODE status: Patient ERIN is his significant and living will is currently in place. Discussed CODE status at length including difference between FULL code, DNR-CCA and DNR-CC status. Following discussions about the differences in these status, requested Full Code status. Microbiology Past 72 Hours 12/11/24 13:00 Sputum, Expectorated/Coughed Gram Stain - Final 12/11/24 02:10 Nasal Secretion MRSA (PCR) - Final 12/11/24 03:40 Mucosa - Nasopharyngeal Respiratory Panel (PCR) - Final 12/11/24 02:10 Urine Catheter - Catheter Legionella Antigen - Final 12/11/24 02:10 Urine Catheter - Catheter Streptococcus pneumoniae Antigen (M - Final Laboratory Results 12/12/24 06:49: WBC 9.0, RBC 3.78 L, Hgb 11.8 L, Hct 35.8 L, MCV 94.7 H, MCH 31.2, MCHC 33.0, RDW Std Deviation 52.0 H, RDW Coeff of So 15.0 H, Plt Count 226, MPV 10.6, Immature Gran % (Auto) 0.600, Neut % (Auto) 81.8 H, Lymph % (Auto) 6.6 L, Mcduffie % (Auto) 8.0, Eos % (Auto) 2.3, Baso % (Auto) 0.7, Absolute Neuts (auto) 7.4, Absolute Lymphs (auto) 0.60 L, Nucleated RBC % 0, Sodium 139, Potassium 3.9, Chloride 108, Carbon Dioxide 22.3, Anion Gap 9, BUN 13, Creatinine 1.13, Estim Creat Clear Calc 41.56 L, Est GFR (MDRD) Non-Af 63, BUN/Creatinine Ratio 11.7, Glucose 99, Calcium 8.7, Phosphorus 2.6 L, Magnesium 2.1
[2024-12-12] MEDS: Na Biphos/Potassium Phosphate PACKET 1 PACKET PO ×2 (15:29→22:25)
[2024-12-13 04:05] VITALS: BP 141/69; PULSE 72; RESP 18; TEMP 36.8; O2SAT 98
[2024-12-13] MEDS: Na Biphos/Potassium Phosphate PACKET 1 PACKET PO (05:02)
[2024-12-13] MEDS: Piperacil/Tazobactam 3.375 GM in 0.9% Normal Saline (50mL MB+) 50 ML IV (05:03)
[2024-12-13 06:00] VITALS: BMI 26.6
[2024-12-13 06:04] LABS: Hematocrit 35.7 % (40-54); Hemoglobin 11.6 g/dL (13.0-16.5); Immature Granulocytes Count 0.020 X10^3/uL (0.0-0.0); Mean Corp Hgb Conc 32.5 g/dL (32-36); Mean Corpuscular Volume 95.5 fL (80-94); Mean Platelet Vol. 10.8 fl (6.2-12.0); NRBC Flagged by Analyzer 0 % (0-5); POSITIVE DIFFERENTIAL YES; Platelet Count 228 K/mm3 (150-450); RBC Distribution Width CV 15.2 % (11.6-14.6); RBC Distribution Width SD 53.1 fl (35.1-43.9); Red Blood Count 3.74 M/mm3 (4.6-6.2); White Blood Count 6.5 K/mm3 (4.4-11.0)
[2024-12-13 06:55] VITALS: O2SAT 93
[2024-12-13 07:09] LABS: Anion Gap 9 (5-15); BUN 14 mg/dL (4-19); BUN/Creat Ratio 12.2 RATIO (10-20); Calcium,Total 8.9 mg/dL (7.6-11.0); Carbon Dioxide 22.5 mmol/L (21.0-32.0); Chloride 110 mmol/L (98-108); Estimated Creatinine Clearance 43.46 ml/min (50-250); Glucose 84 mg/dL (70-99); Potassium 3.9 mmol/L (3.3-5.1)
[2024-12-13 09:02] VITALS: BP 126/66; PULSE 69; RESP 16; TEMP 36.9; O2SAT 92
[2024-12-13] MEDS: guaiFENesin/D-Methorphan TAB.SR.12H 2 TABLET PO (09:11)
[2024-12-13] MEDS: 0.9% Saline Lock 10 ML Syringe IV (09:28)
--- NOTE | 2024-12-13 09:57 | DCINST_ITS ---
Discharge Instructions Diet Discharge Diet: No restrictions DC O2, CPAP, BIPAP needs Home O2 Discharge instructions: No Dressing / Incision Discharge Activity: Return to Normal Activity Weight Bearing Status: Weight bearing as tolerated Dressing / Incision Call your doctor if you observe: Fever of 101 or Higher, Coldness, Increased Pain, Numbness or Tingling, Change in Color, Inability to urinate, Inability to have a bowel movement, Shortness of breath, Dizziness, Fainting spells, Swelling in the ankles, Chest pain, Prolonged hiccupping, Increased palpitations (irregular heartbeat) and Calf discomfort Follow Up Care When: IN 2 WEEKS Test Results: Test results from this visit will be discussed in further detail at your follow- up appointment, if applicable. Discharge Plan Admission Admit Date/Time: 12/11/24 00:29 Primary Reason for Your Visit: Pneumonia Attending Provider: Dougie Abdullahi Primary Care Provider: Allyson Davis Consulting Providers: Koki Begum Instructions Patient Instructions: Catheter-Linked Urinary Tract ..., Urinary Catheter Bag Care, Leg Bag Care Dc, ED Handley Catheter, Care Additional Instructions / Restrictions: Will go home with handley catheter and follow up with Dr. Martines (urologist) in 2- 3 days for removal/follow up. Discharge Orders/Prescriptions Prescriptions: New dextromethorphan-guaifenesin 60-1,200 mg tablet extended release 12 hr 1 tab PO BID 7 Days Qty: 14 0RF sennosides-docusate sodium [Stimulant Laxative Plus] 8.6-50 mg Tablet 2 tab PO BID PRN PRN (Reason: Constipation) Qty: 0 0RF potassium, sodium phosphates 280-160-250 mg Powder In Packet 1 packet PO TID 2 Days Qty: 6 0RF amoxicillin-pot clavulanate 875-125 mg tablet 1 tab PO BID 4 Days Qty: 8 0RF Continued acyclovir 200 MG capsule 200 po.syringe PO BID Patient Comments: Take 1 capsule by mouth twice daily. tamsulosin 0.4 MG capsule 0.4 mg PO DAILY Patient Comments: Take 1 capsule by mouth twice daily. furosemide 20 MG tablet 20 mg PO DAILY Patient Comments: Take 2 tablets by mouth once daily. finasteride 5 mg tablet 5 mg PO DAILY Patient Comments: 1 tablet by mouth daily cholecalciferol (vitamin D3) 2,000 UNIT capsule 2,000 unit PO DAILY melatonin 10 MG capsule 10 mg PO QHS PRN PRN (Reason: Sleep) dexamethasone [Decadron] 4 mg Tablet 2 mg PO DAILY Rx Instructions: only on day of velcade injection and day after. [id number] Tablet 1 tab PO DAILY Held losartan 100 MG tablet 100 mg PO DAILY Hold Instructions: Hold for 3 days and start at lower dose in consultation with PCP Patient Comments: Take 1 tablet by mouth once daily. Referrals / Follow Up: Mercedes Saez MD [Med Staff - Consulting] - Within 1 Month (For CKD) Laz Martines MD [Med Staff - Active Staff] - (Follow-up in 3 days for Handley catheter removal with spontaneous voiding trial) Allyson Davis NP-C [Primary Care Provider] - Disposition Disposition (needs filled in before D/C Order can be placed): Home, Self Care
--- NOTE | 2024-12-13 10:54 | PCM.DC.SUM ---
Providers Date of Admission: 12/11/24 Date of Discharge: 12/13/24 Primary Care Physician: Allyson Davis, REPAIR DEPARTMENT SUPERVISOR-C Reason For Visit: UTI, PNA, ADULT FTT Diagnosis Discharge Diagnosis (1) UTI (urinary tract infection): Status: Acute Code(s): N39.0 - Urinary tract infection, site not specified Plan The patient is an 89 y/o M Lymphoma following w/ Dr. Barraza, is being admitted on 12/11/2024 with significant fatigue, malaise prompting ED evaluation. #1. Right lower lobe pneumonia, concern for aspiration pneumonitis/pneumonia with chronic Hypoxic Respiratory Failure: In ED patient had fever 103 Fahrenheit, mild tachycardia, tachypnea and borderline leukocytosis 11.1 K features suggestive of SIRS from infection right humeral pneumonia/UTI. Patient does not have any features of organ dysfunction. Patient initially started on IV vancomycin and Zosyn. MRSA nasal screen negative. As the patient is on immunotherapy/chemotherapy Imbruvica for lymphoma hence immunocompromise therefore continue IV Unasyn. Discontinue IV vancomycin. Lactic acid normal. Respiratory panel normal. Blood cultures x 2 are pending. 12/12: Prelim sputum culture shows 1+ GPC, 1+ GPR, 1+ WBC. Continue above antibiotic. 12/13: Final respiratory culture shows mixed normal respiratory bar. Patient had about 4 days of IV antibiotics. Discharged on Augmentin for 4 more days. #2. Questionable right-sided hydronephrosis on CT imaging w/ associated traumatic hematuria: UA in ED shows LE positive, occult blood, nitrite positive WBC 5-10 cells, RBC more than 100 cells, squamous epithelial 0-5 cells abnormal UA. Patient also has perineal tenderness, symptomatic hematuria after Handley catheter probably related to urethral trauma from Handley. Continue p.o. antibiotic. 12/12: Urine culture pending. 12/13: UTI ruled out. Discussed with Dr. Martines. Patient is being discharged with Handley catheter and advised to follow-up in the office in 3 days for spontaneous voiding trial and hydronephrosis. #3. Fatigue, debility, adult failure to thrive, multifactorial on fall precautions. PT and OT. #4. Chronic HFpEF: Most recent echocardiogram noted 07/25/2018 with normal LV size, LV systolic function normal, EF 60%, stage I diastolic dysfunction but patient is not on statin. Holding losartan and Lasix given the patient has infection and lower BP in ED. Current continue metoprolol #5. Chronic Kidney Disease Stage IIIb: Admission BUN/Cr 19/1.52, EGFR 32 mL to 35 mL/min. Baseline renal function, creatinine 1.7 from [id number], repeat BMP shows slight improvement creatinine 1.34. 12/12: BUN/creatinine 13/1.13. Improvement in creatinine. 12/13: Follow-up cloth bleaching range tender Dr. Saez in the outpatient. Creatinine back to baseline 1.17. Continue holding losartan and follow with PCP #6. Hypertension: Given current presentation will temporarily hold hypertensive regimen, judiciously hydrating, add back regimen once clinically appropriate. #7. Hyperlipidemia: Currently not on regimen, defer to outpatient. #8. Lymphoma with history of remote smoking: Followed with [facility] Dr. Barraza. Patient's clarified that he is on medicine Imbruvica. Will currently hold because of the infection and high fever it seems patient on prophylactic acyclovir, continued. Patient smoked in the past remotely minimal potentially 1 to 2 cigarettes/week in his youth right eye. #9. Hypophosphatemia: IV phosphorus ordered. Is very low at 0.9. 12/12: Repeat phosphorus 2.6. Oral Neutra-Phos ordered. Serum potassium normal 3.9. Serum magnesium normal 2.1 #10. BPH with obstructive pathology: continue patient on Flomax and finasteride regimen,, Handley catheterized 12/12: Urine is clear. Plan for discharge with Handley catheter and follow-up with urologist #11. DVT prophylaxis: Hold Lovenox today because of traumatic hematuria. #13. CODE status: Patient ERIN is his significant and living will is currently in place. Discussed CODE status at length including difference between FULL code, DNR-CCA and DNR-CC status. Following discussions about the differences in these status, requested Full Code status. Discharge medication reconciliation done. Discharge follow-up instructions completed. Discharge process discussed with the patient and all questions were answered to patient's satisfaction. Follow with PCP in 1 to 2 weeks Total time spent, exact 35 minutes on discharge meds reconciliation, examination, coordination of care with nurses and ancillary staff, review of imaging and blood test and discussion with the patient on follow-up instructions. Microbiology Past 72 Hours 12/11/24 13:00 Sputum, Expectorated/Coughed Gram Stain - Final 12/11/24 13:00 Sputum, Expectorated/Coughed Respiratory Culture - Final Mixed normal respiratory bar. No Streptococcus pneumoniae, beta-hemolytic Streptococcus or Staphylococcus aureus isolated. 12/10/24 21:30 Urine Catheter - Catheter Urine Culture - Final Culture exhibits no growth. 12/10/24 21:30 Blood Culture (Wb) - Venous Blood Culture - Preliminary No growth in 48 hours. 12/10/24 21:00 Blood Culture (Wb) - Anticubital Left Blood Culture - Preliminary No growth in 48 hours. 12/11/24 02:10 Nasal Secretion MRSA (PCR) - Final 12/11/24 03:40 Mucosa - Nasopharyngeal Respiratory Panel (PCR) - Final 12/11/24 02:10 Urine Catheter - Catheter Legionella Antigen - Final 12/11/24 02:10 Urine Catheter - Catheter Streptococcus pneumoniae Antigen (M - Final Laboratory Results 12/13/24 05:05: WBC 6.5, RBC 3.74 L, Hgb 11.6 L, Hct 35.7 L, MCV 95.5 H, MCH 31.0, MCHC 32.5, RDW Std Deviation 53.1 H, RDW Coeff of So 15.2 H, Plt Count 228, MPV 10.8, Immature Gran % (Auto) 0.300, Neut % (Auto) 75.9 H, Lymph % (Auto) 8.3 L, Pershing % (Auto) 8.5, Eos % (Auto) 6.2 H, Baso % (Auto) 0.8, Absolute Neuts (auto) 4.9, Absolute Lymphs (auto) 0.54 L, Nucleated RBC % 0, Sodium 142, Potassium 3.9, Chloride 110 H, Carbon Dioxide 22.5, Anion Gap 9, BUN 14, Creatinine 1.17, Estim Creat Clear Calc 43.46 L, Est GFR (MDRD) Non-Af 60, BUN/Creatinine Ratio 12.2, Glucose 84, Calcium 8.9 Medications at Discharge Home Medications acyclovir 200 mg capsule 200 po.syringe PO BID ANTIVIRAL 02/28/19 cholecalciferol (vitamin D3) 50 mcg (2,000 unit) capsule 2,000 unit PO DAILY SUPPLEMENT 02/28/19 finasteride 5 mg tablet 5 mg PO DAILY PROSTATE 02/28/19 furosemide 20 mg tablet 20 mg PO DAILY WATER PILL 02/28/19 losartan 100 mg tablet 100 mg PO DAILY bp 02/28/19 Held on 12/13/24. Instructions: Hold for 3 days and start at lower dose in consultation with PCP melatonin 10 mg capsule 10 mg PO QHS PRN PRN Sleep 02/28/19 tamsulosin 0.4 mg capsule 0.4 mg PO DAILY BLOOD PRESSURE 02/28/19 dexamethasone 4 mg tablet (Decadron) 2 mg PO DAILY other medicine help 11/16/20 xptzipzaispm-jsvzcyfa-pfcktn tablet 1 tab PO DAILY vitamin 11/16/20 amoxicillin 875 mg-potassium clavulanate 125 mg tablet 1 tab PO BID 4 days #8 tabs 12/13/24 dextromethorphan-guaifenesin ER 60 mg-1,200 mg tab,extend release,12hr 1 tab PO BID 7 days #14 tabs 12/13/24 potassium, sodium phosphates 280 mg-160 mg-250 mg oral powder packet 1 packet PO TID 2 days #6 ea 12/13/24 sennosides 8.6 mg-docusate sodium 50 mg tablet (Stimulant Laxative Plus) 2 tab PO BID PRN PRN Constipation #0 tabs 12/13/24 Physical Exam Narrative Seen and examined No acute dizziness last 24 hours. No fever or chills. Earlier about 36 hours ago, patient had Handley catheter block due to clot but got cleared after flushing. He felt some suprapubic discomfort/pain and numbness but is feeling good now. Patient was admitted with a fever 103. He also had increased frequency and nocturia, urinating every 2 hours. Feeling weak. History of lymphoma on Imbruvica. He has cough for more than a month and brings up yellowish phlegm. Physical exam General: Alert, Oriented x3, Cooperative. BMI 26.2 kg/m? HEENT: Atraumatic, PERRLA, EOMI, Normocephalic. Oral: No Gingival or Mucosal Lesions/ Ulcerations Neck: Supple, No JVD, Negative Carotid Bruits Chest wall/Lungs: Air entry diminished in bilateral lung bases. Mild bibasilar crepitations Cardiovascular: Regular rate and rhythm, Normal S1,S2, No M/G/R Abdomen: Bowel Sounds Present, Soft, Non Tender, Non-Distended : Handley catheter. Urine is clear in the tube in the bag. No perineal tenderness no renal angle or suprapubic tenderness. Extremities: No edema, Capillary Refill Less than 3 Seconds Skin: No rashes, No breakdown Musculoskeletal: No Tenderness to Palpation of Joints or Extremities Neurological: Cranial nerves II-XII grossly intact, DTR 2+/4. No acute focal neurological deficit. Psych/Mental Status: Normal Affect, Appropriate. Weight / BMI Weight Weight: 169 lb 12.095 oz Body Mass Index (BMI) 26.6 ABG / Lab / Microbiology Data 12/13/24 05:05 12/13/24 05:05 Laboratory: Laboratory Results - last 24 hr 12/13/24 05:05: WBC 6.5, RBC 3.74 L, Hgb 11.6 L, Hct 35.7 L, MCV 95.5 H, MCH 31.0, MCHC 32.5, RDW Std Deviation 53.1 H, RDW Coeff of So 15.2 H, Plt Count 228, MPV 10.8, Immature Gran % (Auto) 0.300, Neut % (Auto) 75.9 H, Lymph % (Auto) 8.3 L, Pershing % (Auto) 8.5, Eos % (Auto) 6.2 H, Baso % (Auto) 0.8, Absolute Neuts (auto) 4.9, Absolute Lymphs (auto) 0.54 L, Nucleated RBC % 0, Sodium 142, Potassium 3.9, Chloride 110 H, Carbon Dioxide 22.5, Anion Gap 9, BUN 14, Creatinine 1.17, Estim Creat Clear Calc 43.46 L, Est GFR (MDRD) Non-Af 60, BUN/Creatinine Ratio 12.2, Glucose 84, Calcium 8.9 Microbiology: Microbiology 12/11/24 13:00 Sputum, Expectorated/Coughed Gram Stain - Final 12/11/24 13:00 Sputum, Expectorated/Coughed Respiratory Culture - Final Mixed normal respiratory bar. No Streptococcus pneumoniae, beta-hemolytic Streptococcus or Staphylococcus aureus isolated. 12/10/24 21:30 Urine Catheter - Catheter Urine Culture - Final Culture exhibits no growth. 12/10/24 21:30 Blood Culture (Wb) - Venous Blood Culture - Preliminary No growth in 48 hours. 12/10/24 21:00 Blood Culture (Wb) - Anticubital Left Blood Culture - Preliminary No growth in 48 hours. 12/11/24 02:10 Nasal Secretion MRSA (PCR) - Final 12/11/24 03:40 Mucosa - Nasopharyngeal Respiratory Panel (PCR) - Final 12/11/24 02:10 Urine Catheter - Catheter Legionella Antigen - Final 12/11/24 02:10 Urine Catheter - Catheter Streptococcus pneumoniae Antigen (M - Final D/C Instructions Discharge Diet: No restrictions Weight Bearing Status: Weight bearing as tolerated Call your doctor if you observe: Fever of 101 or Higher, Coldness, Increased Pain, Numbness or Tingling, Change in Color, Inability to urinate, Inability to have a bowel movement, Shortness of breath, Dizziness, Fainting spells, Swelling in the ankles, Chest pain, Prolonged hiccupping, Increased palpitations (irregular heartbeat) and Calf discomfort DC O2, CPAP, BIPAP Needs Home O2 Discharge instructions: No When: IN 2 WEEKS Meaningful Use Info Meaningful Use Meaningful Use Diagnoses (Choose all that apply): None applicable Ischemic Stroke Statin Dosing Therapy Reference: STATIN DOSE THERAPY REFERENCE: * Patients > 75 years receive moderate or high dose statin therapy. * Patients 75 years or YOUNGER should receive HIGH intensity statin dose unless contraindicated. You will be required to document reason for non-treatment if statin daily dose does not meet guidelines. HIGH DOSE STATIN THERAPY DAILY Atorvastatin > than or = to 40 mg Rosuvastatin > than or = to 20 mg Amlodipine + Atorvastatin > than or = to 2.5/40 mg Ezetimibe + Simvastatin 10/80 mg Simvastatin 80mg Discharge Plan Admission Admit Date/Time: 12/11/24 00:29 Primary Reason for Your Visit: RLL pneumonia Attending Provider: Dougie Abdullahi Primary Care Provider: Allyson Davis Consulting Providers: Koki Begum Instructions Patient Instructions: Catheter-Linked Urinary Tract ..., Urinary Catheter Bag Care, Leg Bag Care Dc, ED Handley Catheter, Care Additional Instructions / Restrictions: Will go home with handley catheter and follow up with Dr. Martines (urologist) in 2-3 days for removal/follow up. Discharge Orders/Prescriptions Prescriptions: New dextromethorphan-guaifenesin 60-1,200 mg tablet extended release 12 hr 1 tab PO BID 7 Days Qty: 14 0RF sennosides-docusate sodium [Stimulant Laxative Plus] 8.6-50 mg Tablet 2 tab PO BID PRN PRN (Reason: Constipation) Qty: 0 0RF potassium, sodium phosphates 280-160-250 mg Powder In Packet 1 packet PO TID 2 Days Qty: 6 0RF amoxicillin-pot clavulanate 875-125 mg tablet 1 tab PO BID 4 Days Qty: 8 0RF Continued acyclovir 200 MG capsule 200 po.syringe PO BID Patient Comments: Take 1 capsule by mouth twice daily. tamsulosin 0.4 MG capsule 0.4 mg PO DAILY Patient Comments: Take 1 capsule by mouth twice daily. furosemide 20 MG tablet 20 mg PO DAILY Patient Comments: Take 2 tablets by mouth once daily. finasteride 5 mg tablet 5 mg PO DAILY Patient Comments: 1 tablet by mouth daily cholecalciferol (vitamin D3) 2,000 UNIT capsule 2,000 unit PO DAILY melatonin 10 MG capsule 10 mg PO QHS PRN PRN (Reason: Sleep) dexamethasone [Decadron] 4 mg Tablet 2 mg PO DAILY Rx Instructions: only on day of velcade injection and day after. tlnplgvbmmim-ermxkiva-nmqikx Tablet 1 tab PO DAILY Held losartan 100 MG tablet 100 mg PO DAILY Hold Instructions: Hold for 3 days and start at lower dose in consultation with PCP Patient Comments: Take 1 tablet by mouth once daily. Referrals / Follow Up: Mercedes Saez MD [Med Staff - Consulting] - Within 1 Month (For CKD) Laz Martines MD [Med Staff - Active Staff] - (Follow-up in 3 days for Handley catheter removal with spontaneous voiding trial) Allyson Davis NP-C [Primary Care Provider] - Disposition Disposition (needs filled in before D/C Order can be placed): Home, Self Care Charges/Coding Addendum Addendum: Advised to resume embassy after completion of antibiotic. Follow-up oncologist Visit Charges Inpatient E&M: 51414 Disch Hosp >30min
[2024-12-13 11:11] VITALS: O2SAT 94; O2SAT 96
--- NOTE | 2024-12-13 11:24 | CASEMGMT ---
RADHA CM into pt room, pt lying in bed with oxygen on. Pt states he feels safe to go home. Pt has a walker at home if he should need it. Pt feels his strength is good and denies need for any therapy at home. Pt will have portable O2 tank brought in for dc. Pt did not qualify for increased oxygen rx. Pt states the nurse reviewed his catheter with him and gave him a handout. Pt states his friend also has a catheter and he can ask him questions if needed. Pt denies any further needs.
[2024-12-13 13:27] VITALS: BP 152/64; PULSE 71; RESP 16; TEMP 36.8; O2SAT 97
== END 2024-12-13 16:51 | disposition home or self-care (01) | DRG 178 ==
LOC: ED 12-11 00:29 → MS3 12-11 00:56
PROVIDERS: Admitting Provider Family Medicine; Emergency Provider Emergency Medicine; PCP Nurse Practitioner Family; Visit Provider Internal Medicine
DX: J69.0 Pneumonitis due to inhalation of food and vomit (principal); C85.90 Non-Hodgkin lymphoma, unspecified, unspecified site; I50.32 Chronic diastolic (congestive) heart failure; I13.0 Hypertensive heart and chronic kidney disease with heart failure and stage 1 through stage 4 chronic kidney disease, or unspecified chronic kidney disease; J96.11 Chronic respiratory failure with hypoxia; D84.9 Immunodeficiency, unspecified; N13.30 Unspecified hydronephrosis; R62.7 Adult failure to thrive; N18.32 Chronic kidney disease, stage 3b; G47.33 Obstructive sleep apnea (adult) (pediatric); I25.10 Atherosclerotic heart disease of native coronary artery without angina pectoris; N40.1 Benign prostatic hyperplasia with lower urinary tract symptoms; R53.81 Other malaise; Z95.5 Presence of coronary angioplasty implant and graft; Z87.891 Personal history of nicotine dependence; Z79.899 Other long term (current) drug therapy; Z79.82 Long term (current) use of aspirin; Z68.26 Body mass index [BMI] 26.0-26.9, adult
CPT/HCPCS: 36415; 51702; 71046; 71275; 76770; 80048; 80053; 81001; 83605; 83735; 84100; 85025; 85610; 85730; 87040; 87070; 87086; 87205; 87449; 87633; 87641; 92610; 93005; 94668; 97161; 99285; Q9967; A4216

== ENCOUNTER → 2024-12-19 | Outpatient (CLI) | payer MEDICARE, SELFPAY ==
[2020-06-21 12:40] VITALS: BMI 26.3
== END | disposition home or self-care (01) ==
LOC: LABSPEC 10:03
PROVIDERS: PCP Nurse Practitioner Family; Referring Provider Internal Medicine; Visit Provider Internal Medicine
DX: J18.9 Pneumonia, unspecified organism (principal); R19.7 Diarrhea, unspecified
CPT/HCPCS: 87493

== ENCOUNTER → 2025-01-12 | Outpatient (CLI) | payer MEDICARE, SELFPAY ==
[2025-01-12 11:32] VITALS: BMI 26.3
[2025-01-12 14:12] LABS: Hematocrit 40.7 % (40-54); Hemoglobin 13.1 g/dL (13.0-16.5); Immature Granulocytes Count 0.030 X10^3/uL (0.0-0.0); Mean Corp Hgb Conc 32.2 g/dL (32-36); Mean Corpuscular Volume 95.5 fL (80-94); Mean Platelet Vol. 11.3 fl (6.2-12.0); NRBC Flagged by Analyzer 0 % (0-5); Platelet Count 211 K/mm3 (150-450); RBC Distribution Width CV 16.0 % (11.6-14.6); RBC Distribution Width SD 56.7 fl (35.1-43.9); Red Blood Count 4.26 M/mm3 (4.6-6.2); White Blood Count 7.7 K/mm3 (4.4-11.0)
[2025-01-12 14:26] LABS: AST(SGOT) 19 U/L (<=37); Alanine Aminotransfer ALT/SGPT 18 U/L (<=46); Albumin, Serum 3.5 g/dL (3.4-4.8); Alkaline Phosphatase 75 U/L (40-129); Anion Gap 8 (5-15); BUN 19 mg/dL (4-19); BUN/Creat Ratio 12.3 RATIO (10-20); Calcium,Total 9.4 mg/dL (7.6-11.0); Carbon Dioxide 27.1 mmol/L (21.0-32.0); Chloride 105 mmol/L (98-108); Globulin 3.1 g/dL (2.2-4.2); Glucose 92 mg/dL (70-99); Potassium 4.1 mmol/L (3.3-5.1)
== END | disposition home or self-care (01) ==
LOC: LABSPEC 13:43
PROVIDERS: PCP Nurse Practitioner Family; Referring Provider Internal Medicine; Visit Provider Internal Medicine
DX: R04.2 Hemoptysis (principal)
CPT/HCPCS: 80053; 85025

== ENCOUNTER → 2025-01-15 | Outpatient (CLI) | payer MEDICARE, SELFPAY ==
[2025-01-12 11:32] VITALS: BMI 26.3
== END | disposition home or self-care (01) ==
PROVIDERS: PCP Nurse Practitioner Family; Referring Provider Internal Medicine; Visit Provider Internal Medicine
DX: R19.7 Diarrhea, unspecified (principal)

== ENCOUNTER → 2025-01-17 | Outpatient (CLI) | payer MEDICARE, SELFPAY ==
[2025-01-12 11:32] VITALS: BMI 26.3
== END | disposition home or self-care (01) ==
LOC: LABSPEC 12:31
PROVIDERS: PCP Nurse Practitioner Family; Referring Provider Internal Medicine; Visit Provider Internal Medicine
DX: R19.7 Diarrhea, unspecified (principal)
CPT/HCPCS: 83630; 87177; 87209; 87493

== ENCOUNTER → 2025-03-27 | Outpatient (CLI) | payer MEDICARE, SELFPAY ==
[2025-01-12 11:32] VITALS: BMI 26.3
[2025-03-27 13:26] LABS: Mucous, Urine 0 SEEN /hpf (<or=2+); Red Blood Cells-Urine 0 SEEN /hpf (0-5); Squamous Epithelial Cells - UA 0 SEEN /hpf (0-5)
[2025-03-27 15:19] LABS: Color, Urine Yellow (Yellow); Glucose, Dipstick Normal (Normal); Ketone-Dipstick Negative (Negative); Leukocyte Esterase-Dipstick Negative /ul (Negative); Nitrite-Dipstick Negative (Negative); Occult Blood-Urine Negative /ul (Negative); Protein-Dipstick 15 mg/dl (Negative); Specific Gravity, Urine 1.015 (1.002-1.030); Urine Bilirubin Dipstick Negative (Negative)
[2025-03-27 15:29] LABS: Hematocrit 43.3 % (40-54); Hemoglobin 14.0 g/dL (13.0-16.5); Immature Granulocytes Count 0.020 X10^3/uL (0.0-0.0); Mean Corp Hgb Conc 32.3 g/dL (32-36); Mean Corpuscular Volume 96.0 fL (80-94); Mean Platelet Vol. 10.7 fl (6.2-12.0); NRBC Flagged by Analyzer 0 % (0-5); Platelet Count 200 K/mm3 (150-450); RBC Distribution Width CV 15.9 % (11.6-14.6); RBC Distribution Width SD 56.4 fl (35.1-43.9); Red Blood Count 4.51 M/mm3 (4.6-6.2); White Blood Count 5.1 K/mm3 (4.4-11.0)
[2025-03-27 16:06] LABS: AST(SGOT) 27 U/L (<=37); Alanine Aminotransfer ALT/SGPT 37 U/L (<=46); Albumin, Serum 3.9 g/dL (3.4-4.8); Alkaline Phosphatase 79 U/L (40-129); Anion Gap 8 (5-15); BUN 22 mg/dL (4-19); BUN/Creat Ratio 15.0 RATIO (10-20); Calcium,Total 9.9 mg/dL (7.6-11.0); Carbon Dioxide 26.5 mmol/L (21.0-32.0); Chloride 106 mmol/L (98-108); Cholesterol 110 mg/dL (<=200); Free T3 2.4 pg/mL (2.18-3.98); Globulin 3.6 g/dL (2.2-4.2); Glucose 92 mg/dL (70-99); Low Density Lipoprotein Calc. 49 mg/dL; Potassium 4.1 mmol/L (3.3-5.1); Triglycerides 80 mg/dL; Very Low Density Lipoprotein 16 mg/dL (5-40); Vitamin D,25 Hydroxy 47.9 ng/mL (30-100); cholesterol:hdl ratio screen 2.44
== END | disposition home or self-care (01) ==
LOC: MTLAB 13:20
PROVIDERS: PCP Nurse Practitioner Family; Referring Provider Internal Medicine; Visit Provider Internal Medicine
DX: R79.89 Other specified abnormal findings of blood chemistry (principal); N18.30 Chronic kidney disease, stage 3 unspecified; R73.01 Impaired fasting glucose; E55.9 Vitamin D deficiency, unspecified
CPT/HCPCS: 36415; 80053; 80061; 81001; 82306; 83036; 84439; 84443; 84481; 85025

== ENCOUNTER → 2025-03-28 | Outpatient (CLI) | payer MEDICARE, SELFPAY ==
[2025-01-12 11:32] VITALS: BMI 26.3
== END | disposition home or self-care (01) ==
LOC: MTLAB 11:38
PROVIDERS: PCP Nurse Practitioner Family; Referring Provider Internal Medicine; Visit Provider Internal Medicine
DX: R19.7 Diarrhea, unspecified (principal)
CPT/HCPCS: 87493

== ENCOUNTER → 2025-05-31 | Outpatient (CLI) | payer MEDICARE, SELFPAY ==
[2025-01-12 11:32] VITALS: BMI 26.3
[2025-05-31 12:32] LABS: Hematocrit 41.1 % (40-54); Hemoglobin 13.1 g/dL (13.0-16.5); Immature Granulocytes Count 0.040 X10^3/uL (0.0-0.0); Mean Corp Hgb Conc 31.9 g/dL (32-36); Mean Corpuscular Volume 99.0 fL (80-94); Mean Platelet Vol. 10.6 fl (6.2-12.0); NRBC Flagged by Analyzer 0 % (0-5); Platelet Count 409 K/mm3 (150-450); RBC Distribution Width CV 15.4 % (11.6-14.6); RBC Distribution Width SD 56.1 fl (35.1-43.9); Red Blood Count 4.15 M/mm3 (4.6-6.2); White Blood Count 6.2 K/mm3 (4.4-11.0)
[2025-05-31 12:52] LABS: AST(SGOT) 47 U/L (<=37); Alanine Aminotransfer ALT/SGPT 82 U/L (<=46); Albumin, Serum 3.7 g/dL (3.4-4.8); Alkaline Phosphatase 87 U/L (40-129); Anion Gap 9 (5-15); BUN 34 mg/dL (4-19); BUN/Creat Ratio 16.5 RATIO (10-20); Calcium,Total 10.0 mg/dL (7.6-11.0); Carbon Dioxide 23.8 mmol/L (21.0-32.0); Chloride 106 mmol/L (98-108); Globulin 3.5 g/dL (2.2-4.2); Glucose 106 mg/dL (70-99); Potassium 4.1 mmol/L (3.3-5.1)
== END | disposition home or self-care (01) ==
LOC: CIMLAB 10:52
PROVIDERS: PCP Nurse Practitioner Family; Referring Provider Internal Medicine; Visit Provider Internal Medicine
DX: I48.92 Unspecified atrial flutter (principal)
CPT/HCPCS: 36415; 80053; 84443; 85025